=== PATIENT | male | born 1950 | race Caucasian/White ===

== ENCOUNTER 2018-07-09 20:06 | Emergency (ER) | payer MEDICARE, OTHER, SELFPAY ==
--- NOTE | 2018-07-09 20:06 | DI.CT.S_ITS ---
PROCEDURE: CT HEAD/BRAIN WO CON INDICATIONS: stroke symptoms w/fall TECHNIQUE: Noncontrast 4.5 mm thick angled axial sections acquired from the foramen magnum to the vertex, with coronal and sagittal reformats. For radiation dose reduction, the following was used: automated exposure control, adjustment of mA and/or kV according to patient size. COMPARISON: [facility], CT, CT CERVICAL SPINE WO CON, 07/09/2018, 20:03. FINDINGS: Image quality: Excellent. CSF spaces: Basal cisterns are patent. No extra-axial fluid collections. The ventricles are symmetric in size and shape. Brain: No intracranial bleeds or masses. There is cerebral volume loss for age, with resultant ventricular and sulcal prominence. There are periventricular and deep white matter chronic small vessel ischemic changes. There is intracranial internal carotid artery atherosclerosis. Skull and face: Calvarium and visualized facial bones appear intact, without suspicious lesions. Sinuses: Moderate mucosal thickening is seen within the ethmoid air cells. Prior antrectomy changes are seen. No abnormal mass air cell fluid is seen. IMPRESSION: Negative for acute hemorrhage. Unremarkable scan for age. Note: Case discussed by telephone with Dr. Quan at 8:20 PM on July 09, 2018. Dictated by: Rubén Lyons M.D. on 07/09/2018 at 20:19 Approved by: Rubén Lyons M.D. on 07/09/2018 at 20:21
--- NOTE | 2018-07-09 20:07 | DI.CT.S_ITS ---
PROCEDURE: CT CERVICAL SPINE WO CON INDICATIONS: fall with stroke TECHNIQUE: Noncontrast 3 mm thick sections acquired from the skull base to the T4 level. Sagittal and coronal reformats were then constructed. For radiation dose reduction, the following was used: automated exposure control, adjustment of mA and/or kV according to patient size. COMPARISON: [facility], CT, CT HEAD/BRAIN WO CON, 07/09/2018, 20:03. FINDINGS: Image quality: Excellent. Bones: Perched facets are seen at the C3-C4 level, with fracture of the inferior facet on the right at C3. There is anterolisthesis seen 4 mm. At this level, there is also fragmentation of the left-sided uncovertebral joint osteophytes. No additional fractures are seen. Moderate disc space narrowing is seen at the C3-C4, C4-C5, C5-C6, and C6-C7 levels. Endplate irregularity and sclerosis are seen, which are most prominent at the C5-C6 level. Posteriorly directed osteophytes are seen at several levels, although most prominently at C5-C6. At C5-C6, there is moderate to severe bilateral neural foraminal narrowing and moderate to severe central canal narrowing, as on series 2 image 38. Milder degenerative changes are seen elsewhere. Soft tissues: Prevertebral soft tissues are normal in thickness. No paravertebral hematomas. No apical pneumothoraces. Venous gas is seen, which is attributed to IV access. IMPRESSION: Perched facets with facet fracture at the C3-C4 level. Degenerative changes are seen, which are most prominent at C5-C6. Note: Case discussed by telephone with Dr. Quan at 8:26 PM on July 09, 2018. Dictated by: Rubén Lyons M.D. on 07/09/2018 at 20:22 Approved by: Rubén Lyons M.D. on 07/09/2018 at 20:29
[2018-07-09 20:15] VITALS: BP 138/65; PULSE 94; RESP 15; TEMP 36.2; O2SAT 100; BMI 24.8
--- NOTE | 2018-07-09 20:22 | ED.NEUROSD ---
HPI - Neuro Symptoms/Deficit General Chief Complaint: Neuro Symptoms/Deficit Stated Complaint: Code Stroke Time Seen by Provider: 07/09/18 20:06 Source: patient, family and EMS Mode of arrival: EMS Limitations: no limitations History of Present Illness HPI Narrative: Patient is a 67-year-old male who presents after a syncopal episode and left-sided weakness. He was standing in the kitchen with his family he had had 1 beer he does admit to smoking marijuana neither which have is atypical for him. He got extremely lightheaded and fell backwards striking his head. He had a brief loss of consciousness but was awake and alert and talking when EMS arrived. EMS did find that he was severely hypotensive and immediately started IV fluids. Blood pressure now is a normal limits. Glucose was also normal. He had definite left-sided arm weakness he was unable to move his arm at all or [employer] member strength. He had no facial drooping no difficulty speaking no leg weakness. Not complaining of any pain. He said he has been having some chest pain off an on for the past couple of months seems to be worse when he eats. He denies having any chest pain prior to his syncopal episode. Related Data Home Medications Medication Instructions Recorded Confirmed bupropion HCl [Wellbutrin XL] 300 mg PO QDAY #0 02/01/12 ACETAMINOPHEN (#TYLENOL) 1,000 mg PO Q4HP #0 03/29/13 NAPROXEN (NAPROSYN) 250 mg PO Q12H #0 03/29/13 meloxicam 15 mg PO QDAY #0 08/11/16 Allergies Allergy/AdvReac Type Severity Reaction Status Date / Time aspirin [ASPIRIN] Allergy Mild STUFFY Unverified 01/26/18 12:14 NOSE, WATERING EYES Review of Systems Review of Systems All systems reviewed & are unremarkable except as noted in HPI and below Constitutional Denies chills, Denies fever(s), Denies frequent falls, Denies lethargy and Denies weakness Eyes Denies change in vision, Denies eye discharge, Denies irritation and Denies loss of vision ENT Ears, Nose, Mouth, and Throat: Denies change in voice, Denies vertigo, Denies dizziness, Reports neck pain and Denies sore throat Cardiovascular Reports as per HPI, Reports chest pain, Reports syncope, Denies dyspnea and Denies dyspnea on exertion Respiratory Denies cough, Denies dyspnea, Denies dyspnea on exertion and Denies wheezing Gastrointestinal Gastrointestinal: Denies abdominal pain, Denies change in bowel habits, Denies diarrhea, Denies nausea and Denies vomiting Musculoskeletal Reports as per HPI, Reports muscle weakness and Reports neck pain Integumentary/Breasts Denies pruritus, Denies erythema, Denies rash and Denies wounds Neurologic Reports as per HPI, Denies abnormal speech, Denies vertigo, Denies dizziness, Reports syncope, Denies frequent falls, Denies lack of coordination, Denies focal weakness, Denies loss of vision, Denies convulsions, Denies seizure-like activity, Reports paresthesias (Left arm) and Denies weakness Allergic/Immunologic Denies wheezing [facility] History Healthy adult (Acute) Social History Smoking Status: Former smoker Exam Initial Vital Signs Initial Vital Signs: Vital Signs Temperature 97.2 F L 07/09/18 20:15 Pulse Rate 94 H 07/09/18 20:15 Respiratory Rate 15 07/09/18 20:15 Blood Pressure 138/65 07/09/18 20:15 Pulse Oximetry 100 07/09/18 20:15 GENERAL: Awake alert male no acute distress HEENT: Head atraumatic,EOMI, pupils reactive, face symmetric, NECK: C-collar in place some midline tenderness on and paraspinal tenderness more to the left than right CARDIOVASCULAR: Regular rate and rhythm without murmurs, rubs or gallops. RESPIRATORY: Breath sounds equal bilaterally, no wheezes rales or rhonchi. ABDOMEN: Soft, nontender. Normoactive bowel sounds all 4 quadrants. No guarding or rebound. BACK: No thoracic or lumbar tenderness no sign of trauma no step-off EXTREMITIES: Normal range of motion, no clubbing or edema. Neurovascularly intact NEUROLOGICAL: Alert and oriented x4.Normal gait and speech. Cranial nerves II through XII grossly intact. Good uxhlza-ke-iqsq, good vees-sf-souf, no dysarthria or aphasia, sensation in tact to soft touch bilaterally, no visual changes, no facial droop Left hand strength is definitely weaker than right. He is able flex and extend at his elbow when he starts moving his left shoulder he has extreme pain. SKIN: Warm, dry, no laceration, no petechiae, no rashes or lesions. Scores NIH Stroke Scale Level of Conciousness: Alert, keenly responsive Ask month/age: Answers both questions correctly. Open/close eyes, close hand: Performs both tasks correctly Best gaze horizontal: Normal Visual argueta: No visual loss Facial palsy: Normal symetrical movement Left arm drift: Some effort against gravity, cannot maintain, drifts down to bed Right arm drift: No drift for full 10 sec Left leg drift: No drift for full 10 sec Right leg drift: No drift for full 10 sec Limb ataxia: Absent Sensory on face/arms/legs: Normal, no sensory loss Best language: No aphasia, normal Dysarthria: Normal Extinction or inattention: No abnormality Total NIH Stroke scale score: 2 Course Orders Ordered: ED Orders 07/09/18 20:06 CT head/brain wo con Stat EKG-12 Lead Stat 07/09/18 20:07 CT cervical spine wo con Stat 07/09/18 20:22 CT angio head and neck Stat 07/09/18 20:44 Complete Blood Count AUTO DIFF Stat Comprehensive Metabolic Panel Stat Partial Thromboplastin Time Stat Prothrombin Time INR Stat Troponin & CK Cardiac Panel Stat 07/09/18 21:17 XR chest 1V Stat Discontinued Medications Hydromorphone HCl (Dilaudid) 0.5 mg IV NOW ONE Stop: 07/09/18 21:14 Last Admin: 07/09/18 21:14 Dose: 0.5 mg Hydromorphone HCl (Dilaudid) 1 mg IV NOW ONE Stop: 07/09/18 21:50 Last Admin: 07/09/18 21:56 Dose: 1 mg Sodium Chloride (Normal Saline 0.9%) 1,000 mls @ 150 mls/hr IV CONT CASE Last Infusion: 07/09/18 22:33 Dose: 0 mls/hr Admin: 07/09/18 21:14 Dose: 150 mls/hr Sodium Chloride (Normal Saline 0.9%) 1,000 mls @ 150 mls/hr IV CONT CASE Last Admin: 07/09/18 21:14 Dose: Not Given Vital Signs - 8 hr 07/09/18 20:15 07/09/18 21:01 07/09/18 21:30 Temperature 97.2 F L Pulse Rate 94 H 92 H 95 H Respiratory Rate 15 19 17 Blood Pressure 138/65 Blood Pressure [Right Arm] 137/67 143/69 H Pulse Oximetry 100 100 100 07/09/18 22:00 07/09/18 22:19 Temperature Pulse Rate 98 H 94 H Respiratory Rate 27 H 16 Blood Pressure 133/78 Blood Pressure [Right Arm] 133/78 Pulse Oximetry 98 99 MDM - Neuro Symptoms/Deficit Lab Data Attestation: I reviewed the patient's lab results. Result diagrams: 07/09/18 20:44 07/09/18 20:44 Lab Results 07/09/18 07/09/18 07/09/18 Range/Units 20:44 20:44 20:44 WBC 6.7 (4.5-11.0) X10^3/uL RBC 4.48 L (4.5-5.9) X10^6/uL Hgb 14.2 (13.5-17.5) g/dL Hct 41.1 (41-53) % MCV 91.7 (80-100) fL MCH 31.7 (26-34) PG MCHC 34.6 (30-36) % RDW 13.0 (11.6-14.8) % Plt Count 185 (150-400) X10^3/uL Neut % (Auto) 46.0 L (50-75) % Lymph % (Auto) 37.6 (25-40) % [place] % (Auto) 12.9 (3-14) % Eos % (Auto) 2.7 (2-4) % Baso % (Auto) 0.8 (0-2) % Neut # (Auto) 3100 (0742-6634) /uL PT 11.7 (10.1-12.7) SECONDS INR 1.1 (0.9-1.3) APTT 25 L (26.4-36.2) SECONDS Sodium 139 (137-145) mmol/L Potassium 4.0 (3.4-5.1) mmol/L Chloride 102 (98-107) mmol/L Carbon Dioxide 28 (22-32) mmol/L BUN 19 (9-20) mg/dL Creatinine 1.00 (0.66-1.25) mg/dL Estimated GFR > 60.0 (>60) mL/min BUN/Creatinine Ratio 19.0 (6-22) Glucose 98 (80-110) mg/dL Calcium 8.4 (8.4-10.2) mg/dL Total Bilirubin 0.5 (0.2-1.3) mg/dL AST 31 (17-59) IU/L ALT 36 (21-72) IU/L Alkaline Phosphatase 56 (38-126) U/L Total Creatine Kinase 154 (55-170) U/L CK-MB (CK-2) 2.66 H (<2.37) ng/mL CK-MB (CK-2) Rel Index 1.7 (1.5-5.0) % Troponin I < 0.012 (0.01-0.034) ng/mL Total Protein 5.8 L (6.3-8.2) g/dL Albumin 3.6 (3.5-5.0) g/dL Globulin 2.2 (1.7-4.1) g/dL Albumin/Globulin Ratio 1.6 (1.0-2.8) Point of Care Testing Glucose POC [address] scan - head: Radiologist's impression: [address] [address] [address] Scan Report Signed Patient: Reynaldo Main MR#: [id number] : 1950 Acct:[id number] Age/Sex: 67 / M Date of Service: 07/09/18 Loc: ED Accession Number: [id number] Procedure: CT head/brain wo con Ordering Provider: Dallin Neal D.O. PROCEDURE: CT HEAD/BRAIN WO CON INDICATIONS: stroke symptoms w/fall TECHNIQUE: Noncontrast 4.5 mm thick angled axial sections acquired from the foramen magnum to the vertex, with coronal and sagittal reformats. For radiation dose reduction, the following was used: automated exposure control, adjustment of mA and/or kV according to patient size. COMPARISON: [facility], CT, CT CERVICAL SPINE WO CON, 07/09/2018, 20:03. FINDINGS: Image quality: Excellent. CSF spaces: Basal cisterns are patent. No extra-axial fluid collections. The ventricles are symmetric in size and shape. Brain: No intracranial bleeds or masses. There is cerebral volume loss for age, with resultant ventricular and sulcal prominence. There are periventricular and deep white matter chronic small vessel ischemic changes. There is intracranial internal carotid artery atherosclerosis. Skull and face: Calvarium and visualized facial bones appear intact, without suspicious lesions. Sinuses: Moderate mucosal thickening is seen within the ethmoid air cells. Prior antrectomy changes are seen. No abnormal mass air cell fluid is seen. IMPRESSION: Negative for acute hemorrhage. Unremarkable scan for age. Note: Case discussed by telephone with Dr. Quan at 8:20 PM on July 09, 2018. Dictated by: Rubén Lyons M.D. on 07/09/2018 at 20:19 CT C-spine: Radiologist's impression: [address] [address] [address] Scan Report Signed Patient: Reynaldo Main MR#: [id number] : 1950 Acct:[id number] Age/Sex: 67 / M Date of Service: 07/09/18 Loc: ED Accession Number: [id number] Procedure: CT cervical spine wo con Ordering Provider: Dallin Neal D.O. PROCEDURE: CT CERVICAL SPINE WO CON INDICATIONS: fall with stroke TECHNIQUE: Noncontrast 3 mm thick sections acquired from the skull base to the T4 level. Sagittal and coronal reformats were then constructed. For radiation dose reduction, the following was used: automated exposure control, adjustment of mA and/or kV according to patient size. COMPARISON: [facility], CT, CT HEAD/BRAIN WO CON, 07/09/2018, 20:03. FINDINGS: Image quality: Excellent. Bones: Perched facets are seen at the C3-C4 level, with fracture of the inferior facet on the right at C3. There is anterolisthesis seen 4 mm. At this level, there is also fragmentation of the left-sided uncovertebral joint osteophytes. No additional fractures are seen. Moderate disc space narrowing is seen at the C3-C4, C4-C5, C5-C6, and C6-C7 levels. Endplate irregularity and sclerosis are seen, which are most prominent at the C5-C6 level. Posteriorly directed osteophytes are seen at several levels, although most prominently at C5-C6. At C5-C6, there is moderate to severe bilateral neural foraminal narrowing and moderate to severe central canal narrowing, as on series 2 image 38. Milder degenerative changes are seen elsewhere. Soft tissues: Prevertebral soft tissues are normal in thickness. No paravertebral hematomas. No apical pneumothoraces. Venous gas is seen, which is attributed to IV access. IMPRESSION: Perched facets with facet fracture at the C3-C4 level. Degenerative changes are seen, which are most prominent at C5-C6. Note: Case discussed by telephone with Dr. Quan at 8:26 PM on July 09, 2018. Dictated by: Rubén Lyons M.D. on 07/09/2018 at 20:22 Approved by: Rubén Lyons M.D. on 07/09/2018 at 20:29 CTA head and neck: Radiologist's impression: [place] [address] CT Scan Report Signed Patient: Reynaldo Main MR#: [id number] : 1950 Acct:[id number] Age/Sex: 67 / M Date of Service: 07/09/18 Loc: ED Accession Number: [id number] Procedure: CT angio head and neck Ordering Provider: Ann Quan D.O. PROCEDURE: CT ANGIO HEAD AND NECK INDICATIONS: left sudden weakness and syncope TECHNIQUE: Noncontrast images were recently performed and not repeated. After the administration of intravenous contrast, 1 mm thick sections acquired from the aortic arch through the [place]. Post-contrast 4.5 mm thick sections then re-acquired from the foramen magnum to the vertex. 3-dimensional ytjtede-sghvbfkxa-fuljvqhmbn (MIP) and/or volume rendering reformats were acquired of the central intracranial vasculature and neck separately. COMPARISON: [facility], CT, CT HEAD/BRAIN WO CON, 07/09/2018, 20:03. [facility], CT, CT CERVICAL SPINE WO CON, 07/09/2018, 20:03. FINDINGS: Image quality: Excellent. BRAIN: CSF spaces: Ventricles are normal in size and shape. Basal cisterns are patent. No extra-axial fluid collections. Brain: No midline shift. No intracranial bleeds or masses. Hernandez-white matter interface appears intact. Skull and face: Calvarium and facial bones appear intact, without suspicious lesions. Orbits appear normal. Sinuses: Sinuses and mastoids are clear. HEAD CT ANGIOGRAPHY: Anterior circulation: Intracranial internal carotid arteries are normal in size and flow. The flow within the paired anterior cerebral arteries is normal and symmetric. The flow within the middle cerebral arteries is normal and symmetric. The anterior communicating artery is seen. No aneurysms are seen. Posterior circulation: Visualized portions of the vertebral arteries demonstrate normal caliber, and join to form a normal appearing basilar artery. Flow within the posterior cerebral arteries is normal and symmetric. No aneurysms are seen. NECK CT ANGIOGRAPHY: Carotid system: The great vessels demonstrate a conventional anatomy as they arise from the aortic arch. The origins of the common carotid arteries appear patent. The common carotid arteries demonstrate normal caliber and courses. The bifurcation regions are both widely patent. The internal carotid arteries demonstrate normal calibers and courses. Posterior circulation: The origins of the vertebral arteries both appear widely patent. The more superior extracranial portions of both vertebral arteries also demonstrate normal courses and calibers. They join to form a normal appearing basilar artery. Soft tissues: Visualized neck soft tissues demonstrate no suspicious abnormalities. Bones: No suspicious bony lesions. Perched facets and right facet fracture can be seen at C3-C4. Degenerative changes are seen. IMPRESSION: No abnormal intracranial enhancement. No significant abnormality of the intracranial arteries can be seen. No hemodynamically significant stenosis seen involving the arteries of the neck. Perched facets at C3-C4, with associated facet fracture. Please see the recent CT C-spine report. Any quantitative measurements of stenosis were performed using NASCET criteria. Dictated by: Rubén Lyons M.D. on 07/09/2018 at 20:47 Approved by: Rubén Lyons M.D. on 07/09/2018 at 20:51 ECG Data Attestation: I personally reviewed and interpreted this ECG as follows: Prior ECG tracings: not available for review Interpretation: EKG sinus tachycardia rate [address] depression no elevations no T-wave inversions MDM Narrative Medical decision making narrative: Patient's [employer] member strength is actually getting better. CT is reviewed C3-C4 fracture. I think that his left arm weakness and strength deficit is actually Neurologic from his neck injury. possible spinal cord or nerve damage from fracture causing weakness. I do not believe this to be stroke at this time. He was no other deficits. I have discussed with Dr. hines ER physician at [facility] happily accepts patient. I have discussed with patient and family ear lift her cyst ground transport. At this time due to neurologic deficits even though improving I do recommend airlift they are agreeable. Unclear what was cause of the syncopal episode. Discharge Plan Departure Patient Disposition: [facility] Clinical Impression: Syncope, C3 cervical fracture, C4 cervical fracture Discharge Date/Time: 07/09/18 22:40 Interventions: ED Discharge Assessment Last Done: 07/09/18 23:03 Prescriptions: No Action bupropion HCl [Wellbutrin XL] 150 MG tablet extended release 24 hr 300 mg PO QDAY Qty: 0 RF: 0 NAPROXEN (NAPROSYN) 250 mg PO Q12H Qty: 0 RF: 0 ACETAMINOPHEN (#TYLENOL) 1,000 mg PO Q4HP Qty: 0 RF: 0 meloxicam 15 MG tablet 15 mg PO QDAY Qty: 0 RF: 0
--- NOTE | 2018-07-09 20:45 | PC.NURSE ---
patient changed from hard disposable collar to the vista collar while maintaining c-spine. MD aware and at bedside.
[2018-07-09 20:56] LABS: Add Manual Diff / Slide Review NO; Basophils Percent Auto 0.8 % (0-2); Eosinophils Percent Auto 2.7 % (2-4); Hematocrit 41.1 % (41-53); Hemoglobin 14.2 g/dL (13.5-17.5); Lymphocytes Percent Auto 37.6 % (25-40); Mean Corpuscular HGB Conc 34.6 % (30-36); Mean Corpuscular Hemoglobin 31.7 PG (26-34); Mean Corpuscular Volume 91.7 fL (80-100); Monocytes Percent Auto 12.9 % (3-14); Neutrophils Absolute Auto 3100 /uL (3000-5900); Platelet Count 185 X10^3/uL (150-400); Red Blood Cell Count 4.48 X10^6/uL (4.5-5.9); White Blood Cell Count 6.7 X10^3/uL (4.5-11.0)
[2018-07-09 21:01] VITALS: BP 137/67; PULSE 92; RESP 19; O2SAT 100
[2018-07-09 21:03] LABS: INR 1.1 (0.9-1.3); Prothrombin Time 11.7 SECONDS (10.1-12.7)
[2018-07-09 21:05] LABS: PTT Partial Thromboplastin Tim 25 SECONDS (26.4-36.2)
[2018-07-09 21:11] LABS: Alanine Aminotransferase 36 IU/L (21-72); Albumin 3.6 g/dL (3.5-5.0); Albumin Globulin Ratio 1.6 (1.0-2.8); Alkaline Phosphatase 56 U/L (38-126); Aspartate Aminotransferase 31 IU/L (17-59); Bilirubin Total 0.5 mg/dL (0.2-1.3); Blood Urea Nitrogen 19 mg/dL (9-20); Calcium 8.4 mg/dL (8.4-10.2); Carbon Dioxide 28 mmol/L (22-32); Chloride 102 mmol/L (98-107); Creatine Kinase 154 U/L (55-170); Estimated Glomerular Filt Rate > 60.0 mL/min (>60); Globulin 2.2 g/dL (1.7-4.1); Glucose 98 mg/dL (80-110); HEMOLYSIS < 15 (0-50); Sodium 139 mmol/L (137-145); Total Protein 5.8 g/dL (6.3-8.2)
[2018-07-09] MEDS: SODIUM CHLORIDE 0.9% 1,000 ML 150 ML IV (21:14)
[2018-07-09] MEDS: HYDROMORPHONE 1 MG INJ 0.5 MG IV (21:14)
--- NOTE | 2018-07-09 21:17 | DI.RAD.S_ITS ---
PROCEDURE: XR CHEST 1V INDICATIONS: chest pain fall backwards TECHNIQUE: One view of the chest was acquired. COMPARISON: None. FINDINGS: Surgical changes and devices: None. Lungs and pleura: No pleural effusions or pneumothorax. Lungs are clear. Mediastinum: Mediastinal contours appear normal. Heart size is normal. Bones and chest wall: No suspicious bony lesions. Overlying soft tissues appear unremarkable. IMPRESSION: No acute cardiopulmonary disease process. Dictated by: Lindsay Coppola MD, PhD on 07/10/2018 at 10:45 Approved by: Lindsay Coppola MD, PhD on 07/10/2018 at 10:46
[2018-07-09 21:26] LABS: CKMB % Relative Index 1.7 % (1.5-5.0); Creatine Kinase MB 2.66 ng/mL (<2.37)
[2018-07-09 21:27] LABS: Troponin I < 0.012 ng/mL (0.01-0.034)
[2018-07-09 21:30] VITALS: BP 143/69; PULSE 95; RESP 17; O2SAT 100
[2018-07-09] MEDS: HYDROMORPHONE 2 MG INJ 1 MG IV (21:56)
[2018-07-09 22:00] VITALS: BP 133/78; PULSE 98; RESP 27; O2SAT 98
[2018-07-09 22:19] VITALS: BP 133/78; PULSE 94; RESP 16; O2SAT 99
--- NOTE | 2018-07-09 22:38 | ED_ITS ---
HPI - Neuro Symptoms/Deficit General Chief Complaint: Neuro Symptoms/Deficit Stated Complaint: Code Stroke Time Seen by Provider: 07/09/18 20:06 Source: patient, family and EMS Mode of arrival: EMS Limitations: no limitations History of Present Illness HPI Narrative: Patient is a 67-year-old male who presents after a syncopal episode and left-sided weakness. He was standing in the kitchen with his family he had had 1 beer he does admit to smoking marijuana neither which have is atypical for him. He got extremely lightheaded and fell backwards striking his head. He had a brief loss of consciousness but was awake and alert and talking when EMS arrived. EMS did find that he was severely hypotensive and immediately started IV fluids. Blood pressure now is a normal limits. Glucose was also normal. He had definite left-sided arm weakness he was unable to move his arm at all or jira developer strength. He had no facial drooping no difficulty speaking no leg weakness. Not complaining of any pain. He said he has been having some chest pain off an on for the past couple of months seems to be worse when he eats. He denies having any chest pain prior to his syncopal episode. Related Data Home Medications Medication Instructions Recorded Confirmed bupropion HCl [Wellbutrin XL] 300 mg PO QDAY #0 02/01/12 ACETAMINOPHEN (#TYLENOL) 1,000 mg PO Q4HP #0 03/29/13 NAPROXEN (NAPROSYN) 250 mg PO Q12H #0 03/29/13 meloxicam 15 mg PO QDAY #0 08/11/16 Allergies Allergy/AdvReac Type Severity Reaction Status Date / Time aspirin [ASPIRIN] Allergy Mild STUFFY Unverified 01/26/18 12:14 NOSE, WATERING EYES Review of Systems Review of Systems All systems reviewed & are unremarkable except as noted in HPI and below Constitutional Denies chills, Denies fever(s), Denies frequent falls, Denies lethargy and Denies weakness Eyes Denies change in vision, Denies eye discharge, Denies irritation and Denies loss of vision ENT Ears, Nose, Mouth, and Throat: Denies change in voice, Denies vertigo, Denies dizziness, Reports neck pain and Denies sore throat Cardiovascular Reports as per HPI, Reports chest pain, Reports syncope, Denies dyspnea and Denies dyspnea on exertion Respiratory Denies cough, Denies dyspnea, Denies dyspnea on exertion and Denies wheezing Gastrointestinal Gastrointestinal: Denies abdominal pain, Denies change in bowel habits, Denies diarrhea, Denies nausea and Denies vomiting Musculoskeletal Reports as per HPI, Reports muscle weakness and Reports neck pain Integumentary/Breasts Denies pruritus, Denies erythema, Denies rash and Denies wounds Neurologic Reports as per HPI, Denies abnormal speech, Denies vertigo, Denies dizziness, Reports syncope, Denies frequent falls, Denies lack of coordination, Denies focal weakness, Denies loss of vision, Denies convulsions, Denies seizure-like activity, Reports paresthesias (Left arm) and Denies weakness Allergic/Immunologic Denies wheezing [facility] Medical History Healthy adult (Acute) Social History Smoking Status: Former smoker Exam Initial Vital Signs Initial Vital Signs: Vital Signs Temperature 97.2 F L 07/09/18 20:15 Pulse Rate 94 H 07/09/18 20:15 Respiratory Rate 15 07/09/18 20:15 Blood Pressure 138/65 07/09/18 20:15 Pulse Oximetry 100 07/09/18 20:15 GENERAL: Awake alert male no acute distress HEENT: Head atraumatic,EOMI, pupils reactive, face symmetric, NECK: C-collar in place some midline tenderness on and paraspinal tenderness more to the left than right CARDIOVASCULAR: Regular rate and rhythm without murmurs, rubs or gallops. RESPIRATORY: Breath sounds equal bilaterally, no wheezes rales or rhonchi. ABDOMEN: Soft, nontender. Normoactive bowel sounds all 4 quadrants. No guarding or rebound. BACK: No thoracic or lumbar tenderness no sign of trauma no step-off EXTREMITIES: Normal range of motion, no clubbing or edema. Neurovascularly intact NEUROLOGICAL: Alert and oriented x4.Normal gait and speech. Cranial nerves II through XII grossly intact. Good ltvebo-ih-drai, good xnsl-zf-kpio, no dysarthria or aphasia, sensation in tact to soft touch bilaterally, no visual changes, no facial droop Left hand strength is definitely weaker than right. He is able flex and extend at his elbow when he starts moving his left shoulder he has extreme pain. SKIN: Warm, dry, no laceration, no petechiae, no rashes or lesions. Scores NIH Stroke Scale Level of Conciousness: Alert, keenly responsive Ask month/age: Answers both questions correctly. Open/close eyes, close hand: Performs both tasks correctly Best gaze horizontal: Normal Visual argueta: No visual loss Facial palsy: Normal symetrical movement Left arm drift: Some effort against gravity, cannot maintain, drifts down to bed Right arm drift: No drift for full 10 sec Left leg drift: No drift for full 10 sec Right leg drift: No drift for full 10 sec Limb ataxia: Absent Sensory on face/arms/legs: Normal, no sensory loss Best language: No aphasia, normal Dysarthria: Normal Extinction or inattention: No abnormality Total NIH Stroke scale score: 2 Course Orders Ordered: ED Orders 07/09/18 20:06 CT head/brain wo con Stat EKG-12 Lead Stat 07/09/18 20:07 CT cervical spine wo con Stat 07/09/18 20:22 CT angio head and neck Stat 07/09/18 20:44 Complete Blood Count AUTO DIFF Stat Comprehensive Metabolic Panel Stat Partial Thromboplastin Time Stat Prothrombin Time INR Stat Troponin & CK Cardiac Panel Stat 07/09/18 21:17 XR chest 1V Stat Discontinued Medications Hydromorphone HCl (Dilaudid) 0.5 mg IV NOW ONE Stop: 07/09/18 21:14 Last Admin: 07/09/18 21:14 Dose: 0.5 mg Hydromorphone HCl (Dilaudid) 1 mg IV NOW ONE Stop: 07/09/18 21:50 Last Admin: 07/09/18 21:56 Dose: 1 mg Sodium Chloride (Normal Saline 0.9%) 1,000 mls @ 150 mls/hr IV CONT CASE Last Infusion: 07/09/18 22:33 Dose: 0 mls/hr Admin: 07/09/18 21:14 Dose: 150 mls/hr Sodium Chloride (Normal Saline 0.9%) 1,000 mls @ 150 mls/hr IV CONT CASE Last Admin: 07/09/18 21:14 Dose: Not Given Vital Signs - 8 hr 07/09/18 20:15 07/09/18 21:01 07/09/18 21:30 Temperature 97.2 F L Pulse Rate 94 H 92 H 95 H Respiratory Rate 15 19 17 Blood Pressure 138/65 Blood Pressure [Right Arm] 137/67 143/69 H Pulse Oximetry 100 100 100 07/09/18 22:00 07/09/18 22:19 Temperature Pulse Rate 98 H 94 H Respiratory Rate 27 H 16 Blood Pressure 133/78 Blood Pressure [Right Arm] 133/78 Pulse Oximetry 98 99 MDM - Neuro Symptoms/Deficit Lab Data Attestation: I reviewed the patient's lab results. Result diagrams: 07/09/18 20:44 07/09/18 20:44 Lab Results 07/09/18 07/09/18 07/09/18 Range/Units 20:44 20:44 20:44 WBC 6.7 (4.5-11.0) X10^3/uL RBC 4.48 L (4.5-5.9) X10^6/uL Hgb 14.2 (13.5-17.5) g/dL Hct 41.1 (41-53) % MCV 91.7 (80-100) fL MCH 31.7 (26-34) PG MCHC 34.6 (30-36) % RDW 13.0 (11.6-14.8) % Plt Count 185 (150-400) X10^3/uL Neut % (Auto) 46.0 L (50-75) % Lymph % (Auto) 37.6 (25-40) % Gillespie % (Auto) 12.9 (3-14) % Eos % (Auto) 2.7 (2-4) % Baso % (Auto) 0.8 (0-2) % Neut # (Auto) 3100 (0853-4832) /uL PT 11.7 (10.1-12.7) SECONDS INR 1.1 (0.9-1.3) APTT 25 L (26.4-36.2) SECONDS Sodium 139 (137-145) mmol/L Potassium 4.0 (3.4-5.1) mmol/L Chloride 102 (98-107) mmol/L Carbon Dioxide 28 (22-32) mmol/L BUN 19 (9-20) mg/dL Creatinine 1.00 (0.66-1.25) mg/dL Estimated GFR > 60.0 (>60) mL/min BUN/Creatinine Ratio 19.0 (6-22) Glucose 98 (80-110) mg/dL Calcium 8.4 (8.4-10.2) mg/dL Total Bilirubin 0.5 (0.2-1.3) mg/dL AST 31 (17-59) IU/L ALT 36 (21-72) IU/L Alkaline Phosphatase 56 (38-126) U/L Total Creatine Kinase 154 (55-170) U/L CK-MB (CK-2) 2.66 H (<2.37) ng/mL CK-MB (CK-2) Rel Index 1.7 (1.5-5.0) % Troponin I < 0.012 (0.01-0.034) ng/mL Total Protein 5.8 L (6.3-8.2) g/dL Albumin 3.6 (3.5-5.0) g/dL Globulin 2.2 (1.7-4.1) g/dL Albumin/Globulin Ratio 1.6 (1.0-2.8) Point of Care Testing Glucose POC [address] scan - head: Radiologist's impression: [address] [address] [address] Scan Report Signed Patient: Reynaldo Main MR#: [id number] : 1950 Acct:[id number] Age/Sex: 67 / M Date of Service: 07/09/18 Loc: ED Accession Number: [id number] Procedure: CT head/brain wo con Ordering Provider: Dallin Neal D.O. PROCEDURE: CT HEAD/BRAIN WO CON INDICATIONS: stroke symptoms w/fall TECHNIQUE: Noncontrast 4.5 mm thick angled axial sections acquired from the foramen magnum to the vertex, with coronal and sagittal reformats. For radiation dose reduction, the following was used: automated exposure control, adjustment of mA and/or kV according to patient size. COMPARISON: [facility], CT, CT CERVICAL SPINE WO CON, 07/09/2018, 20:03. FINDINGS: Image quality: Excellent. CSF spaces: Basal cisterns are patent. No extra-axial fluid collections. The ventricles are symmetric in size and shape. Brain: No intracranial bleeds or masses. There is cerebral volume loss for age , with resultant ventricular and sulcal prominence. There are periventricular and deep white matter chronic small vessel ischemic changes. There is intracranial internal carotid artery atherosclerosis. Skull and face: Calvarium and visualized facial bones appear intact, without suspicious lesions. Sinuses: Moderate mucosal thickening is seen within the ethmoid air cells. Prior antrectomy changes are seen. No abnormal mass air cell fluid is seen. IMPRESSION: Negative for acute hemorrhage. Unremarkable scan for age. Note: Case discussed by telephone with Dr. Quan at 8:20 PM on July 09, 2018. Dictated by: Rubén Lyons M.D. on 07/09/2018 at 20:19 CT C-spine: Radiologist's impression: [address] [address] [address] Scan Report Signed Patient: Reynaldo Main MR#: [id number] : 1950 Acct:[id number] Age/Sex: 67 / M Date of Service: 07/09/18 Loc: ED Accession Number: [id number] Procedure: CT cervical spine wo con Ordering Provider: Dallin Neal D.O. PROCEDURE: CT CERVICAL SPINE WO CON INDICATIONS: fall with stroke TECHNIQUE: Noncontrast 3 mm thick sections acquired from the skull base to the T4 level. Sagittal and coronal reformats were then constructed. For radiation dose reduction, the following was used: automated exposure control, adjustment of mA and/or kV according to patient size. COMPARISON: [facility], CT, CT HEAD/BRAIN WO CON, 07/09/2018, 20:03. FINDINGS: Image quality: Excellent. Bones: Perched facets are seen at the C3-C4 level, with fracture of the inferior facet on the right at C3. There is anterolisthesis seen 4 mm. At this level, there is also fragmentation of the left-sided uncovertebral joint osteophytes. No additional fractures are seen. Moderate disc space narrowing is seen at the C3-C4, C4-C5, C5-C6, and C6-C7 levels. Endplate irregularity and sclerosis are seen, which are most prominent at the C5-C6 level. Posteriorly directed osteophytes are seen at several levels, although most prominently at C5-C6. At C5-C6, there is moderate to severe bilateral neural foraminal narrowing and moderate to severe central canal narrowing, as on series 2 image 38. Milder degenerative changes are seen elsewhere. Soft tissues: Prevertebral soft tissues are normal in thickness. No paravertebral hematomas. No apical pneumothoraces. Venous gas is seen, which is attributed to IV access. IMPRESSION: Perched facets with facet fracture at the C3-C4 level. Degenerative changes are seen, which are most prominent at C5-C6. Note: Case discussed by telephone with Dr. Quan at 8:26 PM on July 09, 2018. Dictated by: Rubén Lyons M.D. on 07/09/2018 at 20:22 Approved by: Rubén Lyons M.D. on 07/09/2018 at 20:29 CTA head and neck: Radiologist's impression: [place] [address] CT Scan Report Signed Patient: Reynaldo Main MR#: [id number] : 1950 Acct:[id number] Age/Sex: 67 / M Date of Service: 07/09/18 Loc: ED Accession Number: [id number] Procedure: CT angio head and neck Ordering Provider: Ann Quan D.O. PROCEDURE: CT ANGIO HEAD AND NECK INDICATIONS: left sudden weakness and syncope TECHNIQUE: Noncontrast images were recently performed and not repeated. After the administration of intravenous contrast, 1 mm thick sections acquired from the aortic arch through the [place]. Post-contrast 4.5 mm thick sections then re-acquired from the foramen magnum to the vertex. 3-dimensional vlvqpip-vamzguwpf-hpiwjwveqg (MIP) and/or volume rendering reformats were acquired of the central intracranial vasculature and neck separately. COMPARISON: [facility], CT, CT HEAD/BRAIN WO CON, 07/09/2018, 20:03. [facility], CT, CT CERVICAL SPINE WO CON, 07/09/2018, 20:03. FINDINGS: Image quality: Excellent. BRAIN: CSF spaces: Ventricles are normal in size and shape. Basal cisterns are patent. No extra-axial fluid collections. Brain: No midline shift. No intracranial bleeds or masses. Hernandez-white matter interface appears intact. Skull and face: Calvarium and facial bones appear intact, without suspicious lesions. Orbits appear normal. Sinuses: Sinuses and mastoids are clear. HEAD CT ANGIOGRAPHY: Anterior circulation: Intracranial internal carotid arteries are normal in size and flow. The flow within the paired anterior cerebral arteries is normal and symmetric. The flow within the middle cerebral arteries is normal and symmetric. The anterior communicating artery is seen. No aneurysms are seen. Posterior circulation: Visualized portions of the vertebral arteries demonstrate normal caliber, and join to form a normal appearing basilar artery. Flow within the posterior cerebral arteries is normal and symmetric. No aneurysms are seen. NECK CT ANGIOGRAPHY: Carotid system: The great vessels demonstrate a conventional anatomy as they arise from the aortic arch. The origins of the common carotid arteries appear patent. The common carotid arteries demonstrate normal caliber and courses. The bifurcation regions are both widely patent. The internal carotid arteries demonstrate normal calibers and courses. Posterior circulation: The origins of the vertebral arteries both appear widely patent. The more superior extracranial portions of both vertebral arteries also demonstrate normal courses and calibers. They join to form a normal appearing basilar artery. Soft tissues: Visualized neck soft tissues demonstrate no suspicious abnormalities. Bones: No suspicious bony lesions. Perched facets and right facet fracture can be seen at C3-C4. Degenerative changes are seen. IMPRESSION: No abnormal intracranial enhancement. No significant abnormality of the intracranial arteries can be seen. No hemodynamically significant stenosis seen involving the arteries of the neck. Perched facets at C3-C4, with associated facet fracture. Please see the recent CT C-spine report. Any quantitative measurements of stenosis were performed using NASCET criteria. Dictated by: Rubén Lyons M.D. on 07/09/2018 at 20:47 Approved by: Rubén Lyons M.D. on 07/09/2018 at 20:51 ECG Data Attestation: I personally reviewed and interpreted this ECG as follows: Prior ECG tracings: not available for review Interpretation: EKG sinus tachycardia rate [address] depression no elevations no T-wave inversions MDM Narrative Medical decision making narrative: Patient's jira developer strength is actually getting better. CT is reviewed C3-C4 fracture. I think that his left arm weakness and strength deficit is actually Neurologic from his neck injury. possible spinal cord or nerve damage from fracture causing weakness. I do not believe this to be stroke at this time. He was no other deficits. I have discussed with Dr. hines ER physician at [facility] happily accepts patient. I have discussed with patient and family ear lift her cyst ground transport. At this time due to neurologic deficits even though improving I do recommend airlift they are agreeable. Unclear what was cause of the syncopal episode. Discharge Plan Departure Patient Disposition: [facility] Clinical Impression: Syncope, C3 cervical fracture, C4 cervical fracture Discharge Date/Time: 07/09/18 22:40 Interventions: ED Discharge Assessment Last Done: 07/09/18 23:03 Prescriptions: No Action bupropion HCl [Wellbutrin XL] 150 MG tablet extended release 24 hr 300 mg PO QDAY Qty: 0 RF: 0 NAPROXEN (NAPROSYN) 250 mg PO Q12H Qty: 0 RF: 0 ACETAMINOPHEN (#TYLENOL) 1,000 mg PO Q4HP Qty: 0 RF: 0 meloxicam 15 MG tablet 15 mg PO QDAY Qty: 0 RF: 0
== END 2018-07-09 22:40 | disposition short-term general hospital (02) ==
LOC: ED 21:20
PROVIDERS: Emergency Medicine; Emergency Provider Emergency Medicine; PCP Physician Assistant Medical
DX: S12.200A Unspecified displaced fracture of third cervical vertebra, initial encounter for closed fracture (principal); S12.300A Unspecified displaced fracture of fourth cervical vertebra, initial encounter for closed fracture; R55 Syncope and collapse; W19.XXXA Unspecified fall, initial encounter
CPT/HCPCS: 36415; 70450; 70496; 70498; 71045; 72125; 80053; 82550; 82553; 82962; 84484; 85025; 85610; 85730; 93005; 93041; 96361; 96374; 96375; 99284; 99291; 99292; G0390; J1170; Q9967

== ENCOUNTER 2018-07-14 22:20 | Emergency (ER) | payer MEDICARE, OTHER, SELFPAY ==
[2018-07-14 22:37] VITALS: BP 145/75; PULSE 88; RESP 16; TEMP 37.2; O2SAT 99; BMI 23.7
--- NOTE | 2018-07-14 23:24 | ED.NECK ---
HPI - Neck Pain/Injury General Chief Complaint: Neck Pain/Injury Stated Complaint: Neck Pain S/P Neck surgery Time Seen by Provider: 07/14/18 23:10 Source: patient Mode of arrival: ambulatory Limitations: no limitations History of Present Illness HPI Narrative: This is a 67-year-old male who comes to the emergency department with complaint of increase in neck pain. Patient had a fall with subsequent fall with cervical fracture and was transported to [facility]. He had surgical fixation of his fracture. This was on Wednesday the patient is continued to have pain in his neck has been minimally to moderately controlled with oxycodone q.6 hours, gabapentin, Tylenol and ibuprofen. Today patient lay down to try to take a nap and this made him much more comfortable. He did sleep but when he woke up he had a lot of pain in his neck and shoulder. Patient states this has been typical when he tries to lay down to sleep. He had oxycodone at 1:00 p.m. and gabapentin at noon. His next dose of medication was Tylenol and ibuprofen at 7:30 p.m. as well as Vicodin at 8:30 p.m. Prior to that patient had been taking oxycodone Q 6 hr. Related Data Home Medications Medication Instructions Recorded Confirmed bupropion HCl [Wellbutrin XL] 300 mg PO QDAY #0 02/01/12 ACETAMINOPHEN (#TYLENOL) 1,000 mg PO Q4HP #0 03/29/13 NAPROXEN (NAPROSYN) 250 mg PO Q12H #0 03/29/13 meloxicam 15 mg PO QDAY #0 08/11/16 Previous Rx's Medication Instructions Recorded meloxicam [Mobic] 7.5 mg PO BID PRN #20 tab 07/15/18 oxycodone 5 mg PO Q4-6H PRN #20 cap 07/15/18 Allergies Allergy/AdvReac Type Severity Reaction Status Date / Time aspirin [ASPIRIN] AdvReac Mild STUFFY Unverified 07/14/18 22:36 NOSE, WATERING EYES Review of Systems Review of Systems All systems reviewed & are unremarkable except as noted in HPI and below Constitutional Denies fever(s) and Denies weakness ENT Ears, Nose, Mouth, and Throat: Reports neck pain Gastrointestinal Gastrointestinal: Denies abdominal pain, Denies change in bowel habits, Denies diarrhea, Denies nausea and Denies vomiting Musculoskeletal Reports neck pain, Denies numbness and Denies tingling Neurologic Denies focal weakness, Denies numbness, Denies sensory deficit, Denies tingling, Denies paresthesias and Denies weakness PFSH Medical History Healthy adult (Acute) Social History Smoking Status: Former smoker Exam Narrative Exam Narrative: GEN: well nourished, well appearing male, alert and oriented x 3, patient appears to be in mild distress. HEENT: Atraumatic, pupils are equal round reactive to light, extraocular movements are intact, Patient has healing incision on his anterior neck that appears clean dry and intact without any signs of infection HEART: Regular rate and rhythm without murmur, clicks, rubs. No carotid bruits, pulses are equal in upper and lower extremities LUNGS:Lungs clear to auscultation, no wheezes, rales, crackles, chest moves symmetrically ABD:bowel sounds normal, soft, non-tender, no guarding, rebound, rigidity, no masses noted, no hepatosplenomegaly MSCL: Non-tender, no muscle atrophy, muscles strength 5/5 upper Extremities, full range of motion, normal gait, patient is sitting up on the edge of bed. NEURO:CN 2-12 intact, sensation normal, reflexes 2/4 upper extremities. Initial Vital Signs Initial Vital Signs: Vital Signs Temperature 99.0 F 07/14/18 22:37 Pulse Rate 88 07/14/18 22:37 Respiratory Rate 16 07/14/18 22:37 Blood Pressure 145/75 H 07/14/18 22:37 Pulse Oximetry 99 07/14/18 22:37 Course Orders Ordered: Discontinued Medications Diazepam (Valium) 10 mg PO NOW ONE Stop: 07/14/18 23:24 Last Admin: 07/14/18 23:35 Dose: 10 mg Hydromorphone HCl (Dilaudid) 1 mg IM NOW ONE Stop: 07/14/18 23:25 Last Admin: 07/14/18 23:35 Dose: 1 mg Reevaluation(s) Reevaluation #1: Pain at 3/10. Plan for patient f/u with pcp and discussion regarding further options for pain control. patient is sitting up on the hand that has normal range of motion. Plan for follow-up with his physicians of the short term. Pre should use the care of [facility] other are comfortable with the plan. Time: 00:11 Vital Signs - 8 hr 07/14/18 22:37 07/15/18 00:03 Temperature 99.0 F Pulse Rate 88 76 Respiratory Rate 16 16 Blood Pressure 145/75 H Blood Pressure [Left Arm] 112/72 Pulse Oximetry 99 96 Discharge Plan Departure Patient Disposition: Home Clinical Impression: Worsening of neck pain following surgery Discharge Date/Time: 07/15/18 00:20 Interventions: ED Discharge Assessment Last Done: 07/15/18 00:20 Instructions: Neck Pain (Alternative Therapy) Activity Restrictions/Additional Instructions: Follow-up tomorrow with your primary care physician for recheck and further discussion about medication for pain control. Return to the emergency department for fevers, new weakness, new numbness or difficulty with movement of your hands or arms. Prescriptions: New meloxicam [Mobic] 7.5 mg tablet 7.5 mg PO BID PRN (Reason: pain) Qty: 20 RF: 0 oxycodone 5 mg capsule 5 mg PO Q4-6H PRN (Reason: pain) Qty: 20 RF: 0 No Action bupropion HCl [Wellbutrin XL] 150 MG tablet extended release 24 hr 300 mg PO QDAY Qty: 0 RF: 0 NAPROXEN (NAPROSYN) 250 mg PO Q12H Qty: 0 RF: 0 ACETAMINOPHEN (#TYLENOL) 1,000 mg PO Q4HP Qty: 0 RF: 0 meloxicam 15 MG tablet 15 mg PO QDAY Qty: 0 RF: 0
[2018-07-14] MEDS: HYDROMORPHONE 2 MG INJ 1 MG IM (23:35)
[2018-07-14] MEDS: diazePAM 5 MG TABLET 10 MG PO (23:35)
[2018-07-15 00:03] VITALS: BP 112/72; PULSE 76; RESP 16; O2SAT 96
== END 2018-07-15 00:20 | disposition home or self-care (01) ==
PROVIDERS: Emergency Provider Emergency Medicine; Family Provider Physician Assistant Medical; PCP Physician Assistant Medical
DX: G89.18 Other acute postprocedural pain (principal); Z98.890 Other specified postprocedural states
CPT/HCPCS: 96372; 99282; 99283; J1170

== ENCOUNTER → 2019-02-08 18:39 | Outpatient (CLI) | payer MEDICARE, OTHER, SELFPAY ==
--- NOTE | 2019-02-08 | DI.MRI.S_ITS ---
PROCEDURE: MR CERVICAL SPINE WO CON INDICATIONS: DISPLACED FRACTURE OF THIRD CERVICAL VERTEBRA TECHNIQUE: Noncontrast sagittal T1 spin echo and T2 fast spin echo, sagittal STIR, foraminal oblique sagittal T2 fast spin echo, and axial gradient echo or T2 fast spin echo through the cervical spine. COMPARISON: [facility], CR, XR CHEST 1V, 07/09/2018, 21:30. [facility], CT, CT CERVICAL SPINE WO CON, 07/09/2018, 20:03. FINDINGS: Image quality: Excellent. Alignment and Curvature: Probable postsurgical susceptibility artifact although this would be better confirmed with radiographs. Trace retrolisthesis of C4 on C5, and C5 on C6. Straightening of the normal cervical lordosis. Bone Marrow: Multilevel degenerative endplate sclerosis and spurring. Diffuse facet arthropathy. Spinal Cord: Visualized spinal cord has normal size and signal. No cerebellar tonsillar herniation. Paraspinous Soft Tissues: No paravertebral masses. Prevertebral soft tissues are normal in thickness. C2-C3: Bilateral uncovertebral arthropathy and posterior intervening disc osteophyte complex, and bilateral facet disease. No definite central canal narrowing. No foraminal stenosis C3-C4: This level partially obscured by hardware artifact. Compromised axial images due to hardware, and cannot at least some degree of left-sided canal narrowing. No definite left foraminal narrowing. Mild right foraminal stenosis. C4-C5: [id number] canal narrowing which is predominantly left-sided. There is mass effect on the cord.. Severe left foraminal narrowing with compression of the nerve root. Moderate right foraminal narrowing with compression of the nerve root. C5-C6: Bilateral uncovertebral arthropathy and posterior intervening disc osteophyte complex, and bilateral facet disease. Moderate canal narrowing is present. Moderate to severe right and severe left foraminal narrowing with commensurate compression of the nerve root. C6-C7: Bilateral uncovertebral arthropathy and posterior intervening disc osteophyte complex, which is asymmetric, left greater than right. Bilateral facet arthropathy. Mild left canal narrowing. No right foraminal stenosis. Minimal left foraminal narrowing C7-T1: Normal appearance. IMPRESSION: Postsurgical changes which partially obscure the upper cervical spine as above. Moderate C4-C5 left-sided canal narrowing as above. There may also be some (lesser) degree of left-sided canal narrowing at C3-C4 however not well evaluated due to hardware artifact. Moderate C5-C6 canal stenosis. Diffuse bilateral foraminal stenoses as detailed above by spinal level. Dictated by: Sonny Angulo M.D. on 02/09/2019 at 9:08 Approved by: Sonny Angulo M.D. on 02/09/2019 at 9:18
== END ==
PROVIDERS: Family Provider Physician Assistant Medical; PCP Physician Assistant Medical; Visit Provider Neurological Surgery
DX: S12.29 Other fracture of third cervical vertebra (principal); M48.02 Spinal stenosis, cervical region
CPT/HCPCS: 72141

== ENCOUNTER 2019-07-07 20:45 | Emergency (ER) | payer MEDICARE, OTHER, SELFPAY ==
[2019-07-07 20:58] VITALS: BP 157/72; PULSE 101; RESP 19; TEMP 36.6; O2SAT 98; BMI 23.7
[2019-07-07 21:00] VITALS: BP 155/68; PULSE 90; RESP 16; O2SAT 98
--- NOTE | 2019-07-07 21:08 | ED.HA ---
HPI - Headache General Chief Complaint: Headache Stated Complaint: WANTS TO PASS OUT PAIN BACK OF HEAD NAUSEA Time Seen by Provider: 07/07/19 21:02 Source: patient Mode of arrival: Wheelchair Limitations: no limitations History of Present Illness HPI Narrative: 68-year-old male here for evaluation of a headache in the back of his head. Patient states that he was at his normal state health until shortly before arrival here in the emergency department when he was sitting at the table drinking some wine and a sudden onset of headache in the back of his head. He does state that he has had prior cervical spine surgery and has a known herniated disc and degenerative disc disease. He states he just saw his spine surgeon yesterday and was ?given a clean bill of health ?he also states that he spent about 5 hours fishing today and after he was fishing had some neck tenderness afterwards but it was nothing as bad as when he came in. No numbness or tingling in his arms or legs. States the headache is worse when he looks down and when he bends his head to the left and right. Does not worse with palpation. Related Data Home Medications Medication Instructions Recorded Confirmed bupropion HCl [Wellbutrin XL] 300 mg PO QDAY #0 02/01/12 ACETAMINOPHEN (#TYLENOL) 1,000 mg PO Q4HP #0 03/29/13 NAPROXEN (NAPROSYN) 250 mg PO Q12H #0 03/29/13 meloxicam 15 mg PO QDAY #0 08/11/16 Previous Rx's Medication Instructions Recorded meloxicam [Mobic] 7.5 mg PO BID PRN #20 tab 07/15/18 oxycodone 5 mg PO Q4-6H PRN #20 cap 07/15/18 Allergies Allergy/AdvReac Type Severity Reaction Status Date / Time aspirin [ASPIRIN] AdvReac Mild STUFFY Unverified 07/14/18 22:36 NOSE, WATERING EYES Review of Systems Constitutional Constitutional: Denies fever(s), Denies frequent falls and Reports headache(s) Eyes Eyes: Denies blurry vision, Denies diplopia and Denies loss of vision ENT Ears, Nose, Mouth, and Throat: Denies vertigo, Denies dizziness, Denies dry mouth, Reports headache(s), Reports neck pain, Denies sinus pressure and Denies sore throat Cardiovascular Cardiovascular: Denies chest pain, Denies palpitations and Denies dyspnea Respiratory Respiratory: Denies cough and Denies dyspnea Gastrointestinal Gastrointestinal: Denies abdominal pain, Denies diarrhea, Denies nausea and Denies vomiting Genitourinary Genitourinary: Denies dysuria Musculoskeletal Musculoskeletal: Denies back pain, Denies myalgias, Denies arthralgias, Reports neck pain and Denies numbness Integumentary/Breasts Skin/Breast: Denies rash Neurologic Neurologic: Denies behavioral changes, Denies burning sensations, Denies confusion, Denies vertigo, Denies dizziness, Denies frequent falls, Reports headache(s), Denies focal weakness, Denies loss of vision, Denies memory loss, Denies numbness and Denies restless legs Psychiatric Psychiatric: Denies anxiety, Denies behavioral changes, Denies confusion and Denies memory loss Endocrine Endocrine: Denies palpitations Hematologic/Lymphatic Hematologic/Lymphatic: Denies easy bleeding and Denies easy bruising Allergic/Immunologic Allergic/Immunologic: Denies urticaria [facility] Medical History Healthy adult (Acute) Social History Smoking Status: Former smoker Social History Smoking Status: Former smoker Exam Initial Vital Signs Initial Vital Signs: Vital Signs Temperature 97.9 F 07/07/19 20:58 Pulse Rate 101 H 07/07/19 20:58 Respiratory Rate 19 07/07/19 20:58 Blood Pressure 157/72 H 07/07/19 20:58 Pulse Oximetry 98 07/07/19 20:58 Const General: cooperative, comfortable, well developed, well groomed and No acute distress Orientation: alert, awake and oriented x3 HENMT Head: normal to inspection and normocephalic Ears: TM's normal bilaterally Nose: external nose normal Face and sinus: normal facial exam Eyes Pupils: PERRL EOM: EOM intact bilaterally Chest Chest: normal inspection of the chest Resp Effort & Inspection: normal respiratory effort Auscultation: clear to auscultation bilaterally Cardio Rate: tachycardic Rhythm: regular rhythm Pulses: radial pulses present GI Inspection: non-distended Palpation: soft Back/Spine/Pelvis Other: Patient without any tenderness to palpation of the cervical spine or occipital region however flexing his neck and side bending left and right does reproduce his symptoms. Skin Lesions: no lesions Rashes: no rashes Neuro General: alert, awake and oriented x3 Cranial Nerves: CN's II-XI intact bilaterally Cognition: normal cognition Speech: speech normal Motor: muscle tone normal throughout Sensory Exam: no sensory deficits noted Extrem General: normal to inspection and capillary refill normal Psych Appearance: grossly normal and well kempt Scores GCS Homer coma scale eye opening: Spontaneous Stacey coma scale verbal response: Orientated Stacey coma scale motor response: Obey commands Stacey coma scale total score: 15 Course Orders Ordered: ED Orders 07/07/19 20:58 Basic Metabolic Panel Stat Complete Blood Count AUTO DIFF Stat Partial Thromboplastin Time Stat Prothrombin Time INR Stat 07/07/19 21:10 CT head/brain wo con Stat Nicardipine HCl 25 mg/ Sodium (Chloride) 250 mls @ 50 mls/hr IV TITRATE CASE; Protocol Discontinued Medications Diazepam (Valium) 5 mg PO NOW ONE Stop: 07/07/19 21:11 Last Admin: 07/07/19 21:21 Dose: 5 mg Documented by: LREED Ketorolac Tromethamine (Toradol) 30 mg IV NOW ONE Stop: 07/07/19 21:11 Last Admin: 07/07/19 21:21 Dose: 30 mg Documented by: LREED Morphine Sulfate (Morphine) 4 mg IV NOW ONE Stop: 07/07/19 22:11 Vital Signs Vital signs: Vital Signs - 8 hr 07/07/19 20:58 07/07/19 21:00 07/07/19 21:30 Temperature 97.9 F Pulse Rate 101 H 90 101 H Respiratory Rate 19 16 18 Blood Pressure 157/72 H Blood Pressure [Left Arm] 155/68 H 157/72 H Pulse Oximetry 98 98 98 MDM - Headache Lab Data Result diagrams: 07/07/19 20:58 07/07/19 20:[address] scan - head: Radiologist's impression: [address] [address] [address] Scan Report Signed Patient: Reynaldo Main [facility]#: [id number] : 3Acct:[id number] Age/Sex: 68 / MDate of Service: 07/07/19 Loc: ED Accession Number: [id number] Procedure: CT head/brain wo con Ordering Provider: Emre Quiroga D.O. PROCEDURE: CT HEAD/BRAIN WO CON INDICATIONS: posterior headache TECHNIQUE: Noncontrast 4.5 mm thick angled axial sections acquired from the foramen magnum to the vertex, with coronal and sagittal reformats. For radiation dose reduction, the following was used: automated exposure control, adjustment of mA and/or kV according to patient size. COMPARISON: [facility], CT, CT CERVICAL SPINE WO CON, 07/09/2018, 20:03. [facility], CT, CT HEAD/BRAIN WO CON, 07/09/2018, 20:03. FINDINGS: Image quality: Excellent. CSF spaces: Basal cisterns are patent. No extra-axial fluid collections. The ventricles are symmetric in size and shape. Brain: There is a prominent amount of extra-axial intracranial hemorrhage seen, which is largely collected within the prepontine cistern and within the basal cisterns. Subarachnoid hemorrhage can be seen involving the central brain posteriorly, which is more prominent on the right side on the left. There is cerebral volume loss for age, with resultant ventricular and sulcal prominence. There are periventricular and deep white matter chronic small vessel ischemic changes. There is intracranial internal carotid artery atherosclerosis. Skull and face: Calvarium and visualized facial bones appear intact, without suspicious lesions. Sinuses: Visualized sinuses and mastoids are clear. IMPRESSION: A prominent amount of intracranial hemorrhage is seen. This pattern almost certainly represents rupture of aneurysm involving the [place]. Note: Case discussed by telephone with Dr. Quiroga at 9:45 PM on July 07, 2019. Dictated by: Rubén Lyons M.D. on 07/07/2019 at 21:42 Approved by: Rubén Lyons M.D. on 07/07/2019 at 21:46 MDM Narrative Medical decision making narrative: Initial evaluation it was suspicious for musculoskeletal etiology given the fact that his symptoms were reproducible with flexing and side bending his head. He was given Valium and Toradol. This did little to improve any of his symptoms. The CT scan did show a subarachnoid hemorrhage. This was nontraumatic. Although no IV contrast was used there is suspicious for an aneurysm. Patient at 1 point did complain of tingling in his right lower extremity but this seems of resolved. Arrival blood pressure was 150 use over 70s. I did discuss the case with emergency medicine physician at [facility] who accepts the patient. Will send by airlift. Nicardipine was started with a goal systolic blood pressure less than 140 and ideally systolic blood pressure around 120. Patient was informed of his diagnosis and the need for transport. He expressed understanding. Patient is stable for transport. Critical Care Time Critical Care Time Critical Care Time: Yes Total Critical Care Time: 35 Attestation: The high probability of a clinically significant, sudden or life threatening deterioration of the neurologic system(s) required my full and direct attention, intervention and personal management. The aggregate critical care time was 35 minutes. This time is in addition to time spent performing reported procedures but includes the following: [] Data Review and interpretation [] Patient assessment and monitoring of vital signs [] Documentation [] Medication orders and management Discharge Plan Departure Patient Disposition: [facility] Clinical Impression: Subarachnoid hemorrhage Prescriptions: No Action bupropion HCl [Wellbutrin XL] 150 MG tablet extended release 24 hr 300 mg PO QDAY Qty: 0 RF: 0 NAPROXEN (NAPROSYN) 250 mg PO Q12H Qty: 0 RF: 0 ACETAMINOPHEN (#TYLENOL) 1,000 mg PO Q4HP Qty: 0 RF: 0 meloxicam 15 MG tablet 15 mg PO QDAY Qty: 0 RF: 0 meloxicam [Mobic] 7.5 mg tablet 7.5 mg PO BID PRN (Reason: pain) Qty: 20 RF: 0 oxycodone 5 mg capsule 5 mg PO Q4-6H PRN (Reason: pain) Qty: 20 RF: 0 Referrals: Uma Amaro PA-C [Primary Care Provider] -
[2019-07-07] MEDS: KETOROLAC 60 MG/2 ML VIAL 30 MG IV (21:21)
[2019-07-07] MEDS: diazePAM 5 MG TABLET PO (21:21)
[2019-07-07 21:30] VITALS: BP 157/72; PULSE 101; RESP 18; O2SAT 98
[2019-07-07 22:13] VITALS: BP 150/81; PULSE 81; RESP 18; O2SAT 98
[2019-07-07 22:14] LABS: Add Manual Diff / Slide Review NO; Basophils Absolute Auto 0 /uL (0-100); Basophils Percent Auto 0.5 % (0-2); Eosinophils Absolute Auto 200 /uL (0-450); Eosinophils Percent Auto 2.6 % (2-4); Hematocrit 42.8 % (41-53); Hemoglobin 14.7 g/dL (13.5-17.5); Lymphocytes Absolute Auto 2900 /uL (1100-4500); Lymphocytes Percent Auto 38.6 % (25-40); Mean Corpuscular HGB Conc 34.3 % (30-36); Mean Corpuscular Hemoglobin 31.7 PG (26-34); Mean Corpuscular Volume 92.4 fL (80-100); Monocytes Absolute Auto 1100 /uL (0-900); Neutrophils Absolute Auto 3200 /uL (1500-7000); Neutrophils Percent Auto 43.3 % (50-75); Platelet Count 217 X10^3/uL (150-400); Red Blood Cell Count 4.63 X10^6/uL (4.5-5.9); Red Cell Distribution Width 12.9 % (11.6-14.8); White Blood Cell Count 7.5 X10^3/uL (4.5-11.0)
[2019-07-07 22:15] LABS: Prothrombin Time 10.9 SECONDS (10.1-12.7)
[2019-07-07 22:18] LABS: PTT Partial Thromboplastin Tim 30 SECONDS (26.4-36.2)
[2019-07-07 22:20] LABS: Blood Urea Nitrogen 26 mg/dL (9-20); Carbon Dioxide 27 mmol/L (22-32); Chloride 102 mmol/L (98-107); Estimated Glomerular Filt Rate > 60.0 mL/min (>60); Glucose 118 mg/dL (80-110); HEMOLYSIS 16 (0-50); Potassium 3.7 mmol/L (3.4-5.1); Sodium 139 mmol/L (137-145)
[2019-07-07] MEDS: MORPHINE 4 MG/ML INJ IV (22:39)
[2019-07-07] MEDS: NICARDIPINE 25 MG in SODIUM CHLORIDE 0.9% 240 ML 50 ML IV (22:39)
[2019-07-07] MEDS: ONDANSETRON 4 MG/2 ML INJ IV (23:01)
[2019-07-07 23:02] VITALS: BP 149/63; PULSE 74; RESP 16; O2SAT 99
== END 2019-07-07 23:00 | disposition short-term general hospital (02) ==
PROVIDERS: Emergency Provider Emergency Medicine; Family Provider Physician Assistant Medical; PCP Physician Assistant Medical
DX: I60.9 Nontraumatic subarachnoid hemorrhage, unspecified (principal)
CPT/HCPCS: 36591; 70450; 80048; 85025; 85610; 85730; 96365; 96375; 99283; 99284; J1885; J2270; J2405

== ENCOUNTER → 2019-09-18 09:50 | Outpatient (CLI) | payer MEDICARE, OTHER, SELFPAY ==
[2019-09-20 14:01] LABS: PSA Free % 13 % (calc) (> 25); PSA, Total 1.5 ng/mL (< 4.1)
== END ==
PROVIDERS: PCP Family Medicine; Visit Provider Physician Assistant
DX: R97.20 Elevated prostate specific antigen [PSA] (principal)
CPT/HCPCS: 36415; 84153; 84154

== ENCOUNTER 2019-09-26 09:00 | Outpatient (RCR) | payer MEDICARE, OTHER, SELFPAY ==
--- NOTE | 2019-08-10 12:24 | PT.OIE ---
Current Diagnoses Cerebral infarction, unspecified (08/10/19) Past Medical History (Last Reviewed 07/07/19 @ 22:14 by Emre Quiroga DO) Healthy adult (Acute) Visit Care Team Role Provider Type Lobito Lara MD Attending Provider Non-Staff Primary Care Provider Specialty: Family Practice Address: [address] [place] [address], [address], [place], [address] Email: Physical Therapy Initial Evaluation PT-OP-A Visit Information Start: 08/10/19 08:12 Freq: Status: Active Protocol: Document 08/10/19 10:35 HH (Rec: 08/10/19 12:09 [id number]) Out-Patient Physical Therapy Visit Information Visit Information Visit Type Initial Evaluation Visit Note co-tx with SPT Lara Visit Start Time 10:35 Visit Stop Time 11:15 Total Visit Minutes 40 Visit Number 11/05 Number of [employer] MA[employer]GER Visits 0 Evaluation Information Evaluation Date 08/10/19 Precautions Precautions no heavy lifting >5lbs until cleared by neurosurgeon in August No sports, twisting, pulling, bending or operating heavy machinery until cleared by neurosurgeon PT-OP-B Current Condition Start: 08/10/19 08:12 Freq: Status: Active Protocol: Document 08/10/19 10:35 HH (Rec: 08/10/19 12:09 [id number]) Current Condition History of Current Condition Onset Date 07/07/19 Current Complaints s/p minor CVA, decreased balance, strength and difficulty in walking History of Current Condition Pt is a 68 yo male who was admitted to ER at [facility] due to worst headache at the base of his head on , along wit nausea and vomiting. CT revealed acute diffuse subarachnoid hemorrhage. Pt said he was recovered quick from hospitalization until today. His primary c/o was decreased balance, strength and difficulty in walking. He used walker at first and progressed to be an independent ambulator. He also has c/o constant tightness at back of his head and frontal part and B hamstrings. Pt stated he is very high functional at this point and no much of deficits but want to see if participating PT will discover any deficits. Pt currently follows post CVA restrictions with no heavy lifting >5lbs, No sports, twisting, pulling, bending or operating heavy machinery until cleared by neurosurgeon. hamstring tightness, headache Prior Treatments and Tests PMH- C3-4 fx s/p C3-4 anterior cervical diskectomy and fusion in jun 2018 Future Testing and Treatments Planned Pt will see neurosurgeon in Aug. Treatment Goals Patient/Caregiver Goals 1. To improve his overall balance 2. To improve his posterior chain flexibility 3. To strengthen B LEs Prior Functional Status Baseline Function- ADL's Independent Baseline Function- Mobility Independent Baseline Function- Other Patient reports full independence prior to SAH. Current Functional Impairments (Reported) Functional Limitations- ADL's Pt reports independent with ADLs Functional Limitations- Mobility/Gait Pt reports requiring walker for mobility and ambulation initially after d/c from hospital but was then able to transition to a cane and then to no AD for short distance ambulation. Pt reports a limitation in the distance he can ambulate. Functional Limitations- Work/School Pt is retired. Functional Limitations- Other Limitations in IADLs and recreational activities d/t cont lifting and bending/ twisting restrictions. Pt notes that he still needs to use hand rails for stairs d/t feeling weak and off balance. Personal Factors Other Personal Factors That May Effect previous cervical sx 1 year Therapy/Recovery ago. PT-OP-C Subjective Start: 08/10/19 08:12 Freq: Status: Active Protocol: Document 08/10/19 10:35 (Rec: 08/10/19 12:09 [id number]) OP-PT Subjective Patient Comments Patient Comments I would like to get stronger and be able to return to my regular activities OP-PT Pain Assessment Location B hamstrings Intensity 4 Scale Used Numeric (1 - 10) Description Pulling Frequency Frequent Pain Aggravating Factors Sitting upper back Intensity 4 Scale Used Numeric (1 - 10) Description Aching,Dull Frequency Frequent Pain Aggravating Factors Activity,Exercise Pain Alleviating Factors Inactivity PT-OP-D Balance Start: 08/10/19 08:12 Freq: Status: Active Protocol: Document 08/10/19 10:35 (Rec: 08/10/19 12:09 [id number]) OP-PT Balance Assessment Sitting Balance Static Sitting Balance Ability Normal Dynamic Sitting Balance Ability Good Standing Balance Static Standing Balance Ability Good Dynamic Standing Balance Ability Fair Balance Tests Single Limb Standing Single Limb- Right 33 Single Limb- Left 7 Other Other Balance Tests Performed excessive lateral hip sway while standing on LLE Garcia Fall Scale Copyright Permission PT-OP-H Neuro Start: 08/10/19 08:12 Freq: Status: Active Protocol: Document 08/10/19 10:35 (Rec: 08/10/19 12:09 [id number]) Sensation Evaluation Gross Sensation Gross Sensation WNL Coordination Evaluation Upper Extremity Tests Right Finger to Nose Test Normal Performance Finger to Therapist's Finger Test Minimal Impairment Pronation/Supination Test Normal Performance Left Finger to Nose Test Minimal Impairment Finger to Therapist's Finger Test Minimal Impairment Pronation/Supination Test Normal Performance Lower Extremity Tests Right Alternate Heel to Knee; Heel to Toe Test Normal Performance Heel on Magdaleno Test Normal Performance Foot Tapping Test Normal Performance Left Alternate Heel to Knee; Heel to Toe Test Normal Performance Heel on Magdaleno Test Minimal Impairment Foot Tapping Test Normal Performance Deep Tendon Reflex & Clonus Assessment Deep Tendon Reflex Bilateral Achilles Deep Tendon Reflex 2+ Normal Bilateral Patellar Deep Tendon Reflex 2+ Normal Ankle Clonus Bilateral Clonus Assessment Absent PT-OP-L Special Tests Start: 08/10/19 08:12 Freq: Status: Active Protocol: Document 08/10/19 10:35 (Rec: 08/10/19 12:09 [id number]) Special Tests Neural Special Tests- Lower Body SLR Test Results B + sx reproduction, (-) sensitization Other Special Tests Special Tests single leg squat R= 22 inches L= 25 inches Hamstring length 90/90 test: B 45/90 with + sx reproduction PT-OP-M Strength Start: 08/10/19 08:12 Freq: Status: Active Protocol: Document 08/10/19 10:35 (Rec: 08/10/19 12:09 [id number]) Elbow/Forearm Strength Elbow and Forearm Manual Muscle Testing Right Flexion (C6) 4 Good Extension (C7) 4 Good Left Flexion (C6) 5 Normal Extension (C7) 5 Normal Wrist Strength Wrist Manual Muscle Testing Right Flexion (C7) 4 Good Extension (C6) 4 Good Left Flexion (C7) 5 Normal Extension (C6) 5 Normal Hip Strength Hip Manual Muscle Testing Right Flexion (L2) 4 Good Extension (S1) 5 Normal Abduction 5 Normal Adduction 5 Normal Left Flexion (L2) 4- Good- Extension (S1) 4+ Good+ Abduction 4 Good Adduction 4 Good Knee Strength Knee Manual Muscle Testing Left Flexion (S2) 5 Normal Extension (L3) 5 Normal Right Flexion (S2) 5 Normal Extension (L3) 5 Normal PT-OP-Q Treatments Start: 08/10/19 08:12 Freq: Status: Active Protocol: Document 08/10/19 10:35 HH (Rec: 08/10/19 12:09 [id number]) Therapeutic Exercises Supine Exercises bridging Side bilateral Comments cues on posterior chain hamstring dynamic stretch Supine Exercise Name HEP: hip at 90 flexion with knee extension Side bilateral Comments UE support thigh Sitting Exercises single leg squat from chair Sitting Exercise Name from 22-25 inches table Side bilateral PT-OP-T Assessment and Plan Start: 08/10/19 08:12 Freq: Status: Active Protocol: Document 08/10/19 10:35 HH (Rec: 08/10/19 12:09 [id number]) Physical Therapy Assessment Rehab Potential Rehabilitation Potential Excellent Evaluation Complexity Number of Personal Factors/Comorbidities 1-2 Number of Body Systems Impaired 1-2 Clinical Presentation at Evaluation Stable Impairments Impairments Activity Tolerance,Balance, Coordination,Functional Activities,Functional Mobility ,Gait,ROM,Soft Tissue Mobility ,Strength Goals Single leg squat Impairment Pt has impaired strength in LEs L>R Short Term Goal (STG) Pt will be able to complete SLS from 22 surface bilaterally STG Duration 4 weeks Therapy Assistant Goal (LTG) Pt will be able to complete SLS from 20 surface B to improve safety with stair climbing. LTG Duration 8 weeks Single leg balance Impairment Pt has limited ability to balance single leg L>R Short Term Goal (STG) Pt will be able to balance for 40 sec on R leg and 20 sec on L without handhold support. STG Duration 4 weeks Therapy Assistant Goal (LTG) Pt will be able to balance for 45 sec on each leg without handhold support to improve safety with mobility and ambulation. LTG Duration 8 weeks Hamstring tension Impairment Pt complains of tension and radiating pain into hamstrings Short Term Goal (STG) Pt will be able to achieve full knee extension in slump position and perform hip hinge without reporting hamstring tension. STG Duration 4 weeks Therapy Assistant Goal (LTG) Pt will be able to complete ADLs with reports of <3/10 hamstring tension to improve tolerance for regular activities. LTG Duration 8 weeks HEP Impairment Pt does not have HEP Penitentiary Goal (LTG) Pt will demonstrate HEP safely and independently to improve functional mobility and return to regular recreational activities. LTG Duration 8 weeks Assessment Summary Assessment Pt is a 68 yo male presenting to PT 1 month s/p SAH with complaints of limited activity tolerance and cont feeling of unsteadiness with ambulation and stair climbing. Upon assessment, pt demonstrates mild dysmetria and coordination deficits L>R. Pt also demonstrates LE strength, endurance, and balance deficits L>R. Pt also complains of tension/radiating pain in hamstrings that was provoked with a slump test and hamstring 90/90 test likely driven by neural tension and shortened hamstring length. Pt appears to have mild cont deficits from SAH and prolonged hospital stay, but will benefit from skilled therapy to improve L>R LE strength and balance and improve tolerance for functional activities. Physical Therapy Plan Frequency and Duration Frequency of Treatment 2x/Week Duration of Treatment 8 weeks Plan of Care Start Date 08/10/19 Plan of Care End Date 10/05/19 Therapeutic Interventions Therapeutic Interventions Balance Training,Gait Training ,Home Exercise Program,Manual Therapy,Neuromuscular Re- education,Patient/Caregiver Education,Self-Care/Home Management,Therapeutic Activities,Therapeutic Exercises Next Visit Focus/Plan Next Note Type Treatment Note Next Visit Plan Review HEP check 6 min walk test, DGI Progress SLS strengthening, balance exercises Gait training with high knees, step up/down, sit to stand
--- NOTE | 2019-08-14 15:25 | PT.OTN ---
Current Diagnoses Cerebral infarction, unspecified (08/14/19) Physical Therapy Treatment Note PT-OP-A Visit Information Start: 08/10/19 08:12 Freq: Status: Active Protocol: Document 08/14/19 15:25 SP (Rec: 08/14/19 15:49 SP [email or web address]) Out-Patient Physical Therapy Visit Information Visit Information Visit Type Treatment Note Visit Start Time 14:30 Visit Stop Time 15:25 Total Visit Minutes 55 PT-OP-B Current Condition Start: 08/10/19 08:12 Freq: Status: Active Protocol: Document 08/10/19 10:35 HH (Rec: 08/10/19 12:09 HH [id number]) Current Condition History of Current Condition Onset Date 07/07/19 Current Complaints s/p minor CVA, decreased balance, strength and difficulty in walking History of Current Condition Pt is a 68 yo male who was admitted to ER at [facility] due to worst headache at the base of his head on , along wit nausea and vomiting. CT revealed acute diffuse subarachnoid hemorrhage. Pt said he was recovered quick from hospitalization until today. His primary c/o was decreased balance, strength and difficulty in walking. He used walker at first and progressed to be an independent ambulator. He also has c/o constant tightness at back of his head and frontal part and B hamstrings. Pt stated he is very high functional at this point and no much of deficits but want to see if participating PT will discover any deficits. Pt currently follows post CVA restrictions with no heavy lifting >5lbs, No sports, twisting, pulling, bending or operating heavy machinery until cleared by neurosurgeon. hamstring tightness, headache Prior Treatments and Tests PMH- C3-4 fx s/p C3-4 anterior cervical diskectomy and fusion in jun 2018 Future Testing and Treatments Planned Pt will see neurosurgeon in Nov. Treatment Goals Patient/Caregiver Goals 1. To improve his overall balance 2. To improve his posterior chain flexibility 3. To strengthen B LEs Prior Functional Status Baseline Function- ADL's Independent Baseline Function- Mobility Independent Baseline Function- Other Patient reports full independence prior to SAH. Current Functional Impairments (Reported) Functional Limitations- ADL's Pt reports independent with ADLs Functional Limitations- Mobility/Gait Pt reports requiring walker for mobility and ambulation initially after d/c from hospital but was then able to transition to a cane and then to no AD for short distance ambulation. Pt reports a limitation in the distance he can ambulate. Functional Limitations- Work/School Pt is retired. Functional Limitations- Other Limitations in IADLs and recreational activities d/t cont lifting and bending/ twisting restrictions. Pt notes that he still needs to use hand rails for stairs d/t feeling weak and off balance. Personal Factors Other Personal Factors That May Effect previous cervical sx 1 year Therapy/Recovery ago. PT-OP-C Subjective Start: 08/10/19 08:12 Freq: Status: Active Protocol: Document 08/14/19 15:25 SP (Rec: 08/14/19 15:49 SP [email or web address]) OP-PT Subjective Patient Comments Patient Comments I would like to get stronger, my legs feel heavier and balance not as good as use to be. PT-OP-D Balance Start: 08/10/19 08:12 Freq: Status: Active Protocol: Document 08/10/19 10:35 HH (Rec: 08/10/19 12:09 [id number]) OP-PT Balance Assessment Sitting Balance Static Sitting Balance Ability Normal Dynamic Sitting Balance Ability Good Standing Balance Static Standing Balance Ability Good Dynamic Standing Balance Ability Fair Balance Tests Single Limb Standing Single Limb- Right 33 Single Limb- Left 7 Other Other Balance Tests Performed excessive lateral hip sway while standing on LLE Garcia Fall Scale Copyright Permission PT-OP-E Functional Tests Start: 08/10/19 08:12 Freq: Status: Active Protocol: Document 08/14/19 15:25 SP (Rec: 08/14/19 15:49 SP [email or web address]) Functional Tests 6 Minute Walk Test Distance 1292 Device Used 0 Comments slight wt shift x1 to R wide turning 1 corner no LOB Dynamic Gait Index (DGI) Score 23/24 DGI Impairment Rating 1 to <20% Impaired (Score 20- 23) Functional Gait Assessment Score 25/30 Functional Gait Assessment Impairment 1 to <20% Impaired (Score 25- Rating 29) PT-OP-H Neuro Start: 08/10/19 08:12 Freq: Status: Active Protocol: Document 08/10/19 10:35 HH (Rec: 08/10/19 12:09 [id number]) Sensation Evaluation Gross Sensation Gross Sensation WNL Coordination Evaluation Upper Extremity Tests Right Finger to Nose Test Normal Performance Finger to Therapist's Finger Test Minimal Impairment Pronation/Supination Test Normal Performance Left Finger to Nose Test Minimal Impairment Finger to Therapist's Finger Test Minimal Impairment Pronation/Supination Test Normal Performance Lower Extremity Tests Right Alternate Heel to Knee; Heel to Toe Test Normal Performance Heel on Magdaleno Test Normal Performance Foot Tapping Test Normal Performance Left Alternate Heel to Knee; Heel to Toe Test Normal Performance Heel on Magdaleno Test Minimal Impairment Foot Tapping Test Normal Performance Deep Tendon Reflex & Clonus Assessment Deep Tendon Reflex Bilateral Achilles Deep Tendon Reflex 2+ Normal Bilateral Patellar Deep Tendon Reflex 2+ Normal Ankle Clonus Bilateral Clonus Assessment Absent PT-OP-L Special Tests Start: 08/10/19 08:12 Freq: Status: Active Protocol: Document 08/10/19 10:35 HH (Rec: 08/10/19 12:09 HH [id number]) Special Tests Neural Special Tests- Lower Body SLR Test Results B + sx reproduction, (-) sensitization Other Special Tests Special Tests single leg squat R= 22 inches L= 25 inches Hamstring length 90/90 test: B 45/90 with + sx reproduction PT-OP-M Strength Start: 08/10/19 08:12 Freq: Status: Active Protocol: Document 08/10/19 10:35 HH (Rec: 08/10/19 12:09 [id number]) Elbow/Forearm Strength Elbow and Forearm Manual Muscle Testing Right Flexion (C6) 4 Good Extension (C7) 4 Good Left Flexion (C6) 5 Normal Extension (C7) 5 Normal Wrist Strength Wrist Manual Muscle Testing Right Flexion (C7) 4 Good Extension (C6) 4 Good Left Flexion (C7) 5 Normal Extension (C6) 5 Normal Hip Strength Hip Manual Muscle Testing Right Flexion (L2) 4 Good Extension (S1) 5 Normal Abduction 5 Normal Adduction 5 Normal Left Flexion (L2) 4- Good- Extension (S1) 4+ Good+ Abduction 4 Good Adduction 4 Good Knee Strength Knee Manual Muscle Testing Left Flexion (S2) 5 Normal Extension (L3) 5 Normal Right Flexion (S2) 5 Normal Extension (L3) 5 Normal PT-OP-Q Treatments Start: 08/10/19 08:12 Freq: Status: Active Protocol: Document 08/14/19 15:25 SP (Rec: 08/14/19 15:49 SP [email or web address]) Therapeutic Exercises Supine Exercises sciatic nerve floss Reps/Minutes x10 Comments UE support thigh, head and toe same direction, no noted benefit/worsening bridging Side bilateral Reps/Minutes x10 HEP review Comments cues on posterior chain hamstring dynamic stretch Supine Exercise Name HEP: hip at 90 flexion with knee extension Side bilateral Reps/Minutes x10 HEP review Comments UE support thigh, cued slow transition in/out stretch Sitting Exercises glut stretch Sitting Exercise Name ER/IR Side bilateral Reps/Minutes 30 x2-3 Comments Leg cross over opposite knee, rest position then toward floor, then opp shd trunk LB stretch Sitting Exercise Name hip hinge toward between feet Reps/Minutes x10 Comments cued open up hip HS stretch Side bilateral Reps/Minutes 30 x2 Standing Exercises Single leg stance Side bilateral Reps/Minutes 30 x 3 Comments contact support as needed, level pelvis eccentric step down Side bilateral Equipment Used 4 step Reps/Minutes 3x10 Comments midfoot/heel press, posterior chain emphasis activation, knee alignment Manual Therapy Treatment Soft Tissue Mobilization HS roll Body Location HS liliya Mobilization Type Rolling Intensity/Depth Moderate Body Position Sitting Comments stick/foam roll HS PT-OP-T Assessment and Plan Start: 08/10/19 08:12 Freq: Status: Active Protocol: Document 08/14/19 15:25 SP (Rec: 08/14/19 15:49 SP [email or web address]) Physical Therapy Assessment Assessment Summary Assessment Tx focused on flexibility, review HEP cued for proper form slow control, DGI/FGA/ 6MWT assessment for baseline. Pt scored 1<20% risk for falls . No adverse reactions to new introduced to glut step downs/ SLS or stretch/rolling. Physical Therapy Plan Frequency and Duration Frequency of Treatment 2x/Week Duration of Treatment 8 weeks Plan of Care Start Date 08/10/19 Plan of Care End Date 10/05/19 Therapeutic Interventions Therapeutic Interventions Balance Training,Gait Training ,Home Exercise Program,Manual Therapy,Neuromuscular Re- education,Patient/Caregiver Education,Self-Care/Home Management,Therapeutic Activities,Therapeutic Exercises Next Visit Focus/Plan Next Note Type Treatment Note Next Visit Plan Review HEP Progress SLS strengthening, balance exercises Gait training with high knees, step up/down, sit to stand
--- NOTE | 2019-08-17 13:52 | PT.OTN ---
Current Diagnoses Cerebral infarction, unspecified (08/17/19) Physical Therapy Treatment Note PT-OP-A Visit Information Start: 08/10/19 08:12 Freq: Status: Active Protocol: Document 08/17/19 13:02 HH (Rec: 08/17/19 13:51 HH [id number]) Out-Patient Physical Therapy Visit Information Visit Information Visit Type Treatment Note Visit Start Time 13:02 Visit Stop Time 13:45 Total Visit Minutes 43 Visit Number 01/03 Number of SENIOR UI WEB DEVELOPER Visits 0 PT-OP-B Current Condition Start: 08/10/19 08:12 Freq: Status: Active Protocol: Document 08/10/19 10:35 HH (Rec: 08/10/19 12:09 [id number]) Current Condition History of Current Condition Onset Date 07/07/19 Current Complaints s/p minor CVA, decreased balance, strength and difficulty in walking History of Current Condition Pt is a 68 yo male who was admitted to ER at [facility] due to worst headache at the base of his head on , along wit nausea and vomiting. CT revealed acute diffuse subarachnoid hemorrhage. Pt said he was recovered quick from hospitalization until today. His primary c/o was decreased balance, strength and difficulty in walking. He used walker at first and progressed to be an independent ambulator. He also has c/o constant tightness at back of his head and frontal part and B hamstrings. Pt stated he is very high functional at this point and no much of deficits but want to see if participating PT will discover any deficits. Pt currently follows post CVA restrictions with no heavy lifting >5lbs, No sports, twisting, pulling, bending or operating heavy machinery until cleared by neurosurgeon. hamstring tightness, headache Prior Treatments and Tests PMH- C3-4 fx s/p C3-4 anterior cervical diskectomy and fusion in jun 2018 Future Testing and Treatments Planned Pt will see neurosurgeon in Nov. Treatment Goals Patient/Caregiver Goals 1. To improve his overall balance 2. To improve his posterior chain flexibility 3. To strengthen B LEs Prior Functional Status Baseline Function- ADL's Independent Baseline Function- Mobility Independent Baseline Function- Other Patient reports full independence prior to SAH. Current Functional Impairments (Reported) Functional Limitations- ADL's Pt reports independent with ADLs Functional Limitations- Mobility/Gait Pt reports requiring walker for mobility and ambulation initially after d/c from hospital but was then able to transition to a cane and then to no AD for short distance ambulation. Pt reports a limitation in the distance he can ambulate. Functional Limitations- Work/School Pt is retired. Functional Limitations- Other Limitations in IADLs and recreational activities d/t cont lifting and bending/ twisting restrictions. Pt notes that he still needs to use hand rails for stairs d/t feeling weak and off balance. Personal Factors Other Personal Factors That May Effect previous cervical sx 1 year Therapy/Recovery ago. PT-OP-C Subjective Start: 08/10/19 08:12 Freq: Status: Active Protocol: Document 08/17/19 13:02 HH (Rec: 08/17/19 13:51 HH [id number]) OP-PT Subjective Patient Comments Patient Comments I had severe back pain last night after i did my exercise. I was wondering that if we should be careful since my neurosurgeon said no BLT until i see him. I had to take oxycodone last night and today which is uncommon for me since karlos off from that for 10 days. I do feel my hamstrings are getting more flexible PT-OP-D Balance Start: 08/10/19 08:12 Freq: Status: Active Protocol: Document 08/10/19 10:35 HH (Rec: 08/10/19 12:09 [id number]) OP-PT Balance Assessment Sitting Balance Static Sitting Balance Ability Normal Dynamic Sitting Balance Ability Good Standing Balance Static Standing Balance Ability Good Dynamic Standing Balance Ability Fair Balance Tests Single Limb Standing Single Limb- Right 33 Single Limb- Left 7 Other Other Balance Tests Performed excessive lateral hip sway while standing on LLE Garcia Fall Scale Copyright Permission PT-OP-E Functional Tests Start: 08/10/19 08:12 Freq: Status: Active Protocol: Document 08/14/19 15:25 SP (Rec: 08/14/19 15:49 SP [email or web address]) Functional Tests 6 Minute Walk Test Distance 1292 Device Used 0 Comments slight wt shift x1 to R wide turning 1 corner no LOB Dynamic Gait Index (DGI) Score 23/24 DGI Impairment Rating 1 to <20% Impaired (Score 20- 23) Functional Gait Assessment Score 25/30 Functional Gait Assessment Impairment 1 to <20% Impaired (Score 25- Rating 29) PT-OP-H Neuro Start: 08/10/19 08:12 Freq: Status: Active Protocol: Document 08/10/19 10:35 (Rec: 08/10/19 12:09 [id number]) Sensation Evaluation Gross Sensation Gross Sensation WNL Coordination Evaluation Upper Extremity Tests Right Finger to Nose Test Normal Performance Finger to Therapist's Finger Test Minimal Impairment Pronation/Supination Test Normal Performance Left Finger to Nose Test Minimal Impairment Finger to Therapist's Finger Test Minimal Impairment Pronation/Supination Test Normal Performance Lower Extremity Tests Right Alternate Heel to Knee; Heel to Toe Test Normal Performance Heel on Magdaleno Test Normal Performance Foot Tapping Test Normal Performance Left Alternate Heel to Knee; Heel to Toe Test Normal Performance Heel on Magdaleno Test Minimal Impairment Foot Tapping Test Normal Performance Deep Tendon Reflex & Clonus Assessment Deep Tendon Reflex Bilateral Achilles Deep Tendon Reflex 2+ Normal Bilateral Patellar Deep Tendon Reflex 2+ Normal Ankle Clonus Bilateral Clonus Assessment Absent PT-OP-L Special Tests Start: 08/10/19 08:12 Freq: Status: Active Protocol: Document 08/10/19 10:35 (Rec: 08/10/19 12:09 [id number]) Special Tests Neural Special Tests- Lower Body SLR Test Results B + sx reproduction, (-) sensitization Other Special Tests Special Tests single leg squat R= 22 inches L= 25 inches Hamstring length 90/90 test: B 45/90 with + sx reproduction PT-OP-M Strength Start: 08/10/19 08:12 Freq: Status: Active Protocol: Document 08/10/19 10:35 (Rec: 08/10/19 12:09 [id number]) Elbow/Forearm Strength Elbow and Forearm Manual Muscle Testing Right Flexion (C6) 4 Good Extension (C7) 4 Good Left Flexion (C6) 5 Normal Extension (C7) 5 Normal Wrist Strength Wrist Manual Muscle Testing Right Flexion (C7) 4 Good Extension (C6) 4 Good Left Flexion (C7) 5 Normal Extension (C6) 5 Normal Hip Strength Hip Manual Muscle Testing Right Flexion (L2) 4 Good Extension (S1) 5 Normal Abduction 5 Normal Adduction 5 Normal Left Flexion (L2) 4- Good- Extension (S1) 4+ Good+ Abduction 4 Good Adduction 4 Good Knee Strength Knee Manual Muscle Testing Left Flexion (S2) 5 Normal Extension (L3) 5 Normal Right Flexion (S2) 5 Normal Extension (L3) 5 Normal PT-OP-Q Treatments Start: 08/10/19 08:12 Freq: Status: Active Protocol: Document 08/17/19 13:02 (Rec: 08/17/19 13:51 [id number]) Therapeutic Exercises Sitting Exercises seated nerve floss Sitting Exercise Name HS flexibility and sciatic nerve glide Side bilateral Standing Exercises standing tennis ball relase Standing Exercise Name at L thoracic paraspinals Side left Comments self release Single leg stance Side bilateral Reps/Minutes 30 x 3 Comments contact support as needed, level pelvis Other Exercises birddog Side bilateral Reps/Minutes 5 x 3 Comments isolated arm lift/ isolated hip extension Therapeutic Activity Therapeutic Activity bed rolling Comments use of log roll and LLE to push off during rolling to minimize low back involvment. Manual Therapy Treatment Soft Tissue Mobilization L paraspinals Body Location T10 region and QL Mobilization Type Sustained Pressure,Trigger Point Release Intensity/Depth Moderate Body Position Sidelying Comments with UE abduction PT-OP-T Assessment and Plan Start: 08/10/19 08:12 Freq: Status: Active Protocol: Document 08/17/19 13:02 (Rec: 08/17/19 13:51 [id number]) Physical Therapy Assessment Goals Single leg squat Impairment Pt has impaired strength in LEs L>R Short Term Goal (STG) Pt will be able to complete SLS from 22 surface bilaterally STG Duration 4 weeks Senior Living Goal (LTG) Pt will be able to complete SLS from 20 surface B to improve safety with stair climbing. LTG Duration 8 weeks Single leg balance Impairment Pt has limited ability to balance single leg L>R Short Term Goal (STG) Pt will be able to balance for 40 sec on R leg and 20 sec on L without handhold support. STG Duration 4 weeks Senior Living Goal (LTG) Pt will be able to balance for 45 sec on each leg without handhold support to improve safety with mobility and ambulation. LTG Duration 8 weeks Hamstring tension Impairment Pt complains of tension and radiating pain into hamstrings Short Term Goal (STG) Pt will be able to achieve full knee extension in slump position and perform hip hinge without reporting hamstring tension. STG Duration 4 weeks Childcare Center Director Goal (LTG) Pt will be able to complete ADLs with reports of <3/10 hamstring tension to improve tolerance for regular activities. LTG Duration 8 weeks HEP Impairment Pt does not have HEP Senior Living Goal (LTG) Pt will demonstrate HEP safely and independently to improve functional mobility and return to regular recreational activities. LTG Duration 8 weeks Assessment Summary Assessment Pt has worsening back pain after HEP last night. Pt reports increased back pain with trunk extension and R lateral flexion (closed packed positions). Pt currently still have movement restrictions from his neurosurgeon (NO BLT, no lifting >5 lbs) until he's cleared in Nov appt. Modified pt's HEP to minimize low back involvement. Also educated him to use log roll for bed mobility. Physical Therapy Plan Next Visit Focus/Plan Next Note Type Treatment Note Next Visit Plan Review HEP Progress SLS strengthening, balance exercises Gait training with high knees, step up/down, sit to stand
--- NOTE | 2019-08-21 14:34 | PT.OTN ---
Current Diagnoses Cerebral infarction, unspecified (08/21/19) Physical Therapy Treatment Note PT-OP-A Visit Information Start: 08/10/19 08:12 Freq: Status: Active Protocol: Document 08/21/19 14:34 SP (Rec: 08/21/19 15:49 SP [email or web address]) Out-Patient Physical Therapy Visit Information Visit Information Visit Type Treatment Note Visit Start Time 13:48 Visit Stop Time 14:34 Total Visit Minutes 47 Visit Number 02/03 Number of CRYPTOLOGIC LINGUIST Visits 1 PT-OP-B Current Condition Start: 08/10/19 08:12 Freq: Status: Active Protocol: Document 08/10/19 10:35 HH (Rec: 08/10/19 12:09 HH [id number]) Current Condition History of Current Condition Onset Date 07/07/19 Current Complaints s/p minor CVA, decreased balance, strength and difficulty in walking History of Current Condition Pt is a 68 yo male who was admitted to ER at [facility] due to worst headache at the base of his head on , along wit nausea and vomiting. CT revealed acute diffuse subarachnoid hemorrhage. Pt said he was recovered quick from hospitalization until today. His primary c/o was decreased balance, strength and difficulty in walking. He used walker at first and progressed to be an independent ambulator. He also has c/o constant tightness at back of his head and frontal part and B hamstrings. Pt stated he is very high functional at this point and no much of deficits but want to see if participating PT will discover any deficits. Pt currently follows post CVA restrictions with no heavy lifting >5lbs, No sports, twisting, pulling, bending or operating heavy machinery until cleared by neurosurgeon. hamstring tightness, headache Prior Treatments and Tests PMH- C3-4 fx s/p C3-4 anterior cervical diskectomy and fusion in jun 2018 Future Testing and Treatments Planned Pt will see neurosurgeon in Nov. Treatment Goals Patient/Caregiver Goals 1. To improve his overall balance 2. To improve his posterior chain flexibility 3. To strengthen B LEs Prior Functional Status Baseline Function- ADL's Independent Baseline Function- Mobility Independent Baseline Function- Other Patient reports full independence prior to SAH. Current Functional Impairments (Reported) Functional Limitations- ADL's Pt reports independent with ADLs Functional Limitations- Mobility/Gait Pt reports requiring walker for mobility and ambulation initially after d/c from hospital but was then able to transition to a cane and then to no AD for short distance ambulation. Pt reports a limitation in the distance he can ambulate. Functional Limitations- Work/School Pt is retired. Functional Limitations- Other Limitations in IADLs and recreational activities d/t cont lifting and bending/ twisting restrictions. Pt notes that he still needs to use hand rails for stairs d/t feeling weak and off balance. Personal Factors Other Personal Factors That May Effect previous cervical sx 1 year Therapy/Recovery ago. PT-OP-C Subjective Start: 08/10/19 08:12 Freq: Status: Active Protocol: Document 08/21/19 14:34 SP (Rec: 08/21/19 15:49 SP [email or web address]) OP-PT Subjective Patient Comments Patient Comments I felt alot better after last tx, the modifications with HEP helped alot. I feel pretty good today, doing my exercises, want to review the hands and knees exercise added last time. Patient Reported Progress Improving PT-OP-D Balance Start: 08/10/19 08:12 Freq: Status: Active Protocol: Document 08/10/19 10:35 HH (Rec: 08/10/19 12:09 [id number]) OP-PT Balance Assessment Sitting Balance Static Sitting Balance Ability Normal Dynamic Sitting Balance Ability Good Standing Balance Static Standing Balance Ability Good Dynamic Standing Balance Ability Fair Balance Tests Single Limb Standing Single Limb- Right 33 Single Limb- Left 7 Other Other Balance Tests Performed excessive lateral hip sway while standing on LLE Garcia Fall Scale Copyright Permission PT-OP-E Functional Tests Start: 08/10/19 08:12 Freq: Status: Active Protocol: Document 08/14/19 15:25 SP (Rec: 08/14/19 15:49 SP [email or web address]) Functional Tests 6 Minute Walk Test Distance 1292 Device Used 0 Comments slight wt shift x1 to R wide turning 1 corner no LOB Dynamic Gait Index (DGI) Score 23/24 DGI Impairment Rating 1 to <20% Impaired (Score 20- 23) Functional Gait Assessment Score 25/30 Functional Gait Assessment Impairment 1 to <20% Impaired (Score 25- Rating 29) PT-OP-H Neuro Start: 08/10/19 08:12 Freq: Status: Active Protocol: Document 08/10/19 10:35 HH (Rec: 08/10/19 12:09 [id number]) Sensation Evaluation Gross Sensation Gross Sensation WNL Coordination Evaluation Upper Extremity Tests Right Finger to Nose Test Normal Performance Finger to Therapist's Finger Test Minimal Impairment Pronation/Supination Test Normal Performance Left Finger to Nose Test Minimal Impairment Finger to Therapist's Finger Test Minimal Impairment Pronation/Supination Test Normal Performance Lower Extremity Tests Right Alternate Heel to Knee; Heel to Toe Test Normal Performance Heel on Magdaleno Test Normal Performance Foot Tapping Test Normal Performance Left Alternate Heel to Knee; Heel to Toe Test Normal Performance Heel on Magdaleno Test Minimal Impairment Foot Tapping Test Normal Performance Deep Tendon Reflex & Clonus Assessment Deep Tendon Reflex Bilateral Achilles Deep Tendon Reflex 2+ Normal Bilateral Patellar Deep Tendon Reflex 2+ Normal Ankle Clonus Bilateral Clonus Assessment Absent PT-OP-L Special Tests Start: 08/10/19 08:12 Freq: Status: Active Protocol: Document 08/10/19 10:35 HH (Rec: 08/10/19 12:09 [id number]) Special Tests Neural Special Tests- Lower Body SLR Test Results B + sx reproduction, (-) sensitization Other Special Tests Special Tests single leg squat R= 22 inches L= 25 inches Hamstring length 90/90 test: B 45/90 with + sx reproduction PT-OP-M Strength Start: 08/10/19 08:12 Freq: Status: Active Protocol: Document 08/10/19 10:35 HH (Rec: 08/10/19 12:09 [id number]) Elbow/Forearm Strength Elbow and Forearm Manual Muscle Testing Right Flexion (C6) 4 Good Extension (C7) 4 Good Left Flexion (C6) 5 Normal Extension (C7) 5 Normal Wrist Strength Wrist Manual Muscle Testing Right Flexion (C7) 4 Good Extension (C6) 4 Good Left Flexion (C7) 5 Normal Extension (C6) 5 Normal Hip Strength Hip Manual Muscle Testing Right Flexion (L2) 4 Good Extension (S1) 5 Normal Abduction 5 Normal Adduction 5 Normal Left Flexion (L2) 4- Good- Extension (S1) 4+ Good+ Abduction 4 Good Adduction 4 Good Knee Strength Knee Manual Muscle Testing Left Flexion (S2) 5 Normal Extension (L3) 5 Normal Right Flexion (S2) 5 Normal Extension (L3) 5 Normal PT-OP-Q Treatments Start: 08/10/19 08:12 Freq: Status: Active Protocol: Document 08/21/19 14:34 SP (Rec: 08/21/19 15:49 SP [email or web address]) Therapeutic Exercises Sitting Exercises seated nerve floss Sitting Exercise Name HS flexibility and sciatic nerve glide Side bilateral glut stretch Sitting Exercise Name ER/IR Side bilateral Reps/Minutes 30 x2-3 Comments Leg cross over opposite knee, rest position then toward floor, then opp shd HS stretch Side bilateral Reps/Minutes 30 x2 Standing Exercises eccentric squts Equipment Used chair Reps/Minutes 3x5 Comments cued hip hinge and knees inline and behind toes Neck/back stretch Standing Exercise Name Deep neck flexion, scap retract/depress, neutral LS Equipment Used back to wall Reps/Minutes 10 hold x5 Comments cued postural awareness provided to assist squat taps and step downs Single leg stance Side bilateral Reps/Minutes 30, 30, 42 L LE; 30, 30, 56 RLE Comments cued for glut med/hip abd range for recovery before contact recovery used eccentric step down Side bilateral Equipment Used 4 step Reps/Minutes 3x10 Comments posterior/glut facilitation, knee alignment inline and behind toes Other Exercises birddog Side bilateral Equipment Used stick posterior back Reps/Minutes 5 x 3 Comments UE/LE ext lift opposite together with occasional cue for form PT-OP-T Assessment and Plan Start: 08/10/19 08:12 Freq: Status: Active Protocol: Document 08/21/19 14:34 SP (Rec: 08/21/19 15:49 SP [email or web address]) Physical Therapy Assessment Goals Single leg squat Impairment Pt has impaired strength in LEs L>R Short Term Goal (STG) Pt will be able to complete SLS from 22 surface bilaterally STG Duration 4 weeks Tool Planner Goal (LTG) Pt will be able to complete SLS from 20 surface B to improve safety with stair climbing. LTG Duration 8 weeks Single leg balance Impairment Pt has limited ability to balance single leg L>R Short Term Goal (STG) Pt will be able to balance for 40 sec on R leg and 20 sec on L without handhold support. 08/21/19- 56 sec R leg, 42 sec L leg SLS. Met goal STG Duration 4 weeks Tool Planner Goal (LTG) Pt will be able to balance for 45 sec on each leg without handhold support to improve safety with mobility and ambulation. LTG Duration 8 weeks Hamstring tension Impairment Pt complains of tension and radiating pain into hamstrings Short Term Goal (STG) Pt will be able to achieve full knee extension in slump position and perform hip hinge without reporting hamstring tension. STG Duration 4 weeks Usp Goal (LTG) Pt will be able to complete ADLs with reports of <3/10 hamstring tension to improve tolerance for regular activities. LTG Duration 8 weeks HEP Impairment Pt does not have HEP Short Term Goal (STG) 08/21/19- Progressing in HEP. Tool Planner Goal (LTG) Pt will demonstrate HEP safely and independently to improve functional mobility and return to regular recreational activities. LTG Duration 8 weeks Assessment Summary Assessment Tx focused on review HEP and able to incorporate UE/LE ext together, tolerated added eccentric squats with cuing for proper form. Pt stated is finding self STMs using foam roller HS and tennis ball roll at wall LS is helpful to decrease tightness. Physical Therapy Plan Frequency and Duration Frequency of Treatment 2x/Week Duration of Treatment 8 weeks Plan of Care Start Date 08/10/19 Plan of Care End Date 10/05/19 Therapeutic Interventions Therapeutic Interventions Balance Training,Gait Training ,Home Exercise Program,Manual Therapy,Neuromuscular Re- education,Patient/Caregiver Education,Self-Care/Home Management,Therapeutic Activities,Therapeutic Exercises Next Visit Focus/Plan Next Note Type Treatment Note Next Visit Plan Review HEP (new eccentric squat, bird dog UE/LE lift together). Progress SLS strengthening, balance exercises Gait training with high knees, step up/down, sit to stand
--- NOTE | 2019-08-23 17:42 | PT.OTN ---
Current Diagnoses Cerebral infarction, unspecified (08/23/19) Physical Therapy Treatment Note PT-OP-A Visit Information Start: 08/10/19 08:12 Freq: Status: Active Protocol: Document 08/23/19 16:47 HH (Rec: 08/23/19 17:42 HH [id number]) Out-Patient Physical Therapy Visit Information Visit Information Visit Type Treatment Note Visit Start Time 16:47 Visit Stop Time 17:30 Total Visit Minutes 43 Visit Number 03/05 Number of HEALTHCARE MANAGEMENT CONSULTANT Visits 0 PT-OP-B Current Condition Start: 08/10/19 08:12 Freq: Status: Active Protocol: Document 08/10/19 10:35 HH (Rec: 08/10/19 12:09 [id number]) Current Condition History of Current Condition Onset Date 07/07/19 Current Complaints s/p minor CVA, decreased balance, strength and difficulty in walking History of Current Condition Pt is a 68 yo male who was admitted to ER at [facility] due to worst headache at the base of his head on , along wit nausea and vomiting. CT revealed acute diffuse subarachnoid hemorrhage. Pt said he was recovered quick from hospitalization until today. His primary c/o was decreased balance, strength and difficulty in walking. He used walker at first and progressed to be an independent ambulator. He also has c/o constant tightness at back of his head and frontal part and B hamstrings. Pt stated he is very high functional at this point and no much of deficits but want to see if participating PT will discover any deficits. Pt currently follows post CVA restrictions with no heavy lifting >5lbs, No sports, twisting, pulling, bending or operating heavy machinery until cleared by neurosurgeon. hamstring tightness, headache Prior Treatments and Tests PMH- C3-4 fx s/p C3-4 anterior cervical diskectomy and fusion in jun 2018 Future Testing and Treatments Planned Pt will see neurosurgeon in Nov. Treatment Goals Patient/Caregiver Goals 1. To improve his overall balance 2. To improve his posterior chain flexibility 3. To strengthen B LEs Prior Functional Status Baseline Function- ADL's Independent Baseline Function- Mobility Independent Baseline Function- Other Patient reports full independence prior to SAH. Current Functional Impairments (Reported) Functional Limitations- ADL's Pt reports independent with ADLs Functional Limitations- Mobility/Gait Pt reports requiring walker for mobility and ambulation initially after d/c from hospital but was then able to transition to a cane and then to no AD for short distance ambulation. Pt reports a limitation in the distance he can ambulate. Functional Limitations- Work/School Pt is retired. Functional Limitations- Other Limitations in IADLs and recreational activities d/t cont lifting and bending/ twisting restrictions. Pt notes that he still needs to use hand rails for stairs d/t feeling weak and off balance. Personal Factors Other Personal Factors That May Effect previous cervical sx 1 year Therapy/Recovery ago. PT-OP-C Subjective Start: 08/10/19 08:12 Freq: Status: Active Protocol: Document 08/23/19 16:47 HH (Rec: 08/23/19 17:42 HH [id number]) OP-PT Subjective Patient Comments Patient Comments Im doing good since i use tennis ball to release my back and neck. I could do stair without using rails now. The ex from wednesday did get me sore and i still feel a little bit today. Patient Reported Progress Improving PT-OP-D Balance Start: 08/10/19 08:12 Freq: Status: Active Protocol: Document 08/10/19 10:35 HH (Rec: 08/10/19 12:09 HH [id number]) OP-PT Balance Assessment Sitting Balance Static Sitting Balance Ability Normal Dynamic Sitting Balance Ability Good Standing Balance Static Standing Balance Ability Good Dynamic Standing Balance Ability Fair Balance Tests Single Limb Standing Single Limb- Right 33 Single Limb- Left 7 Other Other Balance Tests Performed excessive lateral hip sway while standing on LLE Garcia Fall Scale Copyright Permission PT-OP-E Functional Tests Start: 08/10/19 08:12 Freq: Status: Active Protocol: Document 08/14/19 15:25 SP (Rec: 08/14/19 15:49 SP [email or web address]) Functional Tests 6 Minute Walk Test Distance 1292 Device Used 0 Comments slight wt shift x1 to R wide turning 1 corner no LOB Dynamic Gait Index (DGI) Score 23/24 DGI Impairment Rating 1 to <20% Impaired (Score 20- 23) Functional Gait Assessment Score 25/30 Functional Gait Assessment Impairment 1 to <20% Impaired (Score 25- Rating 29) PT-OP-H Neuro Start: 08/10/19 08:12 Freq: Status: Active Protocol: Document 08/10/19 10:35 HH (Rec: 08/10/19 12:09 [id number]) Sensation Evaluation Gross Sensation Gross Sensation WNL Coordination Evaluation Upper Extremity Tests Right Finger to Nose Test Normal Performance Finger to Therapist's Finger Test Minimal Impairment Pronation/Supination Test Normal Performance Left Finger to Nose Test Minimal Impairment Finger to Therapist's Finger Test Minimal Impairment Pronation/Supination Test Normal Performance Lower Extremity Tests Right Alternate Heel to Knee; Heel to Toe Test Normal Performance Heel on Magdaleno Test Normal Performance Foot Tapping Test Normal Performance Left Alternate Heel to Knee; Heel to Toe Test Normal Performance Heel on Magdaleno Test Minimal Impairment Foot Tapping Test Normal Performance Deep Tendon Reflex & Clonus Assessment Deep Tendon Reflex Bilateral Achilles Deep Tendon Reflex 2+ Normal Bilateral Patellar Deep Tendon Reflex 2+ Normal Ankle Clonus Bilateral Clonus Assessment Absent PT-OP-L Special Tests Start: 08/10/19 08:12 Freq: Status: Active Protocol: Document 08/10/19 10:35 HH (Rec: 08/10/19 12:09 [id number]) Special Tests Neural Special Tests- Lower Body SLR Test Results B + sx reproduction, (-) sensitization Other Special Tests Special Tests single leg squat R= 22 inches L= 25 inches Hamstring length 90/90 test: B 45/90 with + sx reproduction PT-OP-M Strength Start: 08/10/19 08:12 Freq: Status: Active Protocol: Document 08/10/19 10:35 HH (Rec: 08/10/19 12:09 [id number]) Elbow/Forearm Strength Elbow and Forearm Manual Muscle Testing Right Flexion (C6) 4 Good Extension (C7) 4 Good Left Flexion (C6) 5 Normal Extension (C7) 5 Normal Wrist Strength Wrist Manual Muscle Testing Right Flexion (C7) 4 Good Extension (C6) 4 Good Left Flexion (C7) 5 Normal Extension (C6) 5 Normal Hip Strength Hip Manual Muscle Testing Right Flexion (L2) 4 Good Extension (S1) 5 Normal Abduction 5 Normal Adduction 5 Normal Left Flexion (L2) 4- Good- Extension (S1) 4+ Good+ Abduction 4 Good Adduction 4 Good Knee Strength Knee Manual Muscle Testing Left Flexion (S2) 5 Normal Extension (L3) 5 Normal Right Flexion (S2) 5 Normal Extension (L3) 5 Normal PT-OP-Q Treatments Start: 08/10/19 08:12 Freq: Status: Active Protocol: Document 08/23/19 16:47 HH (Rec: 08/23/19 17:42 [id number]) Therapeutic Exercises Supine Exercises supine pelvic tilt Side bilateral Reps/Minutes 8 x 3 Comments cues on abdominal control Sitting Exercises seated nerve glide Sitting Exercise Name add cervical flexoin Side bilateral Comments alternated isolated knee flexoin Standing Exercises eccentric squts Equipment Used chair Reps/Minutes 3x5 Comments cued hip hinge and knees inline and behind toes Other Exercises birddog Side bilateral Equipment Used weighted ball posterior back Reps/Minutes 5 x 3 Comments UE/LE ext lift opposite together with occasional cue for form Therapeutic Activity Therapeutic Activity stair climbing Reps/Minutes 6' steps Comments 3 rounds trips. step up Name alt step up with opposite knee drive to hip Reps/Minutes 6' step Comments without support Neuro Re-Education Treatment Balance Activities tandem walk Surface ground level Equipment next to grab bar Comments heeltoe pattern single leg stance Surface ground level Equipment next to grab bar Reps/Duration 1 min each high knee walk Surface ground level Equipment next to grab bar Reps/Duration 15 feet x 5 PT-OP-T Assessment and Plan Start: 08/10/19 08:12 Freq: Status: Active Protocol: Document 08/23/19 16:47 (Rec: 08/23/19 17:42 [id number]) Physical Therapy Assessment Goals Single leg squat Impairment Pt has impaired strength in LEs L>R Short Term Goal (STG) Pt will be able to complete SLS from 22 surface bilaterally STG Duration 4 weeks Loss Control Engineer Goal (LTG) Pt will be able to complete SLS from 20 surface B to improve safety with stair climbing. LTG Duration 8 weeks Single leg balance Impairment Pt has limited ability to balance single leg L>R Short Term Goal (STG) Pt will be able to balance for 40 sec on R leg and 20 sec on L without handhold support. 08/21/19- 56 sec R leg, 42 sec L leg SLS. Met goal STG Duration 4 weeks [facility] Goal (LTG) Pt will be able to balance for 45 sec on each leg without handhold support to improve safety with mobility and ambulation. LTG Duration 8 weeks Hamstring tension Impairment Pt complains of tension and radiating pain into hamstrings Short Term Goal (STG) Pt will be able to achieve full knee extension in slump position and perform hip hinge without reporting hamstring tension. STG Duration 4 weeks [facility] Goal (LTG) Pt will be able to complete ADLs with reports of <3/10 hamstring tension to improve tolerance for regular activities. LTG Duration 8 weeks HEP Impairment Pt does not have HEP Short Term Goal (STG) 08/21/19- Progressing in HEP. [facility] Goal (LTG) Pt will demonstrate HEP safely and independently to improve functional mobility and return to regular recreational activities. LTG Duration 8 weeks Assessment Summary Assessment Pt c/o soreness with HEP, especially chair touch squat. Will have to closely monitor pt's tolerance with HEP. Re- prioritized pt's HEP at the end of session, added step up . Pt is getting better in general. He shows increased tolerance for sciatic neural tension. (replace with seated nerve glide with cervical flexion) Pt;s overall balance also improved significantly who is able to negotiate stairs without rails; tandem walk without support. Pt still has difficulty maintaining SLS during step up . Physical Therapy Plan Next Visit Focus/Plan Next Note Type Treatment Note Next Visit Plan monitor pt's tolerance to HEP Review HEP (new eccentric squat, bird dog UE/LE lift together). posterior chain neural sensitivity. Progress SLS strengthening, balance exercises Gait training with high knees, step up/down, sit to stand
--- NOTE | 2019-08-31 16:46 | PT.OTN ---
Current Diagnoses Cerebral infarction, unspecified (08/31/19) Physical Therapy Treatment Note PT-OP-A Visit Information Start: 08/10/19 08:12 Freq: Status: Active Protocol: Document 08/31/19 16:01 (Rec: 08/31/19 16:46 [id number]) Out-Patient Physical Therapy Visit Information Visit Information Visit Type Treatment Note Visit Note tx session led by Lara Visit Start Time 16:01 Visit Stop Time 16:45 Total Visit Minutes 44 Visit Number 04/05 Number of EMBOSSING CALENDER OPERATOR Visits 0 PT-OP-B Current Condition Start: 08/10/19 08:12 Freq: Status: Active Protocol: Document 08/10/19 10:35 (Rec: 08/10/19 12:09 [id number]) Current Condition History of Current Condition Onset Date 07/07/19 Current Complaints s/p minor CVA, decreased balance, strength and difficulty in walking History of Current Condition Pt is a 68 yo male who was admitted to ER at [facility] due to worst headache at the base of his head on , along wit nausea and vomiting. CT revealed acute diffuse subarachnoid hemorrhage. Pt said he was recovered quick from hospitalization until today. His primary c/o was decreased balance, strength and difficulty in walking. He used walker at first and progressed to be an independent ambulator. He also has c/o constant tightness at back of his head and frontal part and B hamstrings. Pt stated he is very high functional at this point and no much of deficits but want to see if participating PT will discover any deficits. Pt currently follows post CVA restrictions with no heavy lifting >5lbs, No sports, twisting, pulling, bending or operating heavy machinery until cleared by neurosurgeon. hamstring tightness, headache Prior Treatments and Tests PMH- C3-4 fx s/p C3-4 anterior cervical diskectomy and fusion in jun 2018 Future Testing and Treatments Planned Pt will see neurosurgeon in Nov. Treatment Goals Patient/Caregiver Goals 1. To improve his overall balance 2. To improve his posterior chain flexibility 3. To strengthen B LEs Prior Functional Status Baseline Function- ADL's Independent Baseline Function- Mobility Independent Baseline Function- Other Patient reports full independence prior to SAH. Current Functional Impairments (Reported) Functional Limitations- ADL's Pt reports independent with ADLs Functional Limitations- Mobility/Gait Pt reports requiring walker for mobility and ambulation initially after d/c from hospital but was then able to transition to a cane and then to no AD for short distance ambulation. Pt reports a limitation in the distance he can ambulate. Functional Limitations- Work/School Pt is retired. Functional Limitations- Other Limitations in IADLs and recreational activities d/t cont lifting and bending/ twisting restrictions. Pt notes that he still needs to use hand rails for stairs d/t feeling weak and off balance. Personal Factors Other Personal Factors That May Effect previous cervical sx 1 year Therapy/Recovery ago. PT-OP-C Subjective Start: 08/10/19 08:12 Freq: Status: Active Protocol: Document 08/31/19 16:01 HH (Rec: 08/31/19 16:46 HH [id number]) OP-PT Subjective Patient Comments Patient Comments My back has been feeling good . Im getting stronger and feeling better. Stair climbing is easy now as well. Patient Reported Progress Improving PT-OP-D Balance Start: 08/10/19 08:12 Freq: Status: Active Protocol: Document 08/10/19 10:35 HH (Rec: 08/10/19 12:09 [id number]) OP-PT Balance Assessment Sitting Balance Static Sitting Balance Ability Normal Dynamic Sitting Balance Ability Good Standing Balance Static Standing Balance Ability Good Dynamic Standing Balance Ability Fair Balance Tests Single Limb Standing Single Limb- Right 33 Single Limb- Left 7 Other Other Balance Tests Performed excessive lateral hip sway while standing on LLE Garcia Fall Scale Copyright Permission PT-OP-E Functional Tests Start: 08/10/19 08:12 Freq: Status: Active Protocol: Document 08/14/19 15:25 SP (Rec: 08/14/19 15:49 SP [id number]) Functional Tests 6 Minute Walk Test Distance 1292 Device Used 0 Comments slight wt shift x1 to R wide turning 1 corner no LOB Dynamic Gait Index (DGI) Score 23/24 DGI Impairment Rating 1 to <20% Impaired (Score 20- 23) Functional Gait Assessment Score 25/30 Functional Gait Assessment Impairment 1 to <20% Impaired (Score 25- Rating 29) PT-OP-H Neuro Start: 08/10/19 08:12 Freq: Status: Active Protocol: Document 08/10/19 10:35 HH (Rec: 08/10/19 12:09 [id number]) Sensation Evaluation Gross Sensation Gross Sensation WNL Coordination Evaluation Upper Extremity Tests Right Finger to Nose Test Normal Performance Finger to Therapist's Finger Test Minimal Impairment Pronation/Supination Test Normal Performance Left Finger to Nose Test Minimal Impairment Finger to Therapist's Finger Test Minimal Impairment Pronation/Supination Test Normal Performance Lower Extremity Tests Right Alternate Heel to Knee; Heel to Toe Test Normal Performance Heel on Magdaleno Test Normal Performance Foot Tapping Test Normal Performance Left Alternate Heel to Knee; Heel to Toe Test Normal Performance Heel on Magdaleno Test Minimal Impairment Foot Tapping Test Normal Performance Deep Tendon Reflex & Clonus Assessment Deep Tendon Reflex Bilateral Achilles Deep Tendon Reflex 2+ Normal Bilateral Patellar Deep Tendon Reflex 2+ Normal Ankle Clonus Bilateral Clonus Assessment Absent PT-OP-L Special Tests Start: 08/10/19 08:12 Freq: Status: Active Protocol: Document 08/10/19 10:35 HH (Rec: 08/10/19 12:09 [id number]) Special Tests Neural Special Tests- Lower Body SLR Test Results B + sx reproduction, (-) sensitization Other Special Tests Special Tests single leg squat R= 22 inches L= 25 inches Hamstring length 90/90 test: B 45/90 with + sx reproduction PT-OP-M Strength Start: 08/10/19 08:12 Freq: Status: Active Protocol: Document 08/10/19 10:35 (Rec: 08/10/19 12:09 [id number]) Elbow/Forearm Strength Elbow and Forearm Manual Muscle Testing Right Flexion (C6) 4 Good Extension (C7) 4 Good Left Flexion (C6) 5 Normal Extension (C7) 5 Normal Wrist Strength Wrist Manual Muscle Testing Right Flexion (C7) 4 Good Extension (C6) 4 Good Left Flexion (C7) 5 Normal Extension (C6) 5 Normal Hip Strength Hip Manual Muscle Testing Right Flexion (L2) 4 Good Extension (S1) 5 Normal Abduction 5 Normal Adduction 5 Normal Left Flexion (L2) 4- Good- Extension (S1) 4+ Good+ Abduction 4 Good Adduction 4 Good Knee Strength Knee Manual Muscle Testing Left Flexion (S2) 5 Normal Extension (L3) 5 Normal Right Flexion (S2) 5 Normal Extension (L3) 5 Normal PT-OP-Q Treatments Start: 08/10/19 08:12 Freq: Status: Active Protocol: Document 08/31/19 16:01 (Rec: 08/31/19 16:46 [id number]) Therapeutic Exercises Prone Exercises child pose Side bilateral Reps/Minutes 3 mins Comments buttocks to heels cat camel Side bilateral Reps/Minutes 4 mins Comments isolated lumbar movements Standing Exercises crab walk Side bilateral Equipment Used with yellow band Reps/Minutes 15 ft x 5 Other Exercises hip flexor stretch Other Exercise Name lunge position Side bilateral Reps/Minutes 20 secs hold x 4 Neuro Re-Education Treatment Balance Activities robert Details focus on SLS Surface ground level Equipment robert Reps/Duration 4 mins tandem walk Surface ground level Equipment next to grab bar Comments heeltoe pattern single leg stance Details toe tap on cones Surface ground level Equipment next to grab bar high knee walk Details in front of mirror Surface ground level Equipment next to grab bar Reps/Duration 15 feet x 5 Comments hands on hip to prevent lateral weight shift PT-OP-T Assessment and Plan Start: 08/10/19 08:12 Freq: Status: Active Protocol: Document 08/31/19 16:01 (Rec: 08/31/19 16:46 [id number]) Physical Therapy Assessment Goals Single leg squat Impairment Pt has impaired strength in LEs L>R Short Term Goal (STG) Pt will be able to complete SLS from 22 surface bilaterally STG Duration 4 weeks Halfway Goal (LTG) Pt will be able to complete SLS from 20 surface B to improve safety with stair climbing. LTG Duration 8 weeks Single leg balance Impairment Pt has limited ability to balance single leg L>R Short Term Goal (STG) Pt will be able to balance for 40 sec on R leg and 20 sec on L without handhold support. 08/21/19- 56 sec R leg, 42 sec L leg SLS. Met goal STG Duration 4 weeks Halfway Goal (LTG) Pt will be able to balance for 45 sec on each leg without handhold support to improve safety with mobility and ambulation. LTG Duration 8 weeks Hamstring tension Impairment Pt complains of tension and radiating pain into hamstrings Short Term Goal (STG) Pt will be able to achieve full knee extension in slump position and perform hip hinge without reporting hamstring tension. STG Duration 4 weeks Cancer Registry Manager Goal (LTG) Pt will be able to complete ADLs with reports of <3/10 hamstring tension to improve tolerance for regular activities. LTG Duration 8 weeks HEP Impairment Pt does not have HEP Short Term Goal (STG) 08/21/19- Progressing in HEP. Cancer Registry Manager Goal (LTG) Pt will demonstrate HEP safely and independently to improve functional mobility and return to regular recreational activities. LTG Duration 8 weeks Assessment Summary Assessment Pt shows improved mobility and reduced pain. Introduced lumbar ROM ex to him today, also focused on single leg balance and hip stability training since pt has excessive lateral weight shift during SLS and limited hip extension Physical Therapy Plan Next Visit Focus/Plan Next Note Type Treatment Note Next Visit Plan monitor pt's tolerance to HEP Review HEP (new eccentric squat, bird dog UE/LE lift together). posterior chain neural sensitivity. Progress SLS strengthening, balance exercises Gait training with high knees, step up/down, sit to stand
--- NOTE | 2019-09-06 15:18 | PT.OTN ---
Current Diagnoses Cerebral infarction, unspecified (09/06/19) Physical Therapy Treatment Note PT-OP-A Visit Information Start: 08/10/19 08:12 Freq: Status: Active Protocol: Document 09/06/19 14:32 HH (Rec: 09/06/19 15:18 [id number]) Out-Patient Physical Therapy Visit Information Visit Information Visit Type Treatment Note Visit Note tx session led by Lara Visit Start Time 14:32 Visit Stop Time 15:15 Total Visit Minutes 43 Visit Number 05/05 Number of BAND TIER Visits 0 PT-OP-B Current Condition Start: 08/10/19 08:12 Freq: Status: Active Protocol: Document 08/10/19 10:35 HH (Rec: 08/10/19 12:09 [id number]) Current Condition History of Current Condition Onset Date 07/07/19 Current Complaints s/p minor CVA, decreased balance, strength and difficulty in walking History of Current Condition Pt is a 68 yo male who was admitted to ER at [facility] due to worst headache at the base of his head on , along wit nausea and vomiting. CT revealed acute diffuse subarachnoid hemorrhage. Pt said he was recovered quick from hospitalization until today. His primary c/o was decreased balance, strength and difficulty in walking. He used walker at first and progressed to be an independent ambulator. He also has c/o constant tightness at back of his head and frontal part and B hamstrings. Pt stated he is very high functional at this point and no much of deficits but want to see if participating PT will discover any deficits. Pt currently follows post CVA restrictions with no heavy lifting >5lbs, No sports, twisting, pulling, bending or operating heavy machinery until cleared by neurosurgeon. hamstring tightness, headache Prior Treatments and Tests PMH- C3-4 fx s/p C3-4 anterior cervical diskectomy and fusion in jun 2018 Future Testing and Treatments Planned Pt will see neurosurgeon in Nov. Treatment Goals Patient/Caregiver Goals 1. To improve his overall balance 2. To improve his posterior chain flexibility 3. To strengthen B LEs Prior Functional Status Baseline Function- ADL's Independent Baseline Function- Mobility Independent Baseline Function- Other Patient reports full independence prior to SAH. Current Functional Impairments (Reported) Functional Limitations- ADL's Pt reports independent with ADLs Functional Limitations- Mobility/Gait Pt reports requiring walker for mobility and ambulation initially after d/c from hospital but was then able to transition to a cane and then to no AD for short distance ambulation. Pt reports a limitation in the distance he can ambulate. Functional Limitations- Work/School Pt is retired. Functional Limitations- Other Limitations in IADLs and recreational activities d/t cont lifting and bending/ twisting restrictions. Pt notes that he still needs to use hand rails for stairs d/t feeling weak and off balance. Personal Factors Other Personal Factors That May Effect previous cervical sx 1 year Therapy/Recovery ago. PT-OP-C Subjective Start: 08/10/19 08:12 Freq: Status: Active Protocol: Document 09/06/19 14:32 HH (Rec: 09/06/19 15:18 HH [id number]) OP-PT Subjective Patient Comments Patient Comments I feel like i am getting stronger. Everything is feeling good including my back , Patient Reported Progress Improving PT-OP-D Balance Start: 08/10/19 08:12 Freq: Status: Active Protocol: Document 08/10/19 10:35 HH (Rec: 08/10/19 12:09 [id number]) OP-PT Balance Assessment Sitting Balance Static Sitting Balance Ability Normal Dynamic Sitting Balance Ability Good Standing Balance Static Standing Balance Ability Good Dynamic Standing Balance Ability Fair Balance Tests Single Limb Standing Single Limb- Right 33 Single Limb- Left 7 Other Other Balance Tests Performed excessive lateral hip sway while standing on LLE Garcia Fall Scale Copyright Permission PT-OP-E Functional Tests Start: 08/10/19 08:12 Freq: Status: Active Protocol: Document 08/14/19 15:25 SP (Rec: 08/14/19 15:49 SP [id number]) Functional Tests 6 Minute Walk Test Distance 1292 Device Used 0 Comments slight wt shift x1 to R wide turning 1 corner no LOB Dynamic Gait Index (DGI) Score 23/24 DGI Impairment Rating 1 to <20% Impaired (Score 20- 23) Functional Gait Assessment Score 25/30 Functional Gait Assessment Impairment 1 to <20% Impaired (Score 25- Rating 29) PT-OP-H Neuro Start: 08/10/19 08:12 Freq: Status: Active Protocol: Document 08/10/19 10:35 HH (Rec: 08/10/19 12:09 [id number]) Sensation Evaluation Gross Sensation Gross Sensation WNL Coordination Evaluation Upper Extremity Tests Right Finger to Nose Test Normal Performance Finger to Therapist's Finger Test Minimal Impairment Pronation/Supination Test Normal Performance Left Finger to Nose Test Minimal Impairment Finger to Therapist's Finger Test Minimal Impairment Pronation/Supination Test Normal Performance Lower Extremity Tests Right Alternate Heel to Knee; Heel to Toe Test Normal Performance Heel on Magdaleno Test Normal Performance Foot Tapping Test Normal Performance Left Alternate Heel to Knee; Heel to Toe Test Normal Performance Heel on Magdaleno Test Minimal Impairment Foot Tapping Test Normal Performance Deep Tendon Reflex & Clonus Assessment Deep Tendon Reflex Bilateral Achilles Deep Tendon Reflex 2+ Normal Bilateral Patellar Deep Tendon Reflex 2+ Normal Ankle Clonus Bilateral Clonus Assessment Absent PT-OP-L Special Tests Start: 08/10/19 08:12 Freq: Status: Active Protocol: Document 08/10/19 10:35 HH (Rec: 08/10/19 12:09 [id number]) Special Tests Neural Special Tests- Lower Body SLR Test Results B + sx reproduction, (-) sensitization Other Special Tests Special Tests single leg squat R= 22 inches L= 25 inches Hamstring length 90/90 test: B 45/90 with + sx reproduction PT-OP-M Strength Start: 08/10/19 08:12 Freq: Status: Active Protocol: Document 08/10/19 10:35 HH (Rec: 08/10/19 12:09 [id number]) Elbow/Forearm Strength Elbow and Forearm Manual Muscle Testing Right Flexion (C6) 4 Good Extension (C7) 4 Good Left Flexion (C6) 5 Normal Extension (C7) 5 Normal Wrist Strength Wrist Manual Muscle Testing Right Flexion (C7) 4 Good Extension (C6) 4 Good Left Flexion (C7) 5 Normal Extension (C6) 5 Normal Hip Strength Hip Manual Muscle Testing Right Flexion (L2) 4 Good Extension (S1) 5 Normal Abduction 5 Normal Adduction 5 Normal Left Flexion (L2) 4- Good- Extension (S1) 4+ Good+ Abduction 4 Good Adduction 4 Good Knee Strength Knee Manual Muscle Testing Left Flexion (S2) 5 Normal Extension (L3) 5 Normal Right Flexion (S2) 5 Normal Extension (L3) 5 Normal PT-OP-Q Treatments Start: 08/10/19 08:12 Freq: Status: Active Protocol: Document 09/06/19 14:32 HH (Rec: 09/06/19 15:18 HH [id number]) Therapeutic Exercises Sitting Exercises seated pelvic tilt Side bilateral Equipment Used red zimbabwean ball Reps/Minutes 6 mins Comments hands block on T/S movements Standing Exercises sit to stand Standing Exercise Name 5 inch box underneath non working leg Side bilateral Reps/Minutes 10 x2 Comments cues on increasing weight shift on working LE Gait Training Gait Activity heel toe gait Surface ground level Distance/Duration 8 mins Treatment Focus increasing stride length Comments cues on heel strikes and toe push off Neuro Re-Education Treatment Balance Activities robert Details focus on SLS Surface ground level Equipment robert Reps/Duration 10 mins Comments with ankle rocking motion single leg stance Surface ground level Equipment next to grab bar Reps/Duration 20secs x 6 Comments followed by green foam PT-OP-T Assessment and Plan Start: 08/10/19 08:12 Freq: Status: Active Protocol: Document 09/06/19 14:32 HH (Rec: 09/06/19 15:18 HH [id number]) Physical Therapy Assessment Goals Single leg squat Impairment Pt has impaired strength in LEs L>R Short Term Goal (STG) Pt will be able to complete SLS from 22 surface bilaterally STG Duration 4 weeks Usp Goal (LTG) Pt will be able to complete SLS from 20 surface B to improve safety with stair climbing. LTG Duration 8 weeks Single leg balance Impairment Pt has limited ability to balance single leg L>R Short Term Goal (STG) Pt will be able to balance for 40 sec on R leg and 20 sec on L without handhold support. 08/21/19- 56 sec R leg, 42 sec L leg SLS. Met goal STG Duration 4 weeks Child Adolescent Psychiatrist Goal (LTG) Pt will be able to balance for 45 sec on each leg without handhold support to improve safety with mobility and ambulation. LTG Duration 8 weeks Hamstring tension Impairment Pt complains of tension and radiating pain into hamstrings Short Term Goal (STG) Pt will be able to achieve full knee extension in slump position and perform hip hinge without reporting hamstring tension. STG Duration 4 weeks Child Adolescent Psychiatrist Goal (LTG) Pt will be able to complete ADLs with reports of <3/10 hamstring tension to improve tolerance for regular activities. LTG Duration 8 weeks HEP Impairment Pt does not have HEP Short Term Goal (STG) 08/21/19- Progressing in HEP. Child Adolescent Psychiatrist Goal (LTG) Pt will demonstrate HEP safely and independently to improve functional mobility and return to regular recreational activities. LTG Duration 8 weeks Assessment Summary Assessment Pt presents improved hamstrings flexibility, isolated lumbar mobility. Improved single leg balance noted as well. Will cont progress balance training and overall strengthening and lumbar mobility training as asif Physical Therapy Plan Next Visit Focus/Plan Next Note Type Treatment Note Next Visit Plan monitor pt's tolerance to HEP Review HEP (new eccentric squat, bird dog UE/LE lift together). posterior chain neural sensitivity. Progress SLS strengthening, balance exercises Gait training with high knees, step up/down, sit to stand
--- NOTE | 2019-09-12 09:42 | PT.OTN ---
Current Diagnoses Cerebral infarction, unspecified (09/12/19) Physical Therapy Treatment Note PT-OP-A Visit Information Start: 08/10/19 08:12 Freq: Status: Active Protocol: Document 09/12/19 08:59 HH (Rec: 09/12/19 09:41 [id number]) Out-Patient Physical Therapy Visit Information Visit Information Visit Type Treatment Note Visit Note tx session led by Lara. Pt is going to see neurosurgeon tomorrow and will have CT scan . Visit Start Time 08:59 Visit Stop Time 09:45 Total Visit Minutes 46 Visit Number 06/05 Number of EXPANDING MACHINE OPERATOR Visits 0 PT-OP-B Current Condition Start: 08/10/19 08:12 Freq: Status: Active Protocol: Document 08/10/19 10:35 HH (Rec: 08/10/19 12:09 [id number]) Current Condition History of Current Condition Onset Date 07/07/19 Current Complaints s/p minor CVA, decreased balance, strength and difficulty in walking History of Current Condition Pt is a 68 yo male who was admitted to ER at [facility] due to worst headache at the base of his head on , along wit nausea and vomiting. CT revealed acute diffuse subarachnoid hemorrhage. Pt said he was recovered quick from hospitalization until today. His primary c/o was decreased balance, strength and difficulty in walking. He used walker at first and progressed to be an independent ambulator. He also has c/o constant tightness at back of his head and frontal part and B hamstrings. Pt stated he is very high functional at this point and no much of deficits but want to see if participating PT will discover any deficits. Pt currently follows post CVA restrictions with no heavy lifting >5lbs, No sports, twisting, pulling, bending or operating heavy machinery until cleared by neurosurgeon. hamstring tightness, headache Prior Treatments and Tests PMH- C3-4 fx s/p C3-4 anterior cervical diskectomy and fusion in jun 2018 Future Testing and Treatments Planned Pt will see neurosurgeon in Nov. Treatment Goals Patient/Caregiver Goals 1. To improve his overall balance 2. To improve his posterior chain flexibility 3. To strengthen B LEs Prior Functional Status Baseline Function- ADL's Independent Baseline Function- Mobility Independent Baseline Function- Other Patient reports full independence prior to SAH. Current Functional Impairments (Reported) Functional Limitations- ADL's Pt reports independent with ADLs Functional Limitations- Mobility/Gait Pt reports requiring walker for mobility and ambulation initially after d/c from hospital but was then able to transition to a cane and then to no AD for short distance ambulation. Pt reports a limitation in the distance he can ambulate. Functional Limitations- Work/School Pt is retired. Functional Limitations- Other Limitations in IADLs and recreational activities d/t cont lifting and bending/ twisting restrictions. Pt notes that he still needs to use hand rails for stairs d/t feeling weak and off balance. Personal Factors Other Personal Factors That May Effect previous cervical sx 1 year Therapy/Recovery ago. PT-OP-C Subjective Start: 08/10/19 08:12 Freq: Status: Active Protocol: Document 09/12/19 08:59 HH (Rec: 09/12/19 09:41 HH [id number]) OP-PT Subjective Patient Comments Patient Comments I got sore on the third day after last visit but i recovered in a day. My L ankle had a little pain after long walk the other day and it could be my fusion site rubbing my skin. It does happen occasionally. Patient Reported Progress Improving PT-OP-D Balance Start: 08/10/19 08:12 Freq: Status: Active Protocol: Document 08/10/19 10:35 HH (Rec: 08/10/19 12:09 HH [id number]) OP-PT Balance Assessment Sitting Balance Static Sitting Balance Ability Normal Dynamic Sitting Balance Ability Good Standing Balance Static Standing Balance Ability Good Dynamic Standing Balance Ability Fair Balance Tests Single Limb Standing Single Limb- Right 33 Single Limb- Left 7 Other Other Balance Tests Performed excessive lateral hip sway while standing on LLE Garcia Fall Scale Copyright Permission PT-OP-E Functional Tests Start: 08/10/19 08:12 Freq: Status: Active Protocol: Document 08/14/19 15:25 SP (Rec: 08/14/19 15:49 SP [id number]) Functional Tests 6 Minute Walk Test Distance 1292 Device Used 0 Comments slight wt shift x1 to R wide turning 1 corner no LOB Dynamic Gait Index (DGI) Score 23/24 DGI Impairment Rating 1 to <20% Impaired (Score 20- 23) Functional Gait Assessment Score 25/30 Functional Gait Assessment Impairment 1 to <20% Impaired (Score 25- Rating 29) PT-OP-H Neuro Start: 08/10/19 08:12 Freq: Status: Active Protocol: Document 08/10/19 10:35 (Rec: 08/10/19 12:09 [id number]) Sensation Evaluation Gross Sensation Gross Sensation WNL Coordination Evaluation Upper Extremity Tests Right Finger to Nose Test Normal Performance Finger to Therapist's Finger Test Minimal Impairment Pronation/Supination Test Normal Performance Left Finger to Nose Test Minimal Impairment Finger to Therapist's Finger Test Minimal Impairment Pronation/Supination Test Normal Performance Lower Extremity Tests Right Alternate Heel to Knee; Heel to Toe Test Normal Performance Heel on Magdaleno Test Normal Performance Foot Tapping Test Normal Performance Left Alternate Heel to Knee; Heel to Toe Test Normal Performance Heel on Magdaleno Test Minimal Impairment Foot Tapping Test Normal Performance Deep Tendon Reflex & Clonus Assessment Deep Tendon Reflex Bilateral Achilles Deep Tendon Reflex 2+ Normal Bilateral Patellar Deep Tendon Reflex 2+ Normal Ankle Clonus Bilateral Clonus Assessment Absent PT-OP-L Special Tests Start: 08/10/19 08:12 Freq: Status: Active Protocol: Document 08/10/19 10:35 (Rec: 08/10/19 12:09 [id number]) Special Tests Neural Special Tests- Lower Body SLR Test Results B + sx reproduction, (-) sensitization Other Special Tests Special Tests single leg squat R= 22 inches L= 25 inches Hamstring length 90/90 test: B 45/90 with + sx reproduction PT-OP-M Strength Start: 08/10/19 08:12 Freq: Status: Active Protocol: Document 08/10/19 10:35 (Rec: 08/10/19 12:09 [id number]) Elbow/Forearm Strength Elbow and Forearm Manual Muscle Testing Right Flexion (C6) 4 Good Extension (C7) 4 Good Left Flexion (C6) 5 Normal Extension (C7) 5 Normal Wrist Strength Wrist Manual Muscle Testing Right Flexion (C7) 4 Good Extension (C6) 4 Good Left Flexion (C7) 5 Normal Extension (C6) 5 Normal Hip Strength Hip Manual Muscle Testing Right Flexion (L2) 4 Good Extension (S1) 5 Normal Abduction 5 Normal Adduction 5 Normal Left Flexion (L2) 4- Good- Extension (S1) 4+ Good+ Abduction 4 Good Adduction 4 Good Knee Strength Knee Manual Muscle Testing Left Flexion (S2) 5 Normal Extension (L3) 5 Normal Right Flexion (S2) 5 Normal Extension (L3) 5 Normal PT-OP-Q Treatments Start: 08/10/19 08:12 Freq: Status: Active Protocol: Document 09/12/19 08:59 (Rec: 09/12/19 09:41 [id number]) Gym Equipment Shuttle Balance red Details WBOS Reps/Duration 4 mins Comments PT provides small perturbations. Therapeutic Exercises Prone Exercises child pose Side bilateral Reps/Minutes 3 mins Comments buttocks to heels cat camel Side bilateral Reps/Minutes 4 mins Comments isolated lumbar movements Sitting Exercises seated pelvic roll Side bilateral Equipment Used emirati ball Reps/Minutes 4 mins Comments isolated lumbar rotations seated pelvic tilt Side bilateral Equipment Used red emirati ball Reps/Minutes 6 mins Comments hands block on T/S movements Standing Exercises step down Standing Exercise Name cues on leveling hips. Side left Reps/Minutes 8 x 3 Comments R LE heel touch on ground short foot Side left single leg squat Standing Exercise Name R= 22 inch, L = 24 inch Equipment Used adjustable table sit to stand Standing Exercise Name 5 inch box underneath non working leg Side bilateral Reps/Minutes 8 Comments cues on increasing weight shift on working LE Single leg stance Equipment Used green foam Reps/Minutes 30 secs x 5 Neuro Re-Education Treatment Balance Activities single leg stance Surface ground level Equipment next to grab bar Reps/Duration 20secs x 6 Comments followed by green foam PT-OP-T Assessment and Plan Start: 08/10/19 08:12 Freq: Status: Active Protocol: Document 09/12/19 08:59 (Rec: 09/12/19 09:41 [id number]) Physical Therapy Assessment Goals Single leg squat Impairment Pt has impaired strength in LEs L>R Short Term Goal (STG) 09/12 : R= 22 inch; L=24 Pt will be able to complete SLS from 22 surface bilaterally STG Duration 4 weeks Trolley Car Overhauler Goal (LTG) Pt will be able to complete SLS from 20 surface B to improve safety with stair climbing. LTG Duration 8 weeks Single leg balance Impairment Pt has limited ability to balance single leg L>R Short Term Goal (STG) Pt will be able to balance for 40 sec on R leg and 20 sec on L without handhold support. 08/21/19- 56 sec R leg, 42 sec L leg SLS. Met goal STG Duration 4 weeks Trolley Car Overhauler Goal (LTG) 09/12: SLS on R = >50 secs : L = 40 secs. ll be able to balance for 45 sec on each leg without handhold support to improve safety with mobility and ambulation. LTG Duration 8 weeks Hamstring tension Impairment Pt complains of tension and radiating pain into hamstrings Short Term Goal (STG) 09/12= goal met PT is able to reasch full knee extension bilaterally at slump test. Pt will be able to achieve full knee extension in slump position and perform hip hinge without reporting hamstring tension. STG Duration 4 weeks Trolley Car Overhauler Goal (LTG) Pt will be able to complete ADLs with reports of <3/10 hamstring tension to improve tolerance for regular activities. LTG Duration 8 weeks Assessment Summary Assessment Pt cont to show improved isolated lumbar movements. Pt overall met most of his intermission coordinator goal already with improved single leg balance and strength. Pt cont demonstrated limited L ankle and hip stability and LLE strength. Pt will cont benefit from skilled therapy to strengthen his left LE and single leg balance. Physical Therapy Plan Next Visit Focus/Plan Next Note Type Treatment Note Next Visit Plan monitor pt's tolerance to HEP ankle and hip stability, step up and down single leg strengthening
--- NOTE | 2019-09-12 12:17 | PT.OPPN ---
Current Diagnoses Cerebral infarction, unspecified (09/12/19) Physical Therapy Progress Note PT-OP-A Visit Information Start: 08/10/19 08:12 Freq: Status: Active Protocol: Document 09/12/19 08:59 HH (Rec: 09/12/19 09:41 [id number]) Out-Patient Physical Therapy Visit Information Visit Information Visit Type Treatment Note Visit Note tx session led by Lara. Pt is going to see neurosurgeon tomorrow and will have CT scan . Visit Start Time 08:59 Visit Stop Time 09:45 Total Visit Minutes 46 Visit Number 06/05 Number of STARCH TREATING ASSISTANT Visits 0 PT-OP-B Current Condition Start: 08/10/19 08:12 Freq: Status: Active Protocol: Document 08/10/19 10:35 HH (Rec: 08/10/19 12:09 [id number]) Current Condition History of Current Condition Onset Date 07/07/19 Current Complaints s/p minor CVA, decreased balance, strength and difficulty in walking History of Current Condition Pt is a 68 yo male who was admitted to ER at [facility] due to worst headache at the base of his head on , along wit nausea and vomiting. CT revealed acute diffuse subarachnoid hemorrhage. Pt said he was recovered quick from hospitalization until today. His primary c/o was decreased balance, strength and difficulty in walking. He used walker at first and progressed to be an independent ambulator. He also has c/o constant tightness at back of his head and frontal part and B hamstrings. Pt stated he is very high functional at this point and no much of deficits but want to see if participating PT will discover any deficits. Pt currently follows post CVA restrictions with no heavy lifting >5lbs, No sports, twisting, pulling, bending or operating heavy machinery until cleared by neurosurgeon. hamstring tightness, headache Prior Treatments and Tests PMH- C3-4 fx s/p C3-4 anterior cervical diskectomy and fusion in jun 2018 Future Testing and Treatments Planned Pt will see neurosurgeon in Nov. Treatment Goals Patient/Caregiver Goals 1. To improve his overall balance 2. To improve his posterior chain flexibility 3. To strengthen B LEs Prior Functional Status Baseline Function- ADL's Independent Baseline Function- Mobility Independent Baseline Function- Other Patient reports full independence prior to SAH. Current Functional Impairments (Reported) Functional Limitations- ADL's Pt reports independent with ADLs Functional Limitations- Mobility/Gait Pt reports requiring walker for mobility and ambulation initially after d/c from hospital but was then able to transition to a cane and then to no AD for short distance ambulation. Pt reports a limitation in the distance he can ambulate. Functional Limitations- Work/School Pt is retired. Functional Limitations- Other Limitations in IADLs and recreational activities d/t cont lifting and bending/ twisting restrictions. Pt notes that he still needs to use hand rails for stairs d/t feeling weak and off balance. Personal Factors Other Personal Factors That May Effect previous cervical sx 1 year Therapy/Recovery ago. PT-OP-C Subjective Start: 08/10/19 08:12 Freq: Status: Active Protocol: Document 09/12/19 08:59 HH (Rec: 09/12/19 09:41 HH [id number]) OP-PT Subjective Patient Comments Patient Comments I got sore on the third day after last visit but i recovered in a day. My L ankle had a little pain after long walk the other day and it could be my fusion site rubbing my skin. It does happen occasionally. Patient Reported Progress Improving PT-OP-D Balance Start: 08/10/19 08:12 Freq: Status: Active Protocol: Document 08/10/19 10:35 HH (Rec: 08/10/19 12:09 HH [id number]) OP-PT Balance Assessment Sitting Balance Static Sitting Balance Ability Normal Dynamic Sitting Balance Ability Good Standing Balance Static Standing Balance Ability Good Dynamic Standing Balance Ability Fair Balance Tests Single Limb Standing Single Limb- Right 33 Single Limb- Left 7 Other Other Balance Tests Performed excessive lateral hip sway while standing on LLE Garcia Fall Scale Copyright Permission Radha JM, Radha RM, Pavan SJ. Development of a scale to identify the fall- prone patient. Can J Aging 1989;8;366-7. Michelet Garcia (2009). Preventing patient falls. (2nd ed). [place]: Schmidt. PT-OP-E Functional Tests Start: 08/10/19 08:12 Freq: Status: Active Protocol: Document 08/14/19 15:25 SP (Rec: 08/14/19 15:49 SP [id number]) Functional Tests 6 Minute Walk Test Distance 1292 Device Used 0 Comments slight wt shift x1 to R wide turning 1 corner no LOB Dynamic Gait Index (DGI) Score 23/24 DGI Impairment Rating 1 to <20% Impaired (Score 20- 23) Functional Gait Assessment Score 25/30 Functional Gait Assessment Impairment 1 to <20% Impaired (Score 25- Rating 29) PT-OP-H Neuro Start: 08/10/19 08:12 Freq: Status: Active Protocol: Document 08/10/19 10:35 (Rec: 08/10/19 12:09 [id number]) Sensation Evaluation Gross Sensation Gross Sensation WNL Coordination Evaluation Upper Extremity Tests Right Finger to Nose Test Normal Performance Finger to Therapist's Finger Test Minimal Impairment Pronation/Supination Test Normal Performance Left Finger to Nose Test Minimal Impairment Finger to Therapist's Finger Test Minimal Impairment Pronation/Supination Test Normal Performance Lower Extremity Tests Right Alternate Heel to Knee; Heel to Toe Test Normal Performance Heel on Magdaleno Test Normal Performance Foot Tapping Test Normal Performance Left Alternate Heel to Knee; Heel to Toe Test Normal Performance Heel on Magdaleno Test Minimal Impairment Foot Tapping Test Normal Performance Deep Tendon Reflex & Clonus Assessment Deep Tendon Reflex Bilateral Achilles Deep Tendon Reflex 2+ Normal Bilateral Patellar Deep Tendon Reflex 2+ Normal Ankle Clonus Bilateral Clonus Assessment Absent PT-OP-L Special Tests Start: 08/10/19 08:12 Freq: Status: Active Protocol: Document 08/10/19 10:35 HH (Rec: 08/10/19 12:09 [id number]) Special Tests Neural Special Tests- Lower Body SLR Test Results B + sx reproduction, (-) sensitization Other Special Tests Special Tests single leg squat R= 22 inches L= 25 inches Hamstring length 90/90 test: B 45/90 with + sx reproduction PT-OP-M Strength Start: 08/10/19 08:12 Freq: Status: Active Protocol: Document 08/10/19 10:35 (Rec: 08/10/19 12:09 [id number]) Elbow/Forearm Strength Elbow and Forearm Manual Muscle Testing Right Flexion (C6) 4 Good Extension (C7) 4 Good Left Flexion (C6) 5 Normal Extension (C7) 5 Normal Wrist Strength Wrist Manual Muscle Testing Right Flexion (C7) 4 Good Extension (C6) 4 Good Left Flexion (C7) 5 Normal Extension (C6) 5 Normal Hip Strength Hip Manual Muscle Testing Right Flexion (L2) 4 Good Extension (S1) 5 Normal Abduction 5 Normal Adduction 5 Normal Left Flexion (L2) 4- Good- Extension (S1) 4+ Good+ Abduction 4 Good Adduction 4 Good Knee Strength Knee Manual Muscle Testing Left Flexion (S2) 5 Normal Extension (L3) 5 Normal Right Flexion (S2) 5 Normal Extension (L3) 5 Normal PT-OP-T Assessment and Plan Start: 08/10/19 08:12 Freq: Status: Active Protocol: Document 09/12/19 08:59 HH (Rec: 09/12/19 09:41 [id number]) Physical Therapy Assessment Goals Single leg squat Impairment Pt has impaired strength in LEs L>R Short Term Goal (STG) 09/12 : R= 22 inch; L=24 Pt will be able to complete SLS from 22 surface bilaterally STG Duration 4 weeks Quality Improvement Manager Goal (LTG) Pt will be able to complete SLS from 20 surface B to improve safety with stair climbing. LTG Duration 8 weeks Single leg balance Impairment Pt has limited ability to balance single leg L>R Short Term Goal (STG) Pt will be able to balance for 40 sec on R leg and 20 sec on L without handhold support. 08/21/19- 56 sec R leg, 42 sec L leg SLS. Met goal STG Duration 4 weeks Quality Improvement Manager Goal (LTG) 09/12: SLS on R = >50 secs : L = 40 secs. ll be able to balance for 45 sec on each leg without handhold support to improve safety with mobility and ambulation. LTG Duration 8 weeks Hamstring tension Impairment Pt complains of tension and radiating pain into hamstrings Short Term Goal (STG) 09/12= goal met PT is able to reasch full knee extension bilaterally at slump test. Pt will be able to achieve full knee extension in slump position and perform hip hinge without reporting hamstring tension. STG Duration 4 weeks Skilled Nursing Goal (LTG) Pt will be able to complete ADLs with reports of <3/10 hamstring tension to improve tolerance for regular activities. LTG Duration 8 weeks Assessment Summary Assessment Pt cont to show improved isolated lumbar movements. 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 Pt cont demonstrated limited L ankle and hip stability and LLE strength. Pt will cont benefit from skilled therapy to strengthen his left LE and single leg balance. Physical Therapy Plan Next Visit Focus/Plan Next Note Type Treatment Note Next Visit Plan monitor pt's tolerance to HEP ankle and hip stability, step up and down single leg strengthening
--- NOTE | 2019-09-19 09:47 | PT.OTN ---
Current Diagnoses Cerebral infarction, unspecified (09/19/19) Physical Therapy Treatment Note PT-OP-A Visit Information Start: 08/10/19 08:12 Freq: Status: Active Protocol: Document 09/19/19 09:05 (Rec: 09/19/19 09:46 [id number]) Out-Patient Physical Therapy Visit Information Visit Information Visit Type Treatment Note Visit Note tx session led by Lara. Visit Start Time 09:05 Visit Stop Time 09:45 Total Visit Minutes 40 Visit Number 07/06 Number of POACHER OPERATOR Visits 0 PT-OP-B Current Condition Start: 08/10/19 08:12 Freq: Status: Active Protocol: Document 08/10/19 10:35 HH (Rec: 08/10/19 12:09 [id number]) Current Condition History of Current Condition Onset Date 07/07/19 Current Complaints s/p minor CVA, decreased balance, strength and difficulty in walking History of Current Condition Pt is a 68 yo male who was admitted to ER at [facility] due to worst headache at the base of his head on , along wit nausea and vomiting. CT revealed acute diffuse subarachnoid hemorrhage. Pt said he was recovered quick from hospitalization until today. His primary c/o was decreased balance, strength and difficulty in walking. He used walker at first and progressed to be an independent ambulator. He also has c/o constant tightness at back of his head and frontal part and B hamstrings. Pt stated he is very high functional at this point and no much of deficits but want to see if participating PT will discover any deficits. Pt currently follows post CVA restrictions with no heavy lifting >5lbs, No sports, twisting, pulling, bending or operating heavy machinery until cleared by neurosurgeon. hamstring tightness, headache Prior Treatments and Tests PMH- C3-4 fx s/p C3-4 anterior cervical diskectomy and fusion in jun 2018 Future Testing and Treatments Planned Pt will see neurosurgeon in Nov. Treatment Goals Patient/Caregiver Goals 1. To improve his overall balance 2. To improve his posterior chain flexibility 3. To strengthen B LEs Prior Functional Status Baseline Function- ADL's Independent Baseline Function- Mobility Independent Baseline Function- Other Patient reports full independence prior to SAH. Current Functional Impairments (Reported) Functional Limitations- ADL's Pt reports independent with ADLs Functional Limitations- Mobility/Gait Pt reports requiring walker for mobility and ambulation initially after d/c from hospital but was then able to transition to a cane and then to no AD for short distance ambulation. Pt reports a limitation in the distance he can ambulate. Functional Limitations- Work/School Pt is retired. Functional Limitations- Other Limitations in IADLs and recreational activities d/t cont lifting and bending/ twisting restrictions. Pt notes that he still needs to use hand rails for stairs d/t feeling weak and off balance. Personal Factors Other Personal Factors That May Effect previous cervical sx 1 year Therapy/Recovery ago. PT-OP-C Subjective Start: 08/10/19 08:12 Freq: Status: Active Protocol: Document 09/19/19 09:05 HH (Rec: 09/19/19 09:46 HH [id number]) OP-PT Subjective Patient Comments Patient Comments Pt went to see his neurologist They are not worried about me getting another stroke. Everything looks good and there's no restriction for my activity now. I am doing good in general just my strength still needs time to get better . Patient Reported Progress Improving PT-OP-D Balance Start: 08/10/19 08:12 Freq: Status: Active Protocol: Document 08/10/19 10:35 HH (Rec: 08/10/19 12:09 HH [id number]) OP-PT Balance Assessment Sitting Balance Static Sitting Balance Ability Normal Dynamic Sitting Balance Ability Good Standing Balance Static Standing Balance Ability Good Dynamic Standing Balance Ability Fair Balance Tests Single Limb Standing Single Limb- Right 33 Single Limb- Left 7 Other Other Balance Tests Performed excessive lateral hip sway while standing on LLE Garcia Fall Scale Copyright Permission PT-OP-E Functional Tests Start: 08/10/19 08:12 Freq: Status: Active Protocol: Document 08/14/19 15:25 SP (Rec: 08/14/19 15:49 SP [id number]) Functional Tests 6 Minute Walk Test Distance 1292 Device Used 0 Comments slight wt shift x1 to R wide turning 1 corner no LOB Dynamic Gait Index (DGI) Score 23/24 DGI Impairment Rating 1 to <20% Impaired (Score 20- 23) Functional Gait Assessment Score 25/30 Functional Gait Assessment Impairment 1 to <20% Impaired (Score 25- Rating 29) PT-OP-H Neuro Start: 08/10/19 08:12 Freq: Status: Active Protocol: Document 08/10/19 10:35 (Rec: 08/10/19 12:09 [id number]) Sensation Evaluation Gross Sensation Gross Sensation WNL Coordination Evaluation Upper Extremity Tests Right Finger to Nose Test Normal Performance Finger to Therapist's Finger Test Minimal Impairment Pronation/Supination Test Normal Performance Left Finger to Nose Test Minimal Impairment Finger to Therapist's Finger Test Minimal Impairment Pronation/Supination Test Normal Performance Lower Extremity Tests Right Alternate Heel to Knee; Heel to Toe Test Normal Performance Heel on Magdaleno Test Normal Performance Foot Tapping Test Normal Performance Left Alternate Heel to Knee; Heel to Toe Test Normal Performance Heel on Magdaleno Test Minimal Impairment Foot Tapping Test Normal Performance Deep Tendon Reflex & Clonus Assessment Deep Tendon Reflex Bilateral Achilles Deep Tendon Reflex 2+ Normal Bilateral Patellar Deep Tendon Reflex 2+ Normal Ankle Clonus Bilateral Clonus Assessment Absent PT-OP-L Special Tests Start: 08/10/19 08:12 Freq: Status: Active Protocol: Document 08/10/19 10:35 (Rec: 08/10/19 12:09 [id number]) Special Tests Neural Special Tests- Lower Body SLR Test Results B + sx reproduction, (-) sensitization Other Special Tests Special Tests single leg squat R= 22 inches L= 25 inches Hamstring length 90/90 test: B 45/90 with + sx reproduction PT-OP-M Strength Start: 08/10/19 08:12 Freq: Status: Active Protocol: Document 08/10/19 10:35 (Rec: 08/10/19 12:09 [id number]) Elbow/Forearm Strength Elbow and Forearm Manual Muscle Testing Right Flexion (C6) 4 Good Extension (C7) 4 Good Left Flexion (C6) 5 Normal Extension (C7) 5 Normal Wrist Strength Wrist Manual Muscle Testing Right Flexion (C7) 4 Good Extension (C6) 4 Good Left Flexion (C7) 5 Normal Extension (C6) 5 Normal Hip Strength Hip Manual Muscle Testing Right Flexion (L2) 4 Good Extension (S1) 5 Normal Abduction 5 Normal Adduction 5 Normal Left Flexion (L2) 4- Good- Extension (S1) 4+ Good+ Abduction 4 Good Adduction 4 Good Knee Strength Knee Manual Muscle Testing Left Flexion (S2) 5 Normal Extension (L3) 5 Normal Right Flexion (S2) 5 Normal Extension (L3) 5 Normal PT-OP-Q Treatments Start: 08/10/19 08:12 Freq: Status: Active Protocol: Document 09/19/19 09:05 (Rec: 09/19/19 09:46 [id number]) Gym Equipment Shuttle Balance red Details WBOS without UE support Reps/Duration 4 mins Comments tennis ball toss Therapeutic Exercises Sitting Exercises seated pelvic tilt Side bilateral Equipment Used red austrian ball Reps/Minutes 6 mins Comments hands block on T/S movements Standing Exercises step up Standing Exercise Name without support; alternate feet. Side bilateral Equipment Used 8 inch step Reps/Minutes 6 x 3 aníbal curl Side bilateral Equipment Used 3lbs DB x 2 Reps/Minutes 5 x 5 Comments cues on segmental flexion standing pelvic tilt Side bilateral Reps/Minutes 3 mins Comments isolated APT and PPT. sit to stand Standing Exercise Name 5 inch box underneath non working leg Side bilateral Reps/Minutes 6 x2 Comments cues on increasing weight shift on working LE Neuro Re-Education Treatment Balance Activities sliders Details single leg stance balance training Surface ground level Equipment slider Reps/Duration 10 slides each direction x 4 Comments fwd and bwd slide with slider and contralateral leg (SLS) at athletic position. Add green foam after. PT-OP-T Assessment and Plan Start: 08/10/19 08:12 Freq: Status: Active Protocol: Document 09/19/19 09:05 (Rec: 09/19/19 09:46 [id number]) Physical Therapy Assessment Goals Single leg squat Impairment Pt has impaired strength in LEs L>R Short Term Goal (STG) 09/12 : R= 22 inch; L=24 Pt will be able to complete SLS from 22 surface bilaterally STG Duration 4 weeks Guest Relations Representative Goal (LTG) Pt will be able to complete SLS from 20 surface B to improve safety with stair climbing. LTG Duration 8 weeks Single leg balance Impairment Pt has limited ability to balance single leg L>R Short Term Goal (STG) Pt will be able to balance for 40 sec on R leg and 20 sec on L without handhold support. 08/21/19- 56 sec R leg, 42 sec L leg SLS. Met goal STG Duration 4 weeks Skilled Nursing Goal (LTG) 09/12: SLS on R = >50 secs : L = 40 secs. ll be able to balance for 45 sec on each leg without handhold support to improve safety with mobility and ambulation. LTG Duration 8 weeks Hamstring tension Impairment Pt complains of tension and radiating pain into hamstrings Short Term Goal (STG) 09/12= goal met PT is able to reasch full knee extension bilaterally at slump test. Pt will be able to achieve full knee extension in slump position and perform hip hinge without reporting hamstring tension. STG Duration 4 weeks Guest Relations Representative Goal (LTG) Pt will be able to complete ADLs with reports of <3/10 hamstring tension to improve tolerance for regular activities. LTG Duration 8 weeks HEP Impairment Pt does not have HEP Short Term Goal (STG) 08/21/19- Progressing in HEP. Skilled Nursing Goal (LTG) Pt will demonstrate HEP safely and independently to improve functional mobility and return to regular recreational activities. LTG Duration 8 weeks Assessment Summary Assessment Pt is now cleared by neurologist for activity limitation. (act as asif) Tx focused on LE strengthening and balance training today. Physical Therapy Plan Next Visit Focus/Plan Next Note Type Treatment Note Next Visit Plan monitor pt's tolerance to HEP ankle and hip stability, step up and down single leg strengthening
--- NOTE | 2019-09-26 09:38 | PT.OTN ---
Current Diagnoses Cerebral infarction, unspecified (09/26/19) Physical Therapy Treatment Note PT-OP-A Visit Information Start: 08/10/19 08:12 Freq: Status: Active Protocol: Document 09/26/19 09:00 (Rec: 09/26/19 09:37 [id number]) Out-Patient Physical Therapy Visit Information Visit Information Visit Type Discharge Summary Visit Note tx session led by Lara. Visit Start Time 09:00 Visit Stop Time 09:40 Total Visit Minutes 40 Visit Number 08/05 Number of TENNIS CAMP INSTRUCTOR Visits 0 PT-OP-B Current Condition Start: 08/10/19 08:12 Freq: Status: Active Protocol: Document 08/10/19 10:35 HH (Rec: 08/10/19 12:09 [id number]) Current Condition History of Current Condition Onset Date 07/07/19 Current Complaints s/p minor CVA, decreased balance, strength and difficulty in walking History of Current Condition Pt is a 68 yo male who was admitted to ER at [facility] due to worst headache at the base of his head on , along wit nausea and vomiting. CT revealed acute diffuse subarachnoid hemorrhage. Pt said he was recovered quick from hospitalization until today. His primary c/o was decreased balance, strength and difficulty in walking. He used walker at first and progressed to be an independent ambulator. He also has c/o constant tightness at back of his head and frontal part and B hamstrings. Pt stated he is very high functional at this point and no much of deficits but want to see if participating PT will discover any deficits. Pt currently follows post CVA restrictions with no heavy lifting >5lbs, No sports, twisting, pulling, bending or operating heavy machinery until cleared by neurosurgeon. hamstring tightness, headache Prior Treatments and Tests PMH- C3-4 fx s/p C3-4 anterior cervical diskectomy and fusion in jun 2018 Future Testing and Treatments Planned Pt will see neurosurgeon in Nov. Treatment Goals Patient/Caregiver Goals 1. To improve his overall balance 2. To improve his posterior chain flexibility 3. To strengthen B LEs Prior Functional Status Baseline Function- ADL's Independent Baseline Function- Mobility Independent Baseline Function- Other Patient reports full independence prior to SAH. Current Functional Impairments (Reported) Functional Limitations- ADL's Pt reports independent with ADLs Functional Limitations- Mobility/Gait Pt reports requiring walker for mobility and ambulation initially after d/c from hospital but was then able to transition to a cane and then to no AD for short distance ambulation. Pt reports a limitation in the distance he can ambulate. Functional Limitations- Work/School Pt is retired. Functional Limitations- Other Limitations in IADLs and recreational activities d/t cont lifting and bending/ twisting restrictions. Pt notes that he still needs to use hand rails for stairs d/t feeling weak and off balance. Personal Factors Other Personal Factors That May Effect previous cervical sx 1 year Therapy/Recovery ago. PT-OP-C Subjective Start: 08/10/19 08:12 Freq: Status: Active Protocol: Document 09/26/19 09:00 HH (Rec: 09/26/19 09:37 [id number]) OP-PT Subjective Patient Comments Patient Comments I think im 95% recovered since my stroke. Im ready to be discharged Patient Reported Progress Improving PT-OP-D Balance Start: 08/10/19 08:12 Freq: Status: Active Protocol: Document 09/26/19 09:00 HH (Rec: 09/26/19 09:37 [id number]) Balance Tests Single Limb Standing Single Limb- Right >60 Single Limb- Left >60 (excessive ankle strategy) PT-OP-E Functional Tests Start: 08/10/19 08:12 Freq: Status: Active Protocol: Document 09/26/19 09:00 HH (Rec: 09/26/19 09:37 [id number]) Functional Tests Other single leg squat Name of Test from table without support Comment BLE=20s from surface, L is slightly unsteady PT-OP-H Neuro Start: 08/10/19 08:12 Freq: Status: Active Protocol: Document 08/10/19 10:35 HH (Rec: 08/10/19 12:09 [id number]) Sensation Evaluation Gross Sensation Gross Sensation WNL Coordination Evaluation Upper Extremity Tests Right Finger to Nose Test Normal Performance Finger to Therapist's Finger Test Minimal Impairment Pronation/Supination Test Normal Performance Left Finger to Nose Test Minimal Impairment Finger to Therapist's Finger Test Minimal Impairment Pronation/Supination Test Normal Performance Lower Extremity Tests Right Alternate Heel to Knee; Heel to Toe Test Normal Performance Heel on Magdaleno Test Normal Performance Foot Tapping Test Normal Performance Left Alternate Heel to Knee; Heel to Toe Test Normal Performance Heel on Magdaleno Test Minimal Impairment Foot Tapping Test Normal Performance Deep Tendon Reflex & Clonus Assessment Deep Tendon Reflex Bilateral Achilles Deep Tendon Reflex 2+ Normal Bilateral Patellar Deep Tendon Reflex 2+ Normal Ankle Clonus Bilateral Clonus Assessment Absent PT-OP-L Special Tests Start: 08/10/19 08:12 Freq: Status: Active Protocol: Document 08/10/19 10:35 HH (Rec: 08/10/19 12:09 [id number]) Special Tests Neural Special Tests- Lower Body SLR Test Results B + sx reproduction, (-) sensitization Other Special Tests Special Tests single leg squat R= 22 inches L= 25 inches Hamstring length 90/90 test: B 45/90 with + sx reproduction PT-OP-M Strength Start: 08/10/19 08:12 Freq: Status: Active Protocol: Document 08/10/19 10:35 HH (Rec: 08/10/19 12:09 [id number]) Elbow/Forearm Strength Elbow and Forearm Manual Muscle Testing Right Flexion (C6) 4 Good Extension (C7) 4 Good Left Flexion (C6) 5 Normal Extension (C7) 5 Normal Wrist Strength Wrist Manual Muscle Testing Right Flexion (C7) 4 Good Extension (C6) 4 Good Left Flexion (C7) 5 Normal Extension (C6) 5 Normal Hip Strength Hip Manual Muscle Testing Right Flexion (L2) 4 Good Extension (S1) 5 Normal Abduction 5 Normal Adduction 5 Normal Left Flexion (L2) 4- Good- Extension (S1) 4+ Good+ Abduction 4 Good Adduction 4 Good Knee Strength Knee Manual Muscle Testing Left Flexion (S2) 5 Normal Extension (L3) 5 Normal Right Flexion (S2) 5 Normal Extension (L3) 5 Normal PT-OP-Q Treatments Start: 08/10/19 08:12 Freq: Status: Active Protocol: Document 09/26/19 09:00 HH (Rec: 09/26/19 09:37 [id number]) Cardio Equipment Recumbent Stepper (Sci-Fit) Duration (Minutes) 5 Resistance 5 Therapeutic Exercises Supine Exercises sciatic nerve floss Side bilateral Reps/Minutes 5x2 Comments HEP review Sitting Exercises single leg squat from chair Side bilateral Reps/Minutes 4' block Comments HEP review Standing Exercises step up Standing Exercise Name without support; alternate feet. Side bilateral Equipment Used 10 inch step Reps/Minutes 8 x 2 crab walk Equipment Used yellow band Reps/Minutes 20 ft x 2 Comments band at knee; ankles Self-Care/Home Management Treatment Education Patient Education Home Exercise Program Other Education dis. with pt to participate gym program at [facility] for maintainence of physical fitness. Rec swimming to improve cardiovascular health. PT-OP-T Assessment and Plan Start: 08/10/19 08:12 Freq: Status: Active Protocol: Document 09/26/19 09:00 HH (Rec: 09/26/19 09:37 HH [id number]) Physical Therapy Assessment Goals Single leg squat Impairment Pt has impaired strength in LEs L>R Short Term Goal (STG) 09/12 : R= 22 inch; L=24 Pt will be able to complete SLS from 22 surface bilaterally STG Duration 4 weeks Credit Verification Clerk Goal (LTG) 09/26 goal met: Pt is be able to complete SLS from 20 surface B to improve safety with stair climbing. LTG Duration 8 weeks Single leg balance Impairment Pt has limited ability to balance single leg L>R Short Term Goal (STG) Pt will be able to balance for 40 sec on R leg and 20 sec on L without handhold support. 08/21/19- 56 sec R leg, 42 sec L leg SLS. Met goal STG Duration 4 weeks Credit Verification Clerk Goal (LTG) Goal met 09/26 : B LEs SLS > 60s without support LTG Duration 8 weeks Hamstring tension Impairment Pt complains of tension and radiating pain into hamstrings Short Term Goal (STG) 09/12= goal met PT is able to reasch full knee extension bilaterally at slump test. Pt will be able to achieve full knee extension in slump position and perform hip hinge without reporting hamstring tension. STG Duration 4 weeks Correction Goal (LTG) 09/26 goal met: no c/o back /buttock pain during full slump test. LTG Duration 8 weeks HEP Impairment Pt does not have HEP Short Term Goal (STG) 08/21/19- Progressing in HEP. Correction Goal (LTG) 09/26 pt is compliant to HEP LTG Duration 8 weeks Progress Towards Goals Progress Towards Goals Goals Met Assessment Summary Assessment Pt has met all rehab goals without any discomfort. He showed improved single leg strength, single leg balance and neural tension. Pt reports he is 95% recovered and agreed to be d/c from PT. Encouraged pt to participate gym program for maintainence. Physical Therapy Plan Discharge Physical Therapy Discharge Reasons Goals Met
== END 2019-10-13 11:48 ==
LOC: PHYS 09:00
PROVIDERS: PCP Family Medicine; Visit Provider Family Medicine
DX: I63.9 Cerebral infarction, unspecified (principal)
CPT/HCPCS: 97110; 97112; 97116; 97140; 97161; 97530; 97535

== ENCOUNTER 2021-08-07 00:58 | Emergency (ER) | payer MEDICARE, OTHER, SELFPAY ==
[2021-08-07 01:17] VITALS: BP 178/82; PULSE 74; RESP 15; TEMP 36.5; O2SAT 99; BMI 22.8
--- NOTE | 2021-08-07 02:12 | ED.EAR ---
HPI - Ear Problem General Chief complaint: Ear Stated complaint: tapping feeling/sound on left side of head Time Seen by Provider: 08/07/21 01:54 Source: patient Mode of arrival: Ambulatory Limitations: no limitations History of Present Illness HPI Narrative: 70-year-old gentleman on no current medications with a history of a prior stroke, no residual symptoms, occasional tinnitus presents tonight with an odd noise in his ear that he 1st noticed around 530 this evening. Describes it as a tapping rapid clicking type noise that is not associated with his heart rate/Pulse. Denies fever, cough, chills, decreased hearing, ear pain, throat pain, difficulty with jaw or TMJ. No palpitations, chest pain abdominal pain vomiting or diarrhea. Related Data Home Medications Medication Instructions Recorded Confirmed bupropion HCl 150 mg 24 hr tablet, 300 mg PO QDAY #0 02/01/12 12/02/19 extended release (Wellbutrin XL) ACETAMINOPHEN (#TYLENOL) 1,000 mg PO Q4HP #0 03/29/13 12/02/19 NAPROXEN (NAPROSYN) 250 mg PO Q12H #0 03/29/13 12/02/19 meloxicam 15 mg tablet 15 mg PO QDAY #0 08/11/16 12/02/19 Previous Rx's Medication Instructions Recorded meloxicam 7.5 mg tablet (Mobic) 7.5 mg PO BID PRN #20 tab 07/15/18 Allergies Allergy/AdvReac Type Severity Reaction Status Date / Time aspirin [ASPIRIN] AdvReac Mild STUFFY Unverified 12/02/19 11:51 NOSE, WATERING EYES Review of Systems Review of Systems Narrative: Remainder of complete review of systems is otherwise unremarkable except for that included in the HPI. Patient History Medical History Healthy adult History of stroke Tinnitus Social History Smoking Status: Former smoker Smoking Status: Former smoker alcohol intake frequency: a few times a week Substance Use Type: marijuana Exam Narrative Exam Narrative: General: Healthy appearing, in no acute distress. Able to give a complete and coherent history. Well-nourished well-developed HEENT: Moist mucous membranes, normal sclera with reactive pupils, left tympanic membrane and ear canal are entirely within normal limits. No evidence of any bug or other foreign body in the ear canal. No pharyngeal erythema. Neck: No cervical adenopathy, supple Respiratory: Lungs are clear to auscultation, no wheezing no rales no rhonchi. Full and symmetrical air movement Cardiac: Regular rate and rhythm no murmurs no bruits Skin: Warm and dry, no rashes Neurologic: Grossly neurologically intact with no obvious asymmetries or abnormalities Psych: Cooperative, appropriate insight and affect Initial Vital Signs Initial Vital Signs: Vital Signs Temperature 97.7 F 08/07/21 01:17 Pulse Rate 74 08/07/21 01:17 Respiratory Rate 15 08/07/21 01:17 Blood Pressure 178/82 H 08/07/21 01:17 Pulse Oximetry 99 08/07/21 01:17 Course Vital Signs Vital signs: Vital Signs - 8 hr 08/07/21 01:17 Temperature 97.7 F Pulse Rate 74 Respiratory Rate 15 Blood Pressure 178/82 H Pulse Oximetry 99 Medical Decision Making [facility] Narrative Medical decision making narrative: 70-year-old gentleman with approximately 6 hours of a tapping clicking sensation in his left ear this evening. This is different than the typical tinnitus that he has experienced before. Was not painful there is no foreign body or bug in the ear. By the time I have a chance to examine him symptoms have completely resolved. At this time, there is no evidence of barotrauma, trauma to the ear canal in any way, infection, posterior pharynx abnormalities or foreign bodies. Reassurance is given and he is safe for home discharge Discharge Plan Departure Patient Disposition: Home Clinical Impression: Ear clicks Qualifiers: Laterality: left Qualified Code(s): H93.12 - Tinnitus, left ear Activity Restrictions/Additional Instructions: Thank you for coming in today Your exam is very reassuring. You do not have a buggy in your ear to cause the irritating noise that your appreciating most of the afternoon. This is not a sign of a stroke and there is no sign of upper respiratory infection. I suspect that the noise was related to some type of muscle spasm either in the middle or inner ear. If this happens again, certainly try increasing the ambient noise such as loud fan or sounds of the ocean, rain wind and see if it helps so that the clicking/tapping noise is less bothersome. If this continues to be a problem, following up with an azure principal solution specialist might be helpful. I wish you the best Prescriptions: No Action bupropion HCl [Wellbutrin XL] 150 MG tablet extended release 24 hr 300 mg PO QDAY Qty: 0 RF: 0 NAPROXEN (NAPROSYN) 250 mg PO Q12H Qty: 0 RF: 0 ACETAMINOPHEN (#TYLENOL) 1,000 mg PO Q4HP Qty: 0 RF: 0 meloxicam 15 MG tablet 15 mg PO QDAY Qty: 0 RF: 0 meloxicam [Mobic] 7.5 mg tablet 7.5 mg PO BID PRN (Reason: pain) Qty: 20 RF: 0 Referrals: Lobito Lara MD [Primary Care Provider] -
== END 2021-08-07 02:23 | disposition home or self-care (01) ==
PROVIDERS: Emergency Provider Emergency Medicine; PCP Family Medicine
DX: H93.12 Tinnitus, left ear (principal)
CPT/HCPCS: 99281

== ENCOUNTER → 2022-01-23 08:27 | Outpatient (CLI) | payer MEDICARE, OTHER, SELFPAY ==
[2022-01-23 09:39] LABS: Add Manual Diff / Slide Review NO; Basophils Absolute Auto 0 /uL (0-100); Basophils Percent Auto 0.6 % (0-2); Eosinophils Absolute Auto 100 /uL (0-450); Eosinophils Percent Auto 2.7 % (2-4); Hematocrit 42.3 % (41-53); Hemoglobin 14.7 g/dL (13.5-17.5); Lymphocytes Absolute Auto 2000 /uL (1100-4500); Lymphocytes Percent Auto 41.2 % (25-40); Mean Corpuscular HGB Conc 34.8 % (30-36); Mean Corpuscular Hemoglobin 32.1 PG (26-34); Mean Corpuscular Volume 92.4 fL (80-100); Monocytes Absolute Auto 600 /uL (0-900); Monocytes Percent Auto 13.3 % (3-14); Neutrophils Absolute Auto 2000 /uL (1500-7000); Neutrophils Percent Auto 42.2 % (50-75); Platelet Count 176 X10^3/uL (150-400); Red Blood Cell Count 4.58 X10^6/uL (4.5-5.9); Red Cell Distribution Width 12.6 % (11.6-14.8); White Blood Cell Count 4.8 X10^3/uL (4.5-11.0)
[2022-01-23 09:49] LABS: Alanine Aminotransferase 20 IU/L (<50); Albumin 4.1 g/dL (3.5-5.0); Albumin Globulin Ratio 1.9 (1.0-2.8); Alkaline Phosphatase 52 U/L (38-126); Aspartate Aminotransferase 27 IU/L (17-59); BUN Creatinine Ratio 23.2 (6-22); Blood Urea Nitrogen 22 mg/dL (9-20); Calcium 8.5 mg/dL (8.4-10.2); Carbon Dioxide 29 mmol/L (22-32); Chloride 106 mmol/L (98-107); Cholesterol 135 mg/dL (140-199); Estimated Glomerular Filt Rate > 60.0 mL/min (>60); Globulin 2.2 g/dL (1.7-4.1); Glucose 86 mg/dL (80-110); HDL Cholesterol 35 mg/dL (40-60); HEMOLYSIS < 15 (0-50); LDL Cholesterol Calculated 83 mg/dL (<100); Potassium 4.3 mmol/L (3.4-5.1); Sodium 141 mmol/L (137-145); Total Protein 6.3 g/dL (6.3-8.2); Triglycerides 86 mg/dL (35-150)
[2022-01-23 10:19] LABS: Prostate Specific Antigen Scrn 1.43 ng/mL (0.1-4.0)
[2022-01-23 10:20] LABS: TSH w/ Reflex to FT4 1.51 uIU/mL (0.47-4.68)
== END ==
PROVIDERS: PCP Family Medicine; Referring Provider Family Medicine; Visit Provider Family Medicine
DX: E78.5 Hyperlipidemia, unspecified (principal); Z12.5 Encounter for screening for malignant neoplasm of prostate; R91.8 Other nonspecific abnormal finding of lung field; J45.909 Unspecified asthma, uncomplicated; I60.9 Nontraumatic subarachnoid hemorrhage, unspecified; M47.896 Other spondylosis, lumbar region
CPT/HCPCS: 36415; 80053; 80061; 84443; 85025; G0103

== ENCOUNTER → 2022-01-29 10:08 | Outpatient (CLI) | payer MEDICARE, OTHER, SELFPAY ==
--- NOTE | 2022-01-29 | DI.CT.S_ITS ---
PROCEDURE: CT CHEST WO CON INDICATIONS: LUNG NODULE TECHNIQUE: Noncontrast 5 mm thick sections acquired from the pulmonary apices to the posterior costophrenic angles. 1 mm lung window, 5 mm thick coronal and sagittal and 7 mm axial MIP reformats were then acquired. For radiation dose reduction, the following was used: automated exposure control, adjustment of mA and/or kV according to patient size. COMPARISON: Outside Facility, RG, CT THORAX W/O CONTRAST, 07/12/2019, 17:16. FINDINGS: Image quality: Excellent. Lungs and pleura: 5 mm subpleural nodule in the left lung base series 3, image 305 is unchanged compared to 07/12/2019 and is presumed benign given long-term stability. No acute air space opacities. No pleural effusions or pneumothorax. Stable scarring in the lung bases bilaterally. Central and peripheral airways are patent and normal in caliber. Mediastinum: Heart size is normal. The coronary arteries have atherosclerotic calcifications. No pericardial effusion. No mediastinal adenopathy by size criteria. Thoracic aorta and central pulmonary arteries are normal in size. Esophagus is normal in caliber. No hiatal hernia. Bones and chest wall: No suspicious bony lesions. No vertebral body compression fractures. No axillary or supraclavicular adenopathy by size criteria. Thyroid gland is normal. The L1 vertebral body has a stable benign hemangioma. Abdomen: Visualized upper abdominal solid organs and bowel loops appear normal in the absence of contrast. IMPRESSION: LUNG-RADS 1. No nodules or definitely benign nodules; continue annual screening with low-dose CT. Dictated by: Stan Carey M.D. on 01/29/2022 at 16:24 Approved by: Stan Carey M.D. on 01/29/2022 at 16:32
== END ==
PROVIDERS: PCP Family Medicine; Referring Provider Family Medicine; Visit Provider Family Medicine
DX: R91.1 Solitary pulmonary nodule (principal)
CPT/HCPCS: 71250

== ENCOUNTER 2022-12-18 00:42 | Emergency (ER) | payer MEDICARE, OTHER, SELFPAY ==
[2022-12-18 01:00] VITALS: BP 162/78; PULSE 82; RESP 18; TEMP 36.2; O2SAT 98; BMI 24.4
--- NOTE | 2022-12-18 02:38 | ED.SKABFB ---
HPI - Skin/Abscess/Foreign Bdy General Chief complaint: Skin/Abscess/Foreign Body Stated complaint: possible sinus infection Time Seen by Provider: 12/18/22 01:09 Source: patient Mode of arrival: Ambulatory Limitations: no limitations History of Present Illness HPI narrative: 72-year-old male former smoker with a history of subarachnoid hemorrhage presents with his in the chief complaint of a sudden onset of pain behind his left eye. He denies any trauma or injury. He denies any fever or chills nor neck pain. He has no neurologic symptoms such as blurred or double vision, numbness, tingling, weakness, trouble with speech. He is had no fever or chills. He denies nausea or vomiting. He denies any obvious provocation or palliation and states that the discomfort is significantly better now than when the symptoms started but he is concerned given his history. Related Data Home Medications Medication Instructions Recorded Confirmed bupropion HCl 150 mg 24 hr tablet, 300 mg PO QDAY ##0 02/01/12 12/02/19 extended release (Wellbutrin XL) ACETAMINOPHEN (#TYLENOL) 1,000 mg PO Q4HP ##0 03/29/13 12/02/19 NAPROXEN (NAPROSYN) 250 mg PO Q12H ##0 03/29/13 12/02/19 meloxicam 15 mg tablet 15 mg PO QDAY ##0 08/11/16 12/02/19 Previous Rx's Medication Instructions Recorded meloxicam 7.5 mg tablet (Mobic) 7.5 mg PO BID PRN pain #20 tabs 07/15/18 Allergies Allergy/AdvReac Type Severity Reaction Status Date / Time aspirin [ASPIRIN] AdvReac Mild STUFFY Unverified 12/02/19 11:51 NOSE, WATERING EYES Review of Systems Review of Systems Narrative: GENERAL: Denies chills, fatigue, malaise, fever, sweats. HEENT: Denies sinus pain, ear pain, sore throat, difficulty swallowing, dizziness. RESPIRATORY: Denies dyspnea, cough, wheezing, hemoptysis, sputum. CARDIOVASCULAR: Denies chest pain, palpitations, orthopnea, edema, GASTROINTESTINAL: Denies nausea, vomiting, abdominal pain, diarrhea, constipation, melena. : Denies dysuria, frequency, incontinence, hematuria, urinary retention. MUSCULOSKELETAL: denies weakness, joint pain, or bony pain SKIN: Denies rash, skin lesions, or other NEUROLOGIC: See HPI PSYCHIATRIC: No concerning psychosocial issues. 12 point review of systems is negative except for those stated above Patient History Medical History Healthy adult History of stroke Tinnitus Social History Smoking Status: Former smoker Smoking Status: Former smoker alcohol intake frequency: a few times a week Substance Use Type: marijuana Exam Narrative Exam Narrative: GENERAL: [72] year old patient appears stated age. Well-developed patient, in mild distress. HEAD: Atraumatic. Normocephalic. EYES: Pupils equal round and reactive. Extraocular motions intact. No scleral icterus. No injection or drainage. Visual acuity noted in nursing chart. Proparacaine instilled in eye, pressure left eye 16 mmHg, right eye 18 mmHg ENT: Nose without bleeding, purulent drainage. Throat without erythema, tonsillar hypertrophy or exudate. Airway patent. NECK: Trachea midline. Non tender CARDIOVASCULAR: Regular rate and rhythm without murmurs, gallops, or rubs. RESPIRATORY: Clear to auscultation. Breath sounds equal bilaterally. No wheezes, rales, or rhonchi. GASTROINTESTINAL: Abdomen soft, non-tender, nondistended. EXTREMITIES: No edema or joint tenderness. BACK: Nontender without deformity or crepitance. No flank tenderness. NEURO: AOx3. SKIN: No rash or erythema of visible areas NIH Stroke Scale 1a. LOC: Patient is alert and keenly responsive (0) 1b. LOC Questions: Patient answers both LOC questions accurately (0) 1c. LOC Commands: Patient performs both tasks correctly (0) 2. Best Gaze: Normal (0) 3. Visual: No visual loss (0) 4. Facial palsy: Normal symmetrical movements (0) 5. Motor arm: No drift (0) 6. Motor leg: No drift (0) 7. Limb ataxia: Absent (0) 8. Sensory: Normal (0) 9. Best language: No aphasia; normal (0) 10. Dysarthria: Normal (0) 11. Extinction and inattention: No abnormality (0) NIHSS: 0 Initial Vital Signs Initial Vital Signs: Vital Signs Temperature 97.1 F L 12/18/22 01:00 Pulse Rate 82 03/03/23 01:00 Respiratory Rate 18 12/18/22 01:00 Blood Pressure 162/78 H 12/18/22 01:00 Pulse Oximetry 98 12/18/22 01:00 Oxygen Delivery Method Room Air 12/18/22 01:00 Course Orders Ordered: Discontinued Medications Proparacaine HCl (Proparacaine 0.5% Ophth Gloria) 1 drops EYE-LEFT NOW ONE Stop: 12/18/22 01:24 Last Admin: 12/18/22 04:21 Dose: 1 bottle Documented By: AP Vital Signs Vital signs: Vital Signs - 8 hr 12/18/22 01:00 Temperature 97.1 F L Pulse Rate 82 Respiratory Rate 18 Blood Pressure 162/78 H Pulse Oximetry 98 Oxygen Delivery Method Room Air MDM - Skin/Abscess/Foreign Bdy Imaging Data CT scan - head: Radiologist's Impression: No acute process MDM Narrative Medical decision making narrative: CC: 72-year-old male with sudden onset left-sided headache Complicating co-morbidities: Age, prior intracranial hemorrhage Data collected from: Patient Medical records reviewed: Prior notes reviewed in our EMR Differential considered, but not limited to: Atypical headache, migraine, subarachnoid hemorrhage, acute angle closure glaucoma versus other Exam documented above, pertinent findings include: Normal NIH, intact extraocular hours, normal intra-ocular pressure, no vision change Imaging studies independently reviewed: Head CT without acute findings Scores Used: NIHSS Treatments: Proparacaine, Tylenol Re-evaluations: Patient with significant if not complete resolution symptoms after Tylenol. Discussion: Patient with a relatively sudden onset left-sided headache in the absence of trauma, fever, blood thinners or other symptoms. Significant if not complete resolution with Tylenol. Multiple diagnoses considered as noted above, however these are thought to be unlikely given lack of associated symptoms, reassuring head CT, normal intra-ocular pressure Headache considerations include, but not limited to: Subarachnoid hemorrhage, but unlikely as patient denies sudden onset of pain, not worst of life, or neck pain Meningitis considered, but thought unlikely given lack of Brudzinski's, Kernig's sign, altered mental status or fever Giant cell arteritis considered, but thought unlikely given lack of unilateral findings, pain in gnosticism, vision change HTN Emergency considered, but thought unlikely given normal vitals Other serious diagnoses considered unlikely given lack of red flag findings such as sudden onset, increasing frequency, immunocompromise, systemic signs (fever, chills, stiff neck, or rash), focal neurologic findings, trauma, blood thinners, etc. Disposition: see below, along with detailed discharge instructions that have been reviewed with patient as well as indications for ED re-evaluation and additional outpatient follow up Discharge Plan Departure Patient Disposition: Home Clinical Impression: Headache Instructions: DI for Headache Activity Restrictions/Additional Instructions: *You have been diagnosed with [headache. As we discussed your history and physical exam are reassuring, your CT scan has no significant findings.] *What to do: *Please continue to take your regular medications as directed. *Please follow up with your primary care provider in 2-3 days, call for an appointment. Let them know you were seen in the Emergency Department and that we ask that you be seen in follow up. We will electronically transmit a record of today's note if your PCP is in our system *If you do not have a primary care provider please contact the [facility] Resource line at [phone]. They will ask some questions about your medical history and help get you set up with a doctor in the community. *Return to Emergency Department if you should have any new, worsening or concerning symptoms, such as [fever greater than 101 F, shaking chills, worsening pain, persistent vomiting or other bothersome symptoms] Prescriptions: No Action bupropion HCl [Wellbutrin XL] 150 MG tablet extended release 24 hr 300 mg PO QDAY Qty: 0 NAPROXEN (NAPROSYN) 250 mg PO Q12H Qty: 0 ACETAMINOPHEN (#TYLENOL) 1,000 mg PO Q4HP Qty: 0 meloxicam 15 MG tablet 15 mg PO QDAY Qty: 0 meloxicam [Mobic] 7.5 mg tablet 7.5 mg PO BID PRN (Reason: pain) Qty: 20 0RF Referrals: Aakash Bishop MD [Primary Care Provider] - Stand Alone Forms: Patient Portal/API
--- NOTE | 2022-12-18 02:52 | DI.CT.S_ITS ---
PROCEDURE: CT HEAD/BRAIN WO CON INDICATIONS: headache, sudden behind left eye, prior SAH TECHNIQUE: Noncontrast 4.5 mm thick angled axial sections acquired from the foramen magnum to the vertex, with coronal and sagittal reformats. For radiation dose reduction, the following was used: automated exposure control, adjustment of mA and/or kV according to patient size. COMPARISON: [facility], CT, CT HEAD/BRAIN WO CON, 07/07/2019, 21:29. FINDINGS: Image quality: Excellent. CSF spaces: Basal cisterns are patent. No extra-axial fluid collections. The ventricles are symmetric in size and shape. Brain: No intracranial bleeds or masses. There is cerebral volume loss for age, with resultant ventricular and sulcal prominence. There are periventricular and deep white matter chronic small vessel ischemic changes. There is intracranial internal carotid artery atherosclerosis. Skull and face: Calvarium and visualized facial bones appear intact, without suspicious lesions. Sinuses: Redemonstration of mucous retention cysts/polyps within the left maxillary sinus and ethmoid sinuses. Remainder of the paranasal sinuses appear clear. Mastoid air cells are well-aerated. IMPRESSION: 1. CT head without acute intracranial abnormalities or acute calvarial fractures. 2. Age-related senescent changes and sequela of chronic small vessel ischemic disease. 3. Scattered ethmoid and left maxillary sinus disease No significant discrepancy with the nightclub manager radiology preliminary report. Dictated by: Sanchez Bean M.D. on 12/18/2022 at 7:03 Approved by: Sanchez Bean M.D. on 12/18/2022 at 7:06
[2022-12-18 04:08] VITALS: BP 146/67; PULSE 66; RESP 18; O2SAT 98
[2022-12-18] MEDS: PROPARACAINE 0.5% OPHTH SOL 1 DROPS EYE-LEFT (04:21)
== END 2022-12-18 04:09 | disposition home or self-care (01) ==
PROVIDERS: Emergency Provider Emergency Medicine; PCP Family Medicine
DX: R51.9 Headache, unspecified (principal)
CPT/HCPCS: 70450; 99283

== ENCOUNTER → 2023-09-01 11:04 | Outpatient (CLI) | payer MEDICARE, OTHER, SELFPAY ==
[2023-09-01 12:56] LABS: Alanine Aminotransferase 30 IU/L (<50); Albumin 4.2 g/dL (3.5-5.0); Albumin Globulin Ratio 1.6 (1.0-2.8); Alkaline Phosphatase 60 U/L (38-126); Aspartate Aminotransferase 30 IU/L (17-59); BUN Creatinine Ratio 25.3 (6-22); Bilirubin Total 0.8 mg/dL (0.2-1.3); Bilirubin Unconjugated 0.6 mg/dL (0.0-1.1); Blood Urea Nitrogen 23 mg/dL (9-20); Estimated Glomerular Filt Rate > 60 mL/min (>60); Globulin 2.6 g/dL (1.7-4.1); HEMOLYSIS < 15 (0-50); Total Protein 6.8 g/dL (6.3-8.2)
== END ==
PROVIDERS: PCP Family Medicine; Referring Provider Physician Assistant Medical; Visit Provider Physician Assistant Medical
DX: B35.1 Tinea unguium (principal)
CPT/HCPCS: 36415; 80076; 82565; 84520

== ENCOUNTER → 2023-11-05 11:22 | Outpatient (CLI) | payer MEDICARE, OTHER, SELFPAY ==
[2023-11-05 13:20] LABS: Alanine Aminotransferase 26 IU/L (<50); Albumin 4.3 g/dL (3.5-5.0); Albumin Globulin Ratio 1.7 (1.0-2.8); Alkaline Phosphatase 62 U/L (38-126); Aspartate Aminotransferase 26 IU/L (17-59); BUN Creatinine Ratio 22.3 (6-22); Bilirubin Total 0.7 mg/dL (0.2-1.3); Bilirubin Unconjugated 0.5 mg/dL (0.0-1.1); Blood Urea Nitrogen 23 mg/dL (9-20); Estimated Glomerular Filt Rate > 60 mL/min (>60); Globulin 2.5 g/dL (1.7-4.1); HEMOLYSIS < 15 (0-50); Total Protein 6.8 g/dL (6.3-8.2)
== END ==
PROVIDERS: PCP Family Medicine; Referring Provider Physician Assistant Medical; Visit Provider Physician Assistant Medical
DX: B35.1 Tinea unguium (principal)
CPT/HCPCS: 36415; 80076; 82565; 84520

== ENCOUNTER → 2024-01-03 08:32 | Outpatient (CLI) | payer MEDICARE, OTHER, SELFPAY ==
[2024-01-03 09:37] LABS: Add Manual Diff / Slide Review NO; Basophils Absolute Auto 0 /uL (0-100); Basophils Percent Auto 1.1 % (0-2); Eosinophils Absolute Auto 100 /uL (0-450); Eosinophils Percent Auto 2.6 % (2-4); Hematocrit 43.8 % (41-53); Lymphocytes Absolute Auto 1700 /uL (1100-4500); Lymphocytes Percent Auto 37.3 % (25-40); Mean Corpuscular HGB Conc 34.1 % (30-36); Mean Corpuscular Volume 93.8 fL (80-100); Monocytes Absolute Auto 700 /uL (0-900); Monocytes Percent Auto 15.4 % (3-14); Neutrophils Absolute Auto 2000 /uL (1500-7000); Neutrophils Percent Auto 43.6 % (50-75); Platelet Count 196 X10^3/uL (150-400); Red Blood Cell Count 4.67 X10^6/uL (4.5-5.9); Red Cell Distribution Width 13.2 % (11.6-14.8); White Blood Cell Count 4.5 X10^3/uL (4.5-11.0)
[2024-01-03 09:56] LABS: Alanine Aminotransferase 31 IU/L (<50); Albumin Globulin Ratio 1.5 (1.0-2.8); Alkaline Phosphatase 59 U/L (38-126); Aspartate Aminotransferase 32 IU/L (17-59); BUN Creatinine Ratio 14.9 (6-22); Bilirubin Total 0.9 mg/dL (0.2-1.3); Blood Urea Nitrogen 15 mg/dL (9-20); Calcium 8.9 mg/dL (8.4-10.2); Carbon Dioxide 32 mmol/L (22-32); Chloride 107 mmol/L (98-107); Cholesterol 144 mg/dL (140-199); Estimated Glomerular Filt Rate > 60 mL/min (>60); Globulin 2.7 g/dL (1.7-4.1); Glucose 96 mg/dL (80-110); HDL Cholesterol 34 mg/dL (40-60); HEMOLYSIS < 15 (0-50); LDL Cholesterol Calculated 95 mg/dL (<100); Potassium 4.8 mmol/L (3.4-5.1); Sodium 141 mmol/L (137-145); Total Protein 6.7 g/dL (6.3-8.2); Triglycerides 76 mg/dL (35-150)
[2024-01-03 10:27] LABS: Prostate Specific Antigen Scrn 1.45 ng/mL (0.1-4.0)
[2024-01-03 10:28] LABS: TSH w/ Reflex to FT4 2.16 uIU/mL (0.47-4.68)
== END ==
LOC: LAB 08:34
PROVIDERS: PCP Family Medicine; Referring Provider Family Medicine; Visit Provider Family Medicine
DX: N52.9 Male erectile dysfunction, unspecified (principal); Z12.5 Encounter for screening for malignant neoplasm of prostate; E78.5 Hyperlipidemia, unspecified; J45.909 Unspecified asthma, uncomplicated
CPT/HCPCS: 36415; 80053; 80061; 84443; 85025; G0103

== ENCOUNTER → 2024-01-15 10:42 | Outpatient (CLI) | payer MEDICARE, OTHER, SELFPAY ==
--- NOTE | 2024-01-15 | DI.CT.S_ITS ---
PROCEDURE: CT CHEST WO CON INDICATIONS: Other nonspecific abnormal finding of lung field TECHNIQUE: Noncontrast 2.0-2.5 mm thick sections acquired from the pulmonary apices to the posterior costophrenic angles. 7 mm thick axial MIP and 5 mm coronal and sagittal reformats were then acquired. For radiation dose reduction, the following was used: automated exposure control, adjustment of mA and/or kV according to patient size. COMPARISON: [facility], CT, CT CHEST WO CON, 01/29/2022, 10:14. FINDINGS: Image quality: Diagnostic. Lower Neck: No enlarged lymph nodes. Thyroid: No thyroid nodules which require sonographic follow up, per consensus guidelines. Axillae: No enlarged lymph nodes. Chest Wall: Unremarkable. Bones: Unremarkable. Lungs and Pleura: Patient's known 5 mm pleural base nodule in lateral left lung base is unchanged series 3, image 329. Scattered scarring/atelectasis in periphery of bilateral lower lung argueta are seen. No consolidations. No new pulmonary nodule is seen. No pneumothorax or pleural effusions. Heart: Heart size is normal. No pericardial effusion. Thoracic Vessels: The aorta and pulmonary arteries demonstrate normal size. Single-vessel coronary artery atherosclerotic disease is seen. Mediastinum and Neema: No enlarged lymph nodes. Esophagus: No wall thickening. There is a small hiatal hernia. Upper Abdomen: Visualized upper abdomen solid organs and bowel loops appear normal. IMPRESSION: 1. 5 mm subpleural nodule in lateral left lung base remains stable and is suggestive of benign process. No further follow-up is indicated at this time. 2. Scattered atelectasis at bilateral lower lung argueta. No new pulmonary nodule or mass. No pleural effusion or pneumothorax. 3. No mediastinal or hilar lymphadenopathy. Fleischner Society criteria for SOLID lung nodule followup. Nodule size (mm)Low-risk patientHigh-risk patient<6 (single or multiple)No routine followup.Optional CT at 12 months. 6-8 (single or multiple)CT at 6-12 months, then optional CT at 18-24 mo.CT at 6-12 months, then CT at 18-24 months. >8 (single)CT at 3 months, PET-CT, or biopsy. Same as for low-risk pts. >8 (multiple)CT at 3-6 months, then optional CT at 18-24 mo.CT at 3-6 months, then CT at 18-24 months. Fleischner Society criteria for SUB-SOLID lung nodule followup. Solitary pure ground-glass nodules<6 mm (ground glass or part solid)No followup needed. 6 mm or larger (ground glass)CT at 6-12 months to confirm persistence, then CT every 2 years until 5 years.6 mm or larger (part solid)CT at 3-6 months to confirm persistence, then annual CT until 5 years if unchanged and solid component remains <6 mm. Multiple sub-solid nodules<6 mmCT at 3-6 months, then CT consider at 2 & 4 years for high risk patients. [address] at 3-6 months. Subsequent management based on most suspicious lesions. Recommendations do not apply to lung cancer screening, patients with immunosuppression, or patients with known primary cancer. Dictated by: Diaz Ojeda M.D. on 01/16/2024 at 12:04 Approved by: Diaz Ojeda M.D. on 01/16/2024 at 13:08
== END ==
PROVIDERS: PCP Family Medicine; Referring Provider Family Medicine; Visit Provider Family Medicine
DX: J98.11 Atelectasis (principal); R91.1 Solitary pulmonary nodule; R91.8 Other nonspecific abnormal finding of lung field; I25.10 Atherosclerotic heart disease of native coronary artery without angina pectoris; K44.9 Diaphragmatic hernia without obstruction or gangrene
CPT/HCPCS: 71250

== ENCOUNTER → 2024-01-31 08:12 | Outpatient (CLI) | payer MEDICARE, OTHER, SELFPAY ==
[2024-01-31 09:33] LABS: Alanine Aminotransferase 30 IU/L (<50); Albumin 4.1 g/dL (3.5-5.0); Albumin Globulin Ratio 1.9 (1.0-2.8); Alkaline Phosphatase 65 U/L (38-126); Aspartate Aminotransferase 26 IU/L (17-59); BUN Creatinine Ratio 19.4 (6-22); Bilirubin Total 0.9 mg/dL (0.2-1.3); Bilirubin Unconjugated 0.8 mg/dL (0.0-1.1); Blood Urea Nitrogen 19 mg/dL (9-20); Estimated Glomerular Filt Rate > 60 mL/min (>60); Globulin 2.2 g/dL (1.7-4.1); HEMOLYSIS < 15 (0-50); Total Protein 6.3 g/dL (6.3-8.2)
== END ==
LOC: LAB 08:19
PROVIDERS: PCP Family Medicine; Referring Provider Physician Assistant Medical; Visit Provider Physician Assistant Medical
DX: B35.1 Tinea unguium (principal)
CPT/HCPCS: 36415; 80076; 82565; 84520

== ENCOUNTER → 2024-02-04 15:36 | Outpatient (CLI) | payer MEDICARE, OTHER, SELFPAY ==
--- NOTE | 2024-02-04 | DI.US.S_ITS ---
PROCEDURE: US ABDOMEN COMPLETE INDICATIONS: Other specified diseases of liver, cyst of kidney TECHNIQUE: Real-time scanning was performed of the abdominal and retroperitoneal organs, with image documentation. COMPARISON: None. FINDINGS: Liver: 14.8 cm in length. Hepatic steatosis. Gallbladder: Gallbladder wall measures 2 mm, within normal limits. No gallstones. Biliary ducts: Intrahepatic bile ducts are non-dilated. Extrahepatic bile duct caliber measures 3 mm. Normal is 6-7 mm or less in diameter, or 10 mm or less post-cholecystectomy. Pancreas: Not well visualized Spleen: Spleen is normal in size and homogeneous in echotexture. Kidneys: Kidneys are normal in size and echotexture. Right kidney measures 11.0 cm long; left kidney measures 12.1 cm long. No hydronephrosis or nephrolithiasis. No solid masses. 1.3 cm simple cyst in the lower pole of the left kidney. Aorta: Visualized aorta is normal in caliber at less than 3 cm. Iliacs: Proximal common iliac arteries are normal in caliber at less than 2.5 cm. IVC: Intrahepatic inferior vena cava is patent. Miscellaneous: No free abdominal fluid. IMPRESSION: Hepatic steatosis. Dictated by: Meenakshi Gage M.D. on 02/04/2024 at 17:44 Approved by: Meenakshi Gage M.D. on 02/04/2024 at 17:49
== END ==
LOC: US 15:37
PROVIDERS: PCP Family Medicine; Referring Provider Family Medicine; Visit Provider Family Medicine
DX: N28.1 Cyst of kidney, acquired (principal); K76.89 Other specified diseases of liver; K76.0 Fatty (change of) liver, not elsewhere classified
CPT/HCPCS: 76700

== ENCOUNTER → 2024-04-03 08:27 | Outpatient (CLI) | payer MEDICARE, OTHER, SELFPAY ==
[2024-04-03 09:47] LABS: Alanine Aminotransferase 22 IU/L (<50); Albumin Globulin Ratio 1.8 (1.0-2.8); Alkaline Phosphatase 55 U/L (38-126); Aspartate Aminotransferase 27 IU/L (17-59); BUN Creatinine Ratio 21.9 (6-22); Bilirubin Total 0.8 mg/dL (0.2-1.3); Bilirubin Unconjugated 0.4 mg/dL (0.0-1.1); Blood Urea Nitrogen 21 mg/dL (9-20); Estimated Glomerular Filt Rate > 60 mL/min (>60); Globulin 2.2 g/dL (1.7-4.1); HEMOLYSIS < 15 (0-50); Total Protein 6.2 g/dL (6.3-8.2)
== END ==
PROVIDERS: PCP Family Medicine; Referring Provider Physician Assistant Medical; Visit Provider Physician Assistant Medical
DX: B35.1 Tinea unguium (principal)
CPT/HCPCS: 36415; 80076; 82565; 84520

== ENCOUNTER → 2024-05-29 11:30 | Outpatient (CLI) | payer MEDICARE, OTHER, SELFPAY ==
[2024-05-29 12:38] LABS: Alanine Aminotransferase 23 IU/L (<50); Albumin 4.2 g/dL (3.5-5.0); Alkaline Phosphatase 64 U/L (38-126); Aspartate Aminotransferase 28 IU/L (17-59); BUN Creatinine Ratio 21.6 (6-22); Bilirubin Total 0.7 mg/dL (0.2-1.3); Bilirubin Unconjugated 0.3 mg/dL (0.0-1.1); Blood Urea Nitrogen 21 mg/dL (9-20); Estimated Glomerular Filt Rate > 60 mL/min (>60); Globulin 2.1 g/dL (1.7-4.1); HEMOLYSIS < 15 (0-50); Total Protein 6.3 g/dL (6.3-8.2)
== END ==
PROVIDERS: PCP Family Medicine; Referring Provider Physician Assistant Medical; Visit Provider Physician Assistant Medical
DX: B35.1 Tinea unguium (principal)
CPT/HCPCS: 36415; 80076; 82565; 84520

== ENCOUNTER → 2024-06-14 08:13 | Outpatient (CLI) | payer MEDICARE, OTHER, SELFPAY ==
[2024-06-14 09:39] LABS: Alanine Aminotransferase 39 IU/L (<50); Albumin 4.3 g/dL (3.5-5.0); Alkaline Phosphatase 69 U/L (38-126); Aspartate Aminotransferase 57 IU/L (17-59); Bilirubin Total 0.9 mg/dL (0.2-1.3); Bilirubin Unconjugated 0.5 mg/dL (0.0-1.1); Globulin 2.2 g/dL (1.7-4.1); HEMOLYSIS 25 (0-50); Total Protein 6.5 g/dL (6.3-8.2)
== END ==
PROVIDERS: PCP Family Medicine; Referring Provider Physician Assistant Medical; Visit Provider Physician Assistant Medical
DX: B35.1 Tinea unguium (principal)
CPT/HCPCS: 36415; 80076

== ENCOUNTER → 2024-08-24 09:48 | Outpatient (CLI) | payer MEDICARE, OTHER, SELFPAY ==
[2024-08-24 11:08] LABS: Alanine Aminotransferase 29 IU/L (<50); Albumin 4.2 g/dL (3.5-5.0); Albumin Globulin Ratio 1.9 (1.0-2.8); Alkaline Phosphatase 60 U/L (38-126); Aspartate Aminotransferase 29 IU/L (17-59); Bilirubin Unconjugated 0.8 mg/dL (0.0-1.1); Globulin 2.2 g/dL (1.7-4.1); HEMOLYSIS < 15 (0-50); Total Protein 6.4 g/dL (6.3-8.2)
== END ==
PROVIDERS: PCP Family Medicine; Referring Provider Physician Assistant Medical; Visit Provider Physician Assistant Medical
DX: B35.1 Tinea unguium (principal)
CPT/HCPCS: 36415; 80076

== ENCOUNTER → 2024-11-01 09:26 | Outpatient (CLI) | payer MEDICARE, OTHER, SELFPAY ==
[2024-11-01 10:17] LABS: Alanine Aminotransferase 31 IU/L (<50); Albumin 4.4 g/dL (3.5-5.0); Albumin Globulin Ratio 2.1 (1.0-2.8); Alkaline Phosphatase 54 U/L (38-126); Aspartate Aminotransferase 28 IU/L (17-59); Bilirubin Total 0.6 mg/dL (0.2-1.3); Bilirubin Unconjugated 0.6 mg/dL (0.0-1.1); Globulin 2.1 g/dL (1.7-4.1); HEMOLYSIS < 15 (0-50); Total Protein 6.5 g/dL (6.3-8.2)
== END ==
PROVIDERS: PCP Family Medicine; Referring Provider Physician Assistant Medical; Visit Provider Physician Assistant Medical
DX: B35.1 Tinea unguium (principal)
CPT/HCPCS: 36415; 80076

== ENCOUNTER → 2025-01-04 09:46 | Outpatient (CLI) | payer MEDICARE, OTHER, SELFPAY ==
[2025-01-04 10:55] LABS: Alanine Aminotransferase 33 IU/L (<50); Albumin 4.4 g/dL (3.5-5.0); Albumin Globulin Ratio 2.2 (1.0-2.8); Alkaline Phosphatase 64 U/L (38-126); Aspartate Aminotransferase 32 IU/L (17-59); Bilirubin Total 0.8 mg/dL (0.2-1.3); Bilirubin Unconjugated 0.6 mg/dL (0.0-1.1); HEMOLYSIS < 15 (0-50); Total Protein 6.4 g/dL (6.3-8.2)
== END ==
PROVIDERS: PCP Family Medicine; Referring Provider Physician Assistant Medical; Visit Provider Physician Assistant Medical
DX: B35.1 Tinea unguium (principal)
CPT/HCPCS: 36415; 80076

== ENCOUNTER → 2025-03-05 08:58 | Outpatient (CLI) | payer MEDICARE, OTHER, SELFPAY ==
[2025-03-05 10:01] LABS: Add Manual Diff / Slide Review NO; Basophils Absolute Auto 0 /uL (0-100); Basophils Percent Auto 0.7 % (0-2); Eosinophils Absolute Auto 100 /uL (0-450); Eosinophils Percent Auto 2.7 % (2-4); Hematocrit 45.4 % (41-53); Hemoglobin 15.5 g/dL (13.5-17.5); Lymphocytes Absolute Auto 2100 /uL (1100-4500); Lymphocytes Percent Auto 38.7 % (25-40); Mean Corpuscular HGB Conc 34.2 % (30-36); Mean Corpuscular Hemoglobin 32.1 PG (26-34); Mean Corpuscular Volume 93.9 fL (80-100); Monocytes Absolute Auto 800 /uL (0-900); Neutrophils Absolute Auto 2300 /uL (1500-7000); Neutrophils Percent Auto 42.9 % (50-75); Platelet Count 207 X10^3/uL (150-400); Red Blood Cell Count 4.83 X10^6/uL (4.5-5.9); White Blood Cell Count 5.4 X10^3/uL (4.5-11.0)
[2025-03-05 10:26] LABS: Alanine Aminotransferase 29 IU/L (<50); Albumin 4.3 g/dL (3.5-5.0); Albumin Globulin Ratio 2.2 (1.0-2.8); Alkaline Phosphatase 52 U/L (38-126); Aspartate Aminotransferase 28 IU/L (17-59); Bilirubin Total 0.9 mg/dL (0.2-1.3); Blood Urea Nitrogen 21 mg/dL (9-20); Calcium 8.9 mg/dL (8.4-10.2); Carbon Dioxide 29 mmol/L (22-32); Chloride 104 mmol/L (98-107); Cholesterol 142 mg/dL (140-199); Estimated Glomerular Filt Rate > 60 mL/min (>60); Glucose 91 mg/dL (70-99); HDL Cholesterol 30 mg/dL (40-60); HEMOLYSIS < 15 (0-50); LDL Cholesterol Calculated 89 mg/dL (<100); Potassium 4.5 mmol/L (3.4-5.1); Sodium 139 mmol/L (137-145); Total Protein 6.3 g/dL (6.3-8.2); Triglycerides 113 mg/dL (35-150)
[2025-03-05 10:53] LABS: Thyroid Stimulating Hormone 1.95 uIU/mL (0.47-4.68)
[2025-03-05 10:54] LABS: Prostate Specific Antigen 1.58 ng/mL (0.10-4.00)
== END ==
PROVIDERS: PCP Family Medicine; Referring Provider Family Medicine; Visit Provider Family Medicine
DX: R97.20 Elevated prostate specific antigen [PSA] (principal); E78.5 Hyperlipidemia, unspecified; Z12.5 Encounter for screening for malignant neoplasm of prostate; K21.9 Gastro-esophageal reflux disease without esophagitis
CPT/HCPCS: 36415; 80053; 80061; 84153; 84443; 85025

== ENCOUNTER → 2025-03-15 08:42 | Outpatient (CLI) | payer MEDICARE, OTHER, SELFPAY ==
--- NOTE | 2025-03-15 08:43 | DI.CT.S_ITS ---
PROCEDURE: CT CHEST WO CON INDICATIONS: Abnormal screening ct of lung TECHNIQUE: Noncontrast 2.0-2.5 mm thick sections acquired from the pulmonary apices to the posterior costophrenic angles. 7 mm thick axial MIP, and 5 mm coronal and sagittal reformats were then acquired. For radiation dose reduction, the following was used: automated exposure control, adjustment of mA and/or kV according to patient size. COMPARISON: Outside Facility, , CT THORAX W/O CONTRAST, 07/12/2019, 17:16. [facility], CT, CT CHEST WO CON, 01/15/2024, 10:49. [facility], CT, CT CHEST WO CON, 01/29/2022, 10:14. FINDINGS: Image quality: Diagnostic. Lower Neck: No enlarged lymph nodes. Thyroid: No thyroid nodules which require sonographic follow up, per consensus guidelines. Axillae: No enlarged lymph nodes. Chest Wall: Unremarkable. Bones: Unremarkable. Lungs and Pleura: No pneumothorax or pleural effusions. Stable 5 mm subpleural nodule at the left lung base (3/301). No suspicious new or enlarging pulmonary nodule. No consolidation. Heart: Heart size is normal. No pericardial effusion. Mild coronary artery calcifications. Thoracic Vessels: The aorta and pulmonary arteries demonstrate normal size. Mediastinum and Neema: No enlarged lymph nodes. Esophagus: No wall thickening. No hiatal hernia. Upper Abdomen: Visualized upper abdomen solid organs and bowel loops appear normal. IMPRESSION: Stable 5 mm nodule at the left lung base dating back to 2018, considered benign. No new or enlarging pulmonary nodule. Approved by: Choco Moncada M.D. on 03/15/2025 at 18:51
== END ==
PROVIDERS: PCP Family Medicine; Referring Provider Family Medicine; Visit Provider Family Medicine
DX: R91.8 Other nonspecific abnormal finding of lung field (principal); R91.1 Solitary pulmonary nodule
CPT/HCPCS: 71250